=== PATIENT | female | born 1960 | race Caucasian/White ===

== ENCOUNTER 2020-02-03 13:32 | Outpatient (REF) | payer OTHER, SELFPAY ==
[2020-02-03 14:55] LABS: MANUAL DIFF FLAG NO
--- NOTE | 2020-02-03 14:55 | XR_ITS ---
EXAMINATION: XR CHEST 2 VIEWS CLINICAL INFORMATION: Bibasilar crackles. COMPARISON: None. TECHNIQUE: Frontal and lateral views of the chest were obtained. FINDINGS: The heart, great vessels, pulmonary vasculature and mediastinum are normal. The lungs show no focal infiltrate, effusion or pneumothorax. There is no acute osseous abnormality. A dual-lead, dual-chamber pacemaker/defibrillator device shows no lead fracture. IMPRESSION: No active cardiopulmonary disease.
[2020-02-03 15:00] LABS: Basophils Absolute Auto 0.1 X10*3/uL (0.0-0.2); Basophils Percent Auto 0.7 % (0-2); Eosinophils Absolute Auto 0.2 X10*3/uL (0.0-0.4); Eosinophils Percent Auto 3.4 % (0-4); Hematocrit 42.3 % (37-47); Hemoglobin 14.2 g/dl (12.0-16.0); Imm Gran Abs Auto 0.03 X10*3/uL (0.00-0.03); Imm Gran Pct Auto 0.4 % (0.0-0.4); Lymphocytes Absolute Auto 1.5 X10*3/uL (1.2-4.9); Lymphocytes Percent Auto 20.5 % (20-40); Mean Corpuscular HGB Conc 33.6 g/dl (31.0-35.0); Mean Corpuscular Hemoglobin 31.1 pg (27.0-33.0); Mean Corpuscular Volume 92.8 fL (80-98); Mean Platelet Volume 9.1 fL (9.4-12.3); Monocytes Absolute Auto 0.7 X10*3/uL (0.1-1.2); Monocytes Percent Auto 9.3 % (2-11); Neutrophils Absolute Auto 4.6 X10*3/uL (2.0-8.3); Neutrophils Percent Auto 65.7 % (45-73); Platelet Count 308 X10*3/uL (160-400); Red Blood Count 4.56 X10*6/uL (4.20-5.50); White Blood Count 7.1 X10*3/uL (4.8-10.8)
[2020-02-03 15:26] LABS: Alanine Aminotransferase 62 U/L (0-31); Albumin Level 4.3 g/dL (3.5-5.0); Alkaline Phosphatase 80 U/L (39-117); Anion Gap 12 (12-20); Aspartate Amino Transferase 25 U/L (5-31); Bilirubin Direct 0.3 mg/dL (0.0-0.5); Bilirubin Total 0.7 mg/dL (0.0-1.0); Blood Urea Nitrogen 14 mg/dL (9-16); Calcium 9.1 mg/dL (8.4-10.2); Carbon Dioxide 27 mmol/L (22-29); Chloride 104 mmol/L (96-108); Estimated Glomerular Filt Rate > 60; Glucose Random 101 mg/dL (60-115); Potassium 4.3 mmol/l (3.3-5.1); Sodium 139 mmol/L (135-145); Total Protein 6.8 g/dL (6.5-8.0)
[2020-02-03 16:13] LABS: Erythrocyte Sedimentation Rate 5 MM/HR (0-20)
[2020-02-08 21:02] LABS: Angiotensin Converting Enzyme 29 U/L (9-67)
== END 2020-02-03 13:33 | disposition home or self-care (01) ==
LOC: HO.LAB 13:32
PROVIDERS: PCP Pediatrics; Visit Provider Hospitalist
DX: D86.85 Sarcoid myocarditis (principal); R09.89 Other specified symptoms and signs involving the circulatory and respiratory systems; R74.01 Elevation of levels of liver transaminase levels; G47.33 Obstructive sleep apnea (adult) (pediatric); Z99.89 Dependence on other enabling machines and devices
CPT/HCPCS: 36415; 71046; 80048; 80076; 82164; 85025; 85652; 99205; 99214

== ENCOUNTER 2020-02-20 09:05 | Outpatient (REF) | payer OTHER, SELFPAY | END 2020-02-20 09:06 | disposition home or self-care (01) | LOC: HO.MDS 09:05 | PROVIDERS: PCP Pediatrics; Visit Provider Hospitalist | DX: D86.89 Sarcoidosis of other sites (principal) | CPT/HCPCS: 96413; 96415; J1745 ==

== ENCOUNTER 2020-03-05 09:30 | Outpatient (REF) | payer MEDICARE, OTHER, SELFPAY | END 2020-03-05 09:31 | disposition home or self-care (01) | LOC: HO.MDS 09:30 | PROVIDERS: PCP Pediatrics; Visit Provider Hospitalist | DX: D86.85 Sarcoid myocarditis (principal) | CPT/HCPCS: 96413; 96415; J1745 ==

== ENCOUNTER 2020-03-14 11:28 | Outpatient (REF) | payer MEDICARE, SELFPAY ==
[2020-03-14 13:18] LABS: MANUAL DIFF FLAG NO
[2020-03-14 13:22] LABS: Basophils Absolute Auto 0.1 X10*3/uL (0.0-0.2); Basophils Percent Auto 0.7 % (0-2); Eosinophils Absolute Auto 0.2 X10*3/uL (0.0-0.4); Eosinophils Percent Auto 2.2 % (0-4); Hematocrit 43.7 % (37-47); Hemoglobin 14.5 g/dl (12.0-16.0); Imm Gran Abs Auto 0.03 X10*3/uL (0.00-0.03); Imm Gran Pct Auto 0.4 % (0.0-0.4); Lymphocytes Absolute Auto 1.8 X10*3/uL (1.2-4.9); Lymphocytes Percent Auto 24.8 % (20-40); Mean Corpuscular HGB Conc 33.2 g/dl (31.0-35.0); Mean Corpuscular Hemoglobin 31.2 pg (27.0-33.0); Mean Platelet Volume 9.9 fL (9.4-12.3); Monocytes Absolute Auto 0.7 X10*3/uL (0.1-1.2); Neutrophils Absolute Auto 4.5 X10*3/uL (2.0-8.3); Neutrophils Percent Auto 61.9 % (45-73); Platelet Count 298 X10*3/uL (160-400); Red Blood Count 4.65 X10*6/uL (4.20-5.50); White Blood Count 7.3 X10*3/uL (4.8-10.8)
[2020-03-14 13:32] LABS: D Dimer < 200 NG/ML
[2020-03-14 13:51] LABS: Alanine Aminotransferase 171 U/L (0-31); Albumin Level 4.3 g/dL (3.5-5.0); Alkaline Phosphatase 93 U/L (39-117); Anion Gap 10 (12-20); Aspartate Amino Transferase 49 U/L (5-31); Bilirubin Direct 0.3 mg/dL (0.0-0.5); Bilirubin Total 0.7 mg/dL (0.0-1.0); Blood Urea Nitrogen 12 mg/dL (9-16); Calcium 8.9 mg/dL (8.4-10.2); Carbon Dioxide 30 mmol/L (22-29); Chloride 102 mmol/L (96-108); Estimated Glomerular Filt Rate > 60; Glucose Random 105 mg/dL (60-115); Potassium 4.1 mmol/l (3.3-5.1); Sodium 138 mmol/L (135-145); Total Protein 6.9 g/dL (6.5-8.0); Troponin-I High Sensitivity < 3.5 ng/L (<3.5-17.0)
[2020-03-14 14:41] LABS: Erythrocyte Sedimentation Rate 2 MM/HR (0-20)
[2020-03-22 00:52] LABS: Angiotensin Converting Enzyme 46 U/L (9-67)
== END 2020-03-14 11:29 | disposition home or self-care (01) ==
LOC: HO.LAB 11:28
PROVIDERS: PCP Pediatrics; Visit Provider Hospitalist
DX: R09.02 Hypoxemia (principal); G47.33 Obstructive sleep apnea (adult) (pediatric); D86.85 Sarcoid myocarditis; R09.89 Other specified symptoms and signs involving the circulatory and respiratory systems; R47.01 Aphasia; D86.9 Sarcoidosis, unspecified; Z23 Encounter for immunization; Z79.899 Other long term (current) drug therapy; Z99.89 Dependence on other enabling machines and devices
CPT/HCPCS: 36415; 80048; 80076; 82164; 84484; 85025; 85379; 85652; 90471; 90686; 99212

== ENCOUNTER 2020-04-02 08:49 | Outpatient (REF) | payer MEDICARE, OTHER, SELFPAY | END 2020-04-02 08:50 | disposition home or self-care (01) | LOC: HO.MDS 08:49 | PROVIDERS: PCP Pediatrics; Visit Provider Hospitalist | DX: D86.85 Sarcoid myocarditis (principal) | CPT/HCPCS: 96413; 96415; J1745 ==

== ENCOUNTER 2020-05-04 13:10 | Outpatient (REF) | payer MEDICARE, OTHER, SELFPAY ==
[2020-05-04 15:00] LABS: MANUAL DIFF FLAG NO
[2020-05-04 15:10] LABS: Basophils Percent Auto 0.6 % (0-2); Eosinophils Absolute Auto 0.2 X10*3/uL (0.0-0.4); Eosinophils Percent Auto 2.6 % (0-4); Hematocrit 43.4 % (37-47); Hemoglobin 14.6 g/dl (12.0-16.0); Imm Gran Abs Auto 0.02 X10*3/uL (0.00-0.03); Imm Gran Pct Auto 0.3 % (0.0-0.4); Lymphocytes Absolute Auto 1.9 X10*3/uL (1.2-4.9); Lymphocytes Percent Auto 27.1 % (20-40); Mean Corpuscular HGB Conc 33.6 g/dl (31.0-35.0); Mean Corpuscular Hemoglobin 31.4 pg (27.0-33.0); Mean Corpuscular Volume 93.3 fL (80-98); Mean Platelet Volume 9.9 fL (9.4-12.3); Monocytes Absolute Auto 0.6 X10*3/uL (0.1-1.2); Monocytes Percent Auto 8.5 % (2-11); Neutrophils Absolute Auto 4.2 X10*3/uL (2.0-8.3); Neutrophils Percent Auto 60.9 % (45-73); Platelet Count 319 X10*3/uL (160-400); Red Blood Count 4.65 X10*6/uL (4.20-5.50); Red Cell Distribution Width 12.9 % (11.0-16.0); White Blood Count 6.9 X10*3/uL (4.8-10.8)
[2020-05-04 15:34] LABS: Alanine Aminotransferase 144 U/L (0-31); Albumin Level 4.3 g/dL (3.5-5.0); Alkaline Phosphatase 87 U/L (39-117); Anion Gap 10 (12-20); Aspartate Amino Transferase 71 U/L (5-31); Bilirubin Direct 0.3 mg/dL (0.0-0.5); Bilirubin Total 0.7 mg/dL (0.0-1.0); Blood Urea Nitrogen 12 mg/dL (9-16); Calcium 8.9 mg/dL (8.4-10.2); Carbon Dioxide 30 mmol/L (22-29); Chloride 102 mmol/L (96-108); Estimated Glomerular Filt Rate > 60; Glucose Random 96 mg/dL (60-115); Potassium 4.4 mmol/l (3.3-5.1); Sodium 138 mmol/L (135-145); Total Protein 6.8 g/dL (6.5-8.0)
[2020-05-10 22:02] LABS: Angiotensin Converting Enzyme 28 U/L (9-67)
== END 2020-05-04 13:11 | disposition home or self-care (01) ==
LOC: HO.LAB 13:10
PROVIDERS: PCP Pediatrics; Visit Provider Hospitalist
DX: D86.85 Sarcoid myocarditis (principal); R74.01 Elevation of levels of liver transaminase levels; R09.02 Hypoxemia; R09.89 Other specified symptoms and signs involving the circulatory and respiratory systems; G47.33 Obstructive sleep apnea (adult) (pediatric); F06.30 Mood disorder due to known physiological condition, unspecified; Z79.899 Other long term (current) drug therapy; Z99.89 Dependence on other enabling machines and devices
CPT/HCPCS: 36415; 80048; 80076; 82164; 85025; 99212

== ENCOUNTER 2020-05-14 14:12 | Outpatient (REF) | payer MEDICARE, OTHER, SELFPAY ==
--- NOTE | 2020-05-14 17:20 | PFT_ITS ---
INDICATION: Shortness of breath and sarcoidosis. SPIROMETRY: The FEV1 to FVC of 81% with an FEV1 of 2.64 L, which is 114% predicted and an FVC of 3.28 L, which is 110% predicted. No significant response to bronchodilators noted. The maximum voluntary ventilation only 68% predicted. LUNG VOLUMES: Total lung capacity 109% predicted with a diffusion capacity of 88% predicted. COMPARISON: PFTS from January 2019. INTERPRETATION: No obstructive nor restrictive ventilatory defects identified. No significant response to bronchodilators noted. The patient did have a moderate decrease in the maximum voluntary ventilation likely secondary to deconditioning and also her cardiac disease. Lung volumes are within normal limits and her diffusion capacity is within normal limits. When compared to 2018 trend decrease in the FVC, trend decrease in the FEV1, no significant change in the maximum voluntary ventilation, trend increase in the total lung capacity, and a significant decrease in the diffusion capacity. Clinical correlation warranted. MD ANTOINE Bar/JALEN / [id number]
== END 2020-05-14 14:13 | disposition home or self-care (01) ==
LOC: HO.RESP 14:12
PROVIDERS: Visit Provider Hospitalist
DX: D86.9 Sarcoidosis, unspecified (principal)
CPT/HCPCS: 94060; 94727; 94729

== ENCOUNTER 2020-05-29 09:36 | Outpatient (REF) | payer MEDICARE, SELFPAY | END 2020-05-29 09:37 | disposition home or self-care (01) | LOC: HO.MDS 09:36 | PROVIDERS: PCP Pediatrics; Visit Provider Hospitalist | DX: D86.85 Sarcoid myocarditis (principal) | CPT/HCPCS: 96413; 96415; J1745 ==

== ENCOUNTER 2020-07-16 13:13 | Outpatient (REF) | payer MEDICARE, MEDICAID, SELFPAY ==
[2020-07-16 14:48] LABS: MANUAL DIFF FLAG NO
[2020-07-16 14:54] LABS: Basophils Absolute Auto 0.1 X10*3/uL (0.0-0.2); Basophils Percent Auto 0.7 % (0-2); Eosinophils Absolute Auto 0.2 X10*3/uL (0.0-0.4); Eosinophils Percent Auto 2.6 % (0-4); Hematocrit 42.2 % (37-47); Imm Gran Abs Auto 0.01 X10*3/uL (0.00-0.03); Imm Gran Pct Auto 0.1 % (0.0-0.4); Lymphocytes Absolute Auto 1.6 X10*3/uL (1.2-4.9); Lymphocytes Percent Auto 18.3 % (20-40); Mean Corpuscular HGB Conc 33.2 g/dl (31.0-35.0); Mean Corpuscular Hemoglobin 30.7 pg (27.0-33.0); Mean Corpuscular Volume 92.5 fL (80-98); Mean Platelet Volume 9.7 fL (9.4-12.3); Monocytes Absolute Auto 0.7 X10*3/uL (0.1-1.2); Monocytes Percent Auto 7.8 % (2-11); Neutrophils Absolute Auto 6.1 X10*3/uL (2.0-8.3); Neutrophils Percent Auto 70.5 % (45-73); Platelet Count 378 X10*3/uL (160-400); Red Blood Count 4.56 X10*6/uL (4.20-5.50); Red Cell Distribution Width 12.4 % (11.0-16.0); White Blood Count 8.7 X10*3/uL (4.8-10.8)
[2020-07-16 15:29] LABS: Alanine Aminotransferase 63 U/L (0-31); Albumin Level 4.3 g/dL (3.5-5.0); Alkaline Phosphatase 69 U/L (39-117); Anion Gap 14 (12-20); Aspartate Amino Transferase 38 U/L (5-31); Bilirubin Direct 0.4 mg/dL (0.0-0.5); Bilirubin Total 1.1 mg/dL (0.0-1.0); Blood Urea Nitrogen 9 mg/dL (9-16); Calcium 9.4 mg/dL (8.4-10.2); Carbon Dioxide 29 mmol/L (22-29); Chloride 106 mmol/L (96-108); Estimated Glomerular Filt Rate > 60; Glucose Random 94 mg/dL (60-115); Potassium 4.7 mmol/L (3.3-5.1); Sodium 144 mmol/L (135-145)
[2020-07-16 15:51] LABS: Erythrocyte Sedimentation Rate 16 MM/HR (0-20)
[2020-07-17 04:37] LABS: SARS COV2 IgG Positive (Negative)
[2020-07-22 02:46] LABS: Angiotensin Converting Enzyme 20 U/L (9-67)
== END 2020-07-16 13:14 | disposition home or self-care (01) ==
LOC: HO.LAB 13:13
PROVIDERS: PCP Pediatrics; Visit Provider Hospitalist
DX: D86.85 Sarcoid myocarditis (principal); G47.33 Obstructive sleep apnea (adult) (pediatric); R59.1 Generalized enlarged lymph nodes; R74.01 Elevation of levels of liver transaminase levels; R09.89 Other specified symptoms and signs involving the circulatory and respiratory systems; D86.89 Sarcoidosis of other sites; D86.9 Sarcoidosis, unspecified; Z79.899 Other long term (current) drug therapy; Z86.16 Personal history of COVID-19; Z99.89 Dependence on other enabling machines and devices
CPT/HCPCS: 36415; 80048; 80076; 82164; 85025; 85652; 86769; 99212

== ENCOUNTER 2020-08-17 13:40 | Outpatient (REF) | payer MEDICARE, OTHER, SELFPAY | END 2020-08-17 13:41 | disposition home or self-care (01) | LOC: HO.MDS 13:40 | PROVIDERS: PCP Pediatrics; Visit Provider Hospitalist | DX: D86.89 Sarcoidosis of other sites (principal) | CPT/HCPCS: 96413; 96415; J1745 ==

== ENCOUNTER 2020-09-14 10:09 | Outpatient (REF) | payer MEDICARE, OTHER, SELFPAY | END 2020-09-14 10:10 | disposition home or self-care (01) | LOC: HO.MDS 10:09 | PROVIDERS: PCP Pediatrics; Visit Provider Hospitalist | DX: D86.89 Sarcoidosis of other sites (principal) | CPT/HCPCS: 96413; 96415; J1745 ==

== ENCOUNTER 2020-09-18 13:02 | Outpatient (REF) | payer MEDICARE, MEDICAID, OTHER, SELFPAY ==
[2020-09-18 14:25] LABS: MANUAL DIFF FLAG NO
[2020-09-18 14:34] LABS: Basophils Percent Auto 0.6 % (0-2); Eosinophils Absolute Auto 0.1 X10*3/uL (0.0-0.4); Eosinophils Percent Auto 1.6 % (0-4); Hematocrit 41.6 % (37-47); Hemoglobin 13.9 g/dl (12.0-16.0); Imm Gran Abs Auto 0.01 X10*3/uL (0.00-0.03); Imm Gran Pct Auto 0.2 % (0.0-0.4); Lymphocytes Absolute Auto 2.2 X10*3/uL (1.2-4.9); Lymphocytes Percent Auto 35.8 % (20-40); Mean Corpuscular HGB Conc 33.4 g/dl (31.0-35.0); Mean Corpuscular Hemoglobin 30.6 pg (27.0-33.0); Mean Corpuscular Volume 91.6 fL (80-98); Mean Platelet Volume 10.1 fL (9.4-12.3); Monocytes Absolute Auto 0.5 X10*3/uL (0.1-1.2); Monocytes Percent Auto 8.6 % (2-11); Neutrophils Absolute Auto 3.3 X10*3/uL (2.0-8.3); Neutrophils Percent Auto 53.2 % (45-73); Platelet Count 268 X10*3/uL (160-400); Red Blood Count 4.54 X10*6/uL (4.20-5.50); Red Cell Distribution Width 12.8 % (11.0-16.0); White Blood Count 6.3 X10*3/uL (4.8-10.8)
[2020-09-18 14:46] LABS: Alanine Aminotransferase 51 U/L (0-31); Albumin Level 4.3 g/dL (3.5-5.0); Alkaline Phosphatase 77 U/L (39-117); Anion Gap 10 (12-20); Aspartate Amino Transferase 31 U/L (5-31); Bilirubin Direct 0.3 mg/dL (0.0-0.5); Bilirubin Total 0.8 mg/dL (0.0-1.0); Blood Urea Nitrogen 10 mg/dL (9-16); Calcium 9.3 mg/dL (8.4-10.2); Carbon Dioxide 29 mmol/L (22-29); Chloride 105 mmol/L (96-108); Estimated Glomerular Filt Rate > 60; Glucose Random 83 mg/dL (60-115); Sodium 140 mmol/L (135-145); Total Protein 6.9 g/dL (6.5-8.0)
[2020-09-18 15:27] LABS: Erythrocyte Sedimentation Rate 5 MM/HR (0-20)
== END 2020-09-18 13:03 | disposition home or self-care (01) ==
LOC: HO.LAB 13:02
PROVIDERS: PCP Pediatrics; Visit Provider Hospitalist
DX: R74.01 Elevation of levels of liver transaminase levels (principal); D86.85 Sarcoid myocarditis; U07.1 COVID-19; D86.9 Sarcoidosis, unspecified; R09.02 Hypoxemia; G47.33 Obstructive sleep apnea (adult) (pediatric); Z99.89 Dependence on other enabling machines and devices; J02.8 Acute pharyngitis due to other specified organisms; B00.1 Herpesviral vesicular dermatitis
CPT/HCPCS: 36415; 80048; 80076; 85025; 85652; 99212

== ENCOUNTER 2020-10-12 10:09 | Outpatient (REF) | payer MEDICARE, MEDICAID, OTHER, SELFPAY | END 2020-10-12 10:10 | disposition home or self-care (01) | LOC: HO.MDS 10:09 | PROVIDERS: PCP Pediatrics; Visit Provider Hospitalist | DX: D86.85 Sarcoid myocarditis (principal) | CPT/HCPCS: 96413; 96415; J1745 ==

== ENCOUNTER 2020-11-09 10:05 | Outpatient (REF) | payer MEDICARE, MEDICAID, SELFPAY | END 2020-11-09 10:06 | disposition home or self-care (01) | LOC: HO.MDS 10:05 | PROVIDERS: PCP Pediatrics; Visit Provider Hospitalist | DX: D86.85 Sarcoid myocarditis (principal) | CPT/HCPCS: 96413; 96415; J1745 ==

== ENCOUNTER 2020-11-23 13:23 | Outpatient (REF) | payer MEDICARE, MEDICAID, SELFPAY ==
[2020-11-23 14:49] LABS: MANUAL DIFF FLAG NO
[2020-11-23 14:52] LABS: Basophils Absolute Auto 0.1 X10*3/uL (0.0-0.2); Basophils Percent Auto 0.7 % (0-2); Eosinophils Absolute Auto 0.2 X10*3/uL (0.0-0.4); Eosinophils Percent Auto 2.3 % (0-4); Hematocrit 40.8 % (37-47); Hemoglobin 13.6 g/dl (12.0-16.0); Imm Gran Abs Auto 0.02 X10*3/uL (0.00-0.03); Imm Gran Pct Auto 0.3 % (0.0-0.4); Lymphocytes Percent Auto 28.8 % (20-40); Mean Corpuscular HGB Conc 33.3 g/dl (31.0-35.0); Mean Corpuscular Hemoglobin 31.3 pg (27.0-33.0); Mean Corpuscular Volume 93.8 fL (80-98); Mean Platelet Volume 9.7 fL (9.4-12.3); Monocytes Absolute Auto 0.7 X10*3/uL (0.1-1.2); Monocytes Percent Auto 10.1 % (2-11); Neutrophils Absolute Auto 4.1 X10*3/uL (2.0-8.3); Neutrophils Percent Auto 57.8 % (45-73); Platelet Count 268 X10*3/uL (160-400); Red Blood Count 4.35 X10*6/uL (4.20-5.50); Red Cell Distribution Width 13.2 % (11.0-16.0); White Blood Count 7.1 X10*3/uL (4.8-10.8)
[2020-11-23 15:19] LABS: Alanine Aminotransferase 41 U/L (0-31); Albumin Level 4.1 g/dL (3.5-5.0); Alkaline Phosphatase 76 U/L (39-117); Anion Gap 11 (12-20); Aspartate Amino Transferase 25 U/L (5-31); Bilirubin Direct 0.2 mg/dL (0.0-0.5); Bilirubin Total 0.7 mg/dL (0.0-1.0); Blood Urea Nitrogen 15 mg/dL (9-16); Calcium 9.6 mg/dL (8.4-10.2); Carbon Dioxide 30 mmol/L (22-29); Chloride 105 mmol/L (96-108); Estimated Glomerular Filt Rate > 60; Glucose Random 82 mg/dL (60-115); Sodium 141 mmol/L (135-145); Total Protein 6.7 g/dL (6.5-8.0)
[2020-11-25 08:03] LABS: SARS COV2 IgG Positive (Negative)
== END 2020-11-23 13:24 | disposition home or self-care (01) ==
LOC: HO.LAB 13:23
PROVIDERS: PCP Pediatrics; Visit Provider Hospitalist
DX: U07.1 COVID-19 (principal); D86.9 Sarcoidosis, unspecified; R74.01 Elevation of levels of liver transaminase levels; D86.85 Sarcoid myocarditis; G47.33 Obstructive sleep apnea (adult) (pediatric); Z99.89 Dependence on other enabling machines and devices; Z79.899 Other long term (current) drug therapy
CPT/HCPCS: 99212; 36415; 80048; 80076; 85025; 86769

== ENCOUNTER 2020-12-07 10:12 | Outpatient (REF) | payer MEDICARE, MEDICAID, SELFPAY | END 2020-12-07 10:13 | disposition home or self-care (01) | LOC: HO.MDS 10:12 | PROVIDERS: PCP Pediatrics; Visit Provider Hospitalist | DX: D86.85 Sarcoid myocarditis (principal) | CPT/HCPCS: 96413; 96415; J1745 ==

== ENCOUNTER 2021-01-04 10:09 | Outpatient (REF) | payer MEDICARE, MEDICAID, SELFPAY | END 2021-01-04 10:10 | disposition home or self-care (01) | LOC: HO.MDS 10:09 | PROVIDERS: PCP Pediatrics; Visit Provider Hospitalist | DX: D86.85 Sarcoid myocarditis (principal) | CPT/HCPCS: 96413; 96415; J1745 ==

== ENCOUNTER 2021-02-01 10:10 | Outpatient (REF) | payer MEDICARE, MEDICAID, SELFPAY | END 2021-02-01 10:11 | disposition home or self-care (01) | LOC: HO.MDS 10:10 | PROVIDERS: PCP Pediatrics; Visit Provider Hospitalist | DX: D86.85 Sarcoid myocarditis (principal) | CPT/HCPCS: 96413; 96415; J1745 ==

== ENCOUNTER 2021-02-22 14:02 | Outpatient (REF) | payer MEDICARE, MEDICAID, SELFPAY ==
--- NOTE | ~2021-02-22 | XR_ITS ---
EXAMINATION: XR CHEST CLINICAL INFORMATION: Sarcoidosis COMPARISON: Previous chest x-ray January 2020 TECHNIQUE: 2 views of the chest were obtained. FINDINGS: The cardiac silhouette does not appear enlarged. The left subclavian AICD device appears unchanged. Hilar and mediastinal contours are unremarkable. The lungs are clear. There is no pleural effusion or pneumothorax. Bony structures are unremarkable. XR/XR chest 2V IMPRESSION: Left subclavian AICD device. No x-ray evidence of sarcoidosis.
[2021-02-22 15:06] LABS: MANUAL DIFF FLAG NO
[2021-02-22 15:17] LABS: Basophils Percent Auto 0.5 % (0-2); Eosinophils Absolute Auto 0.1 X10*3/uL (0.0-0.4); Eosinophils Percent Auto 1.6 % (0-4); Hematocrit 42.8 % (37-47); Hemoglobin 14.8 g/dl (12.0-16.0); Imm Gran Abs Auto 0.02 X10*3/uL (0.00-0.03); Imm Gran Pct Auto 0.3 % (0.0-0.4); Lymphocytes Absolute Auto 2.1 X10*3/uL (1.2-4.9); Lymphocytes Percent Auto 28.9 % (20-40); Mean Corpuscular HGB Conc 34.6 g/dl (31.0-35.0); Mean Corpuscular Hemoglobin 31.8 pg (27.0-33.0); Mean Platelet Volume 9.8 fL (9.4-12.3); Monocytes Absolute Auto 0.6 X10*3/uL (0.1-1.2); Monocytes Percent Auto 8.3 % (2-11); Neutrophils Absolute Auto 4.4 X10*3/uL (2.0-8.3); Neutrophils Percent Auto 60.4 % (45-73); Platelet Count 307 X10*3/uL (160-400); Red Blood Count 4.65 X10*6/uL (4.20-5.50); Red Cell Distribution Width 12.1 % (11.0-16.0); White Blood Count 7.3 X10*3/uL (4.8-10.8)
[2021-02-22 15:37] LABS: Alanine Aminotransferase 41 U/L (0-31); Albumin Level 4.4 g/dL (3.5-5.0); Alkaline Phosphatase 72 U/L (39-117); Anion Gap 13 (12-20); Aspartate Amino Transferase 27 U/L (5-31); Bilirubin Direct 0.3 mg/dL (0.0-0.5); Bilirubin Total 0.8 mg/dL (0.0-1.0); Blood Urea Nitrogen 12 mg/dL (9-16); Calcium 9.5 mg/dL (8.4-10.2); Carbon Dioxide 27 mmol/L (22-29); Chloride 104 mmol/L (96-108); Estimated Glomerular Filt Rate > 60; Glucose Random 105 mg/dL (60-115); Sodium 140 mmol/L (135-145)
[2021-02-22 16:01] LABS: Erythrocyte Sedimentation Rate 2 MM/HR (0-20)
[2021-02-28 06:32] LABS: Angiotensin Converting Enzyme 30.8 U/L (9-67)
== END 2021-02-22 14:03 | disposition home or self-care (01) ==
LOC: HO.LAB 14:02
PROVIDERS: PCP Pediatrics; Visit Provider Hospitalist
DX: U07.1 COVID-19 (principal); D86.9 Sarcoidosis, unspecified; R74.01 Elevation of levels of liver transaminase levels; D86.85 Sarcoid myocarditis; G47.33 Obstructive sleep apnea (adult) (pediatric); Z99.89 Dependence on other enabling machines and devices; Z23 Encounter for immunization
CPT/HCPCS: 36415; 71046; 80048; 80076; 82164; 85025; 85652; 90471; 90686; 99212

== ENCOUNTER 2021-03-04 10:04 | Outpatient (REF) | payer MEDICARE, MEDICAID, SELFPAY | END 2021-03-04 10:05 | disposition home or self-care (01) | LOC: HO.MDS 10:04 | PROVIDERS: PCP Pediatrics; Visit Provider Hospitalist | DX: D86.85 Sarcoid myocarditis (principal) | CPT/HCPCS: 96413; 96415; J1745 ==

== ENCOUNTER 2021-04-01 10:16 | Outpatient (REF) | payer MEDICARE, MEDICAID, SELFPAY | END 2021-04-01 10:17 | disposition home or self-care (01) | LOC: HO.MDS 10:16 | PROVIDERS: PCP Pediatrics; Visit Provider Hospitalist | DX: D86.85 Sarcoid myocarditis (principal) | CPT/HCPCS: 96413; 96415; J1745 ==

== ENCOUNTER 2021-04-29 10:09 | Outpatient (REF) | payer MEDICARE, MEDICAID, SELFPAY | END 2021-04-29 10:10 | disposition home or self-care (01) | LOC: HO.MDS 10:09 | PROVIDERS: PCP Pediatrics; Visit Provider Hospitalist | DX: D86.85 Sarcoid myocarditis (principal) | CPT/HCPCS: 96413; 96415; J1745 ==

== ENCOUNTER 2021-05-13 09:54 | Outpatient (REF) | payer MEDICARE, MEDICAID, SELFPAY ==
[2021-05-13 11:17] LABS: MANUAL DIFF FLAG NO
[2021-05-13 11:30] LABS: Basophils Absolute Auto 0.1 X10*3/uL (0.0-0.2); Basophils Percent Auto 1.1 % (0-2); Eosinophils Absolute Auto 0.1 X10*3/uL (0.0-0.4); Eosinophils Percent Auto 2.3 % (0-4); Hematocrit 43.6 % (37.0-47.0); Hemoglobin 14.7 g/dl (12.0-16.0); Imm Gran Abs Auto 0.02 X10*3/uL (0.00-0.03); Imm Gran Pct Auto 0.4 % (0.0-0.4); Lymphocytes Absolute Auto 1.8 X10*3/uL (1.2-4.9); Mean Corpuscular HGB Conc 33.7 g/dl (31.0-35.0); Mean Corpuscular Hemoglobin 31.4 pg (27.0-33.0); Mean Corpuscular Volume 93.2 fL (80.0-98.0); Mean Platelet Volume 9.8 fL (9.4-12.3); Monocytes Absolute Auto 0.5 X10*3/uL (0.1-1.2); Monocytes Percent Auto 9.4 % (2-11); Neutrophils Percent Auto 53.8 % (45-73); Platelet Count 266 X10*3/uL (160-400); Red Blood Count 4.68 X10*6/uL (4.20-5.50); Red Cell Distribution Width 12.5 % (11.0-16.0); White Blood Count 5.5 X10*3/uL (4.8-10.8)
[2021-05-13 12:07] LABS: Erythrocyte Sedimentation Rate 2 MM/HR (0-20)
[2021-05-13 12:15] LABS: Alanine Aminotransferase 46 U/L (0-31); Albumin Level 4.3 g/dL (3.5-5.0); Alkaline Phosphatase 77 U/L (39-117); Anion Gap 10 (12-20); Aspartate Amino Transferase 25 U/L (5-31); Bilirubin Direct 0.3 mg/dL (0.0-0.5); Bilirubin Total 0.8 mg/dL (0.0-1.0); Blood Urea Nitrogen 18 mg/dL (9-16); Calcium 9.7 mg/dL (8.4-10.2); Carbon Dioxide 30 mmol/L (22-29); Chloride 108 mmol/L (96-108); Estimated Glomerular Filt Rate > 60; Glucose Random 95 mg/dL (60-115); Potassium 4.8 mmol/L (3.3-5.1); Sodium 143 mmol/L (135-145); Total Protein 7.2 g/dL (6.5-8.0)
[2021-05-14 04:20] LABS: SARS COV2 IgG Negative (Negative)
== END 2021-05-13 09:55 | disposition home or self-care (01) ==
LOC: HO.LAB 09:54
PROVIDERS: PCP Pediatrics; Visit Provider Hospitalist
DX: G47.33 Obstructive sleep apnea (adult) (pediatric) (principal); D86.9 Sarcoidosis, unspecified; U07.1 COVID-19; D86.85 Sarcoid myocarditis; K21.00 Gastro-esophageal reflux disease with esophagitis, without bleeding; R74.01 Elevation of levels of liver transaminase levels; Z99.89 Dependence on other enabling machines and devices
CPT/HCPCS: 36415; 80048; 80076; 85025; 85652; 86769; 99212

== ENCOUNTER 2021-05-30 07:33 | Outpatient (REF) | payer MEDICARE, MEDICAID, SELFPAY | END 2021-05-30 07:34 | disposition home or self-care (01) | LOC: HO.MDS 07:33 | PROVIDERS: PCP Pediatrics; Visit Provider Hospitalist | DX: D86.85 Sarcoid myocarditis (principal); G47.33 Obstructive sleep apnea (adult) (pediatric); Z99.89 Dependence on other enabling machines and devices | CPT/HCPCS: 96413; 96415; J1745 ==

== ENCOUNTER 2021-06-24 10:35 | Outpatient (REF) | payer MEDICARE, MEDICAID, SELFPAY | END 2021-06-24 10:36 | disposition home or self-care (01) | LOC: HO.MDS 10:35 | PROVIDERS: Visit Provider Hospitalist | DX: D86.85 Sarcoid myocarditis (principal) | CPT/HCPCS: 96413; 96415; J1745 ==

== ENCOUNTER 2021-07-22 10:04 | Outpatient (REF) | payer MEDICARE, MEDICAID, SELFPAY | END 2021-07-22 10:05 | disposition home or self-care (01) | LOC: HO.MDS 10:04 | PROVIDERS: Visit Provider Hospitalist | DX: D86.85 Sarcoid myocarditis (principal) | CPT/HCPCS: 96413; 96415; J1745 ==

== ENCOUNTER 2021-08-19 10:16 | Outpatient (REF) | payer MEDICARE, MEDICAID, SELFPAY | END 2021-08-19 10:17 | disposition home or self-care (01) | LOC: HO.MDS 10:16 | PROVIDERS: Visit Provider Hospitalist | DX: D86.85 Sarcoid myocarditis (principal) | CPT/HCPCS: 96413; 96415; J1745 ==

== ENCOUNTER 2021-09-16 10:05 | Outpatient (REF) | payer MEDICARE, MEDICAID, SELFPAY | END 2021-09-16 10:06 | disposition home or self-care (01) | LOC: HO.MDS 10:05 | PROVIDERS: Visit Provider Hospitalist | DX: D86.85 Sarcoid myocarditis (principal) | CPT/HCPCS: 96413; 96415; J1745 ==

== ENCOUNTER 2021-10-14 10:11 | Outpatient (REF) | payer MEDICARE, MEDICAID, SELFPAY | END 2021-10-14 10:12 | disposition home or self-care (01) | LOC: HO.MDS 10:11 | PROVIDERS: Visit Provider Hospitalist | DX: D86.85 Sarcoid myocarditis (principal) | CPT/HCPCS: 96413; 96415; J1745 ==

== ENCOUNTER 2021-11-12 13:40 | Outpatient (REF) | payer MEDICARE, MEDICAID, SELFPAY ==
[2021-11-12 13:49] LABS: MANUAL DIFF FLAG NO
[2021-11-12 14:37] LABS: Basophils Percent Auto 0.4 % (0-2); Eosinophils Absolute Auto 0.1 X10*3/uL (0.0-0.4); Eosinophils Percent Auto 1.6 % (0-4); Hematocrit 40.2 % (37.0-47.0); Hemoglobin 13.8 g/dl (12.0-16.0); Imm Gran Abs Auto 0.02 X10*3/uL (0.00-0.03); Imm Gran Pct Auto 0.3 % (0.0-0.4); Lymphocytes Absolute Auto 2.6 X10*3/uL (1.2-4.9); Mean Corpuscular HGB Conc 34.3 g/dl (31.0-35.0); Mean Corpuscular Volume 90.3 fL (80.0-98.0); Mean Platelet Volume 10.1 fL (9.4-12.3); Monocytes Absolute Auto 0.6 X10*3/uL (0.1-1.2); Monocytes Percent Auto 7.8 % (2-11); Neutrophils Percent Auto 54.9 % (45-73); Platelet Count 263 X10*3/uL (160-400); Red Blood Count 4.45 X10*6/uL (4.20-5.50); Red Cell Distribution Width 12.4 % (11.0-16.0); White Blood Count 7.3 X10*3/uL (4.8-10.8)
[2021-11-12 15:00] LABS: Alanine Aminotransferase 59 U/L (0-31); Albumin Level 4.2 g/dL (3.5-5.0); Alkaline Phosphatase 71 U/L (39-117); Anion Gap 11 (12-20); Aspartate Amino Transferase 37 U/L (5-31); Bilirubin Direct 0.5 mg/dL (0.0-0.5); Bilirubin Total 1.7 mg/dL (0.0-1.0); Blood Urea Nitrogen 15 mg/dL (9-16); Calcium 9.4 mg/dL (8.4-10.2); Carbon Dioxide 28 mmol/L (22-29); Chloride 104 mmol/L (96-108); Estimated Glomerular Filt Rate > 60; Glucose Random 82 mg/dL (60-115); Potassium 4.3 mmol/L (3.3-5.1); Sodium 139 mmol/L (135-145); Total Protein 6.9 g/dL (6.5-8.0)
[2021-11-12 15:19] LABS: Erythrocyte Sedimentation Rate 3 MM/HR (0-20)
[2021-11-14 23:32] LABS: TS Negative Control Passed; TS Panel A 0; TS Panel B 0; TS Positive Control Passed; TSpotTB Negative (Negative)
[2021-11-18 13:21] LABS: Vitamin D 25-OH, D2 <4 ng/mL; Vitamin D 25-OH, D3 39 ng/mL; Vitamin D 25-OH, Total 39 ng/mL (30-100)
== END 2021-11-12 13:41 | disposition home or self-care (01) ==
LOC: HO.LAB 13:40
PROVIDERS: PCP Pediatrics; Visit Provider Hospitalist
DX: Z11.1 Encounter for screening for respiratory tuberculosis (principal); D86.9 Sarcoidosis, unspecified; D86.85 Sarcoid myocarditis; R74.01 Elevation of levels of liver transaminase levels; K21.00 Gastro-esophageal reflux disease with esophagitis, without bleeding; G47.33 Obstructive sleep apnea (adult) (pediatric); Z99.89 Dependence on other enabling machines and devices
CPT/HCPCS: 36415; 80048; 80076; 82306; 85025; 85652; 86481; 99212

== ENCOUNTER 2021-11-15 10:15 | Outpatient (REF) | payer MEDICARE, MEDICAID, SELFPAY | END 2021-11-15 10:16 | disposition home or self-care (01) | LOC: HO.MDS 10:15 | PROVIDERS: Visit Provider Hospitalist | DX: D86.85 Sarcoid myocarditis (principal) | CPT/HCPCS: 96413; 96415; J1745 ==

== ENCOUNTER 2021-12-13 10:20 | Outpatient (REF) | payer MEDICARE, MEDICAID, SELFPAY | END 2021-12-13 10:21 | disposition home or self-care (01) | LOC: HO.MDS 10:20 | PROVIDERS: Visit Provider Hospitalist | DX: D86.85 Sarcoid myocarditis (principal) | CPT/HCPCS: 96365; J1745 ==

== ENCOUNTER 2022-01-10 10:46 | Outpatient (REF) | payer MEDICARE, MEDICAID, SELFPAY | END 2022-01-10 10:47 | disposition home or self-care (01) | LOC: HO.MDS 10:46 | PROVIDERS: Visit Provider Hospitalist | DX: D86.85 Sarcoid myocarditis (principal) | CPT/HCPCS: 96413; 96415; J1745 ==

== ENCOUNTER 2022-02-04 10:14 | Outpatient (REF) | payer MEDICARE, MEDICAID, SELFPAY | END 2022-02-04 10:15 | disposition home or self-care (01) | LOC: HO.MDS 10:14 | PROVIDERS: Visit Provider Hospitalist | DX: D86.85 Sarcoid myocarditis (principal) | CPT/HCPCS: 96413; 96415; J1745 ==

== ENCOUNTER 2022-02-14 09:14 | Outpatient (REF) | payer MEDICARE, MEDICAID, SELFPAY ==
--- NOTE | ~2022-02-14 | US_ITS ---
EXAMINATION: US ABDOMEN LIMITED CLINICAL INFORMATION: Elevated liver transaminase levels. COMPARISON: None TECHNIQUE: Real-time imaging of the right upper quadrant abdominal viscera. FINDINGS: PANCREAS: Normal. LIVER: The liver is normal in size. The liver contour is normal. Liver echotexture is increased. No focal hepatic lesion. There is no intrahepatic biliary duct dilatation seen. GALLBLADDER: Normal. The gallbladder is physiologically distended without evidence of stones, sludge, polyps, wall thickening or pericholecystic fluid. COMMON BILE DUCT: Normal in caliber measuring 0.7 cm in diameter. RIGHT KIDNEY: Normal. No hydronephrosis. No renal calculi or focal parenchymal lesions. The kidney measures 11.5 cm in maximum dimension. FREE FLUID: None. US/US abdomen limited IMPRESSION: Echogenic liver. Differential would include fatty infiltration and hepatocellular disease.
== END 2022-02-14 09:15 | disposition home or self-care (01) ==
LOC: HO.US 09:14
PROVIDERS: Visit Provider Hospitalist
DX: R74.01 Elevation of levels of liver transaminase levels (principal)
CPT/HCPCS: 76705

== ENCOUNTER 2022-03-04 10:06 | Outpatient (REF) | payer MEDICARE, MEDICAID, SELFPAY | END 2022-03-04 10:07 | disposition home or self-care (01) | LOC: HO.MDS 10:06 | PROVIDERS: Visit Provider Hospitalist | DX: D86.85 Sarcoid myocarditis (principal) | CPT/HCPCS: 96413; 96415; J1745 ==

== ENCOUNTER 2022-04-01 10:16 | Outpatient (REF) | payer MEDICARE, MEDICAID, SELFPAY | END 2022-04-01 10:17 | disposition home or self-care (01) | LOC: HO.MDS 10:16 | PROVIDERS: Visit Provider Hospitalist | DX: D86.85 Sarcoid myocarditis (principal) | CPT/HCPCS: 96413; 96415; J1745 ==

== ENCOUNTER 2022-04-29 10:17 | Outpatient (REF) | payer OTHER, SELFPAY | END 2022-04-29 10:18 | disposition home or self-care (01) | LOC: HO.MDS 10:17 | PROVIDERS: Visit Provider Hospitalist | DX: D86.85 Sarcoid myocarditis (principal) | CPT/HCPCS: 96413; 96415; J1745 ==

== ENCOUNTER → 2022-05-15 12:52 | Outpatient (BNVA) | payer OTHER, SELFPAY | PROVIDERS: PCP Pediatrics; Visit Provider Hospitalist | DX: R74.01 Elevation of levels of liver transaminase levels (principal); D86.85 Sarcoid myocarditis; J44.9 Chronic obstructive pulmonary disease, unspecified; J31.0 Chronic rhinitis; G47.33 Obstructive sleep apnea (adult) (pediatric); Z99.89 Dependence on other enabling machines and devices | CPT/HCPCS: 99212 ==

== ENCOUNTER 2022-05-15 13:28 | Outpatient (REF) | payer OTHER, SELFPAY ==
[2022-05-15 14:56] LABS: Erythrocyte Sedimentation Rate 5 MM/HR (0-20)
[2022-05-15 15:01] LABS: Alanine Aminotransferase 33 U/L (0-31); Alkaline Phosphatase 62 U/L (39-117); Anion Gap 10 (12-20); Aspartate Amino Transferase 21 U/L (5-31); Bilirubin Direct 0.3 mg/dL (0.0-0.5); Bilirubin Total 1.3 mg/dL (0.0-1.0); Blood Urea Nitrogen 11 mg/dL (9-16); Calcium 9.4 mg/dL (8.4-10.2); Carbon Dioxide 31 mmol/L (22-29); Chloride 103 mmol/L (96-108); Estimated Glomerular Filt Rate > 60; Glucose Random 80 mg/dL (60-115); Potassium 3.6 mmol/L (3.3-5.1); Sodium 140 mmol/L (135-145); Total Protein 6.5 g/dL (6.5-8.0)
== END 2022-05-15 13:29 | disposition home or self-care (01) ==
LOC: HO.MDS 13:28
PROVIDERS: PCP Pediatrics; Visit Provider Hospitalist
DX: D86.85 Sarcoid myocarditis (principal); R74.01 Elevation of levels of liver transaminase levels; R59.1 Generalized enlarged lymph nodes; K21.00 Gastro-esophageal reflux disease with esophagitis, without bleeding; G47.33 Obstructive sleep apnea (adult) (pediatric); Z99.89 Dependence on other enabling machines and devices; Z79.899 Other long term (current) drug therapy
CPT/HCPCS: 36415; 80048; 80076; 85652

== ENCOUNTER 2022-05-27 09:32 | Outpatient (REF) | payer OTHER, SELFPAY | END 2022-05-27 09:33 | disposition home or self-care (01) | LOC: HO.MDS 09:32 | PROVIDERS: Visit Provider Hospitalist | DX: D86.85 Sarcoid myocarditis (principal) | CPT/HCPCS: 96413; 96415; J1745 ==

== ENCOUNTER 2022-06-24 10:36 | Outpatient (REF) | payer OTHER, SELFPAY | END 2022-06-24 10:37 | disposition home or self-care (01) | LOC: HO.MDS 10:36 | PROVIDERS: Visit Provider Hospitalist | DX: D86.85 Sarcoid myocarditis (principal) | CPT/HCPCS: 96413; 96415; J1745 ==

== ENCOUNTER 2022-07-22 10:12 | Outpatient (REF) | payer OTHER, SELFPAY | END 2022-07-22 10:13 | disposition home or self-care (01) | LOC: HO.MDS 10:12 | PROVIDERS: Visit Provider Hospitalist | DX: D86.85 Sarcoid myocarditis (principal) | CPT/HCPCS: 96413; 96415; J1745 ==

== ENCOUNTER 2022-08-19 09:56 | Outpatient (REF) | payer OTHER, SELFPAY | END 2022-08-19 09:57 | disposition home or self-care (01) | LOC: HO.MDS 09:56 | PROVIDERS: Visit Provider Hospitalist | DX: D86.85 Sarcoid myocarditis (principal) | CPT/HCPCS: 96413; 96415; J1745 ==

== ENCOUNTER 2022-09-03 11:29 | Outpatient (REF) | payer OTHER, SELFPAY ==
[2022-09-03 12:35] LABS: MANUAL DIFF FLAG NO
[2022-09-03 13:10] LABS: Basophils Percent Auto 0.5 % (0-2); Eosinophils Absolute Auto 0.1 X10*3/uL (0.0-0.4); Eosinophils Percent Auto 1.4 % (0-4); Hematocrit 46.5 % (37.0-47.0); Hemoglobin 15.6 g/dl (12.0-16.0); Imm Gran Abs Auto 0.02 X10*3/uL (0.00-0.03); Imm Gran Pct Auto 0.2 % (0.0-0.4); Lymphocytes Absolute Auto 1.7 X10*3/uL (1.2-4.9); Mean Corpuscular HGB Conc 33.5 g/dl (31.0-35.0); Mean Corpuscular Hemoglobin 30.8 pg (27.0-33.0); Mean Corpuscular Volume 91.7 fL (80.0-98.0); Mean Platelet Volume 9.7 fL (9.4-12.3); Monocytes Absolute Auto 0.6 X10*3/uL (0.1-1.2); Monocytes Percent Auto 7.1 % (2-11); Neutrophils Absolute Auto 5.9 x10*3/uL (2.0-8.3); Neutrophils Percent Auto 70.8 % (45-73); Platelet Count 320 X10*3/uL (160-400); Red Blood Count 5.07 X10*6/uL (4.20-5.50); Red Cell Distribution Width 12.5 % (11.0-16.0); White Blood Count 8.4 X10*3/uL (4.8-10.8)
[2022-09-03 13:57] LABS: Erythrocyte Sedimentation Rate 3 MM/HR (0-20)
[2022-09-03 13:58] LABS: Alanine Aminotransferase 72 U/L (0-31); Albumin Level 4.4 g/dL (3.5-5.0); Alkaline Phosphatase 74 U/L (39-117); Anion Gap 10 (12-20); Aspartate Amino Transferase 42 U/L (5-31); Bilirubin Direct 0.5 mg/dL (0.0-0.5); Bilirubin Total 2.1 mg/dL (0.0-1.0); Blood Urea Nitrogen 16 mg/dL (9-16); Calcium 9.6 mg/dL (8.4-10.2); Carbon Dioxide 32 mmol/L (22-29); Chloride 107 mmol/L (96-108); Estimated Glomerular Filt Rate > 60; Glucose Random 102 mg/dL (60-115); Sodium 144 mmol/L (135-145); Total Protein 7.2 g/dL (6.5-8.0)
[2022-09-10 08:02] LABS: Angiotensin Converting Enzyme 25.9 U/L (9-67)
== END 2022-09-03 11:30 | disposition home or self-care (01) ==
LOC: HO.LAB 11:29
PROVIDERS: PCP Pediatrics; Visit Provider Hospitalist
DX: D86.9 Sarcoidosis, unspecified (principal); K21.00 Gastro-esophageal reflux disease with esophagitis, without bleeding; R74.01 Elevation of levels of liver transaminase levels; D86.85 Sarcoid myocarditis
CPT/HCPCS: 36415; 80048; 80076; 82164; 85025; 85652; 99212

== ENCOUNTER 2022-09-18 10:20 | Outpatient (REF) | payer OTHER, SELFPAY | END 2022-09-18 10:21 | disposition home or self-care (01) | LOC: HO.MDS 10:20 | PROVIDERS: Visit Provider Hospitalist | DX: D86.85 Sarcoid myocarditis (principal) | CPT/HCPCS: 96413; 96415; J1745 ==

== ENCOUNTER 2022-10-17 10:08 | Outpatient (REF) | payer OTHER, SELFPAY | END 2022-10-17 10:09 | disposition home or self-care (01) | LOC: HO.MDS 10:08 | PROVIDERS: Visit Provider Hospitalist | DX: D86.85 Sarcoid myocarditis (principal) | CPT/HCPCS: 96413; J1745 ==

== ENCOUNTER 2022-11-14 10:30 | Outpatient (REF) | payer OTHER, SELFPAY | END 2022-11-14 10:31 | disposition home or self-care (01) | LOC: HO.MDS 10:30 | PROVIDERS: Visit Provider Hospitalist | DX: D86.9 Sarcoidosis, unspecified (principal) | CPT/HCPCS: 96365; 96366; J1745 ==

== ENCOUNTER 2022-12-12 10:25 | Outpatient (REF) | payer OTHER, SELFPAY ==
[2022-12-15 16:44] LABS: TS Negative Control Passed; TS Panel A 0; TS Panel B 0; TS Positive Control Passed; TSpotTB Negative (Negative)
== END 2022-12-12 10:26 | disposition home or self-care (01) ==
LOC: HO.MDS 10:25
PROVIDERS: Visit Provider Hospitalist
DX: D86.85 Sarcoid myocarditis (principal)
CPT/HCPCS: 36415; 86481; 96413; 96415; J1745

== ENCOUNTER 2022-12-23 14:26 | Outpatient (REF) | payer OTHER, SELFPAY ==
[2022-12-23 15:41] LABS: Basophils Percent Auto 0.5 % (0-2); Eosinophils Absolute Auto 0.1 X10*3/uL (0.0-0.4); Eosinophils Percent Auto 1.6 % (0-4); Hematocrit 39.2 % (37.0-47.0); Hemoglobin 13.3 g/dl (12.0-16.0); Imm Gran Abs Auto 0.02 X10*3/uL (0.00-0.03); Imm Gran Pct Auto 0.3 % (0.0-0.4); Lymphocytes Absolute Auto 2.2 X10*3/uL (1.2-4.9); Lymphocytes Percent Auto 28.3 % (20-40); MANUAL DIFF FLAG SCAN; Mean Corpuscular HGB Conc 33.9 g/dl (31.0-35.0); Mean Corpuscular Hemoglobin 29.8 pg (27.0-33.0); Mean Corpuscular Volume 87.9 fL (80.0-98.0); Mean Platelet Volume 10.5 fL (9.4-12.3); Monocytes Percent Auto 13.5 % (2-11); Neutrophils Absolute Auto 4.3 x10*3/uL (2.0-8.3); Neutrophils Percent Auto 55.8 % (45-73); Red Blood Count 4.46 X10*6/uL (4.20-5.50); Red Cell Distribution Width 12.7 % (11.0-16.0); SCAN SMEAR FLAG 1; White Blood Count 7.7 X10*3/uL (4.8-10.8)
[2022-12-23 16:32] LABS: Alanine Aminotransferase 80 U/L (0-31); Albumin Level 3.8 g/dL (3.5-5.0); Alkaline Phosphatase 156 U/L (39-117); Anion Gap 11 (12-20); Aspartate Amino Transferase 40 U/L (5-31); Bilirubin Direct 0.3 mg/dL (0.0-0.5); Bilirubin Total 0.8 mg/dL (0.0-1.0); Blood Urea Nitrogen 10 mg/dL (9-16); Carbon Dioxide 29 mmol/L (22-29); Chloride 103 mmol/L (96-108); Estimated Glomerular Filt Rate > 60; Glucose Random 89 mg/dL (60-115); Sodium 140 mmol/L (135-145)
[2022-12-23 21:56] LABS: SLIDE REVIEW VERIFIED
[2022-12-25 20:38] LABS: TS Negative Control Passed; TS Panel A 0; TS Panel B 0; TS Positive Control Passed; TSpotTB Negative (Negative)
== END 2022-12-23 14:27 | disposition home or self-care (01) ==
LOC: HO.LAB 14:26
PROVIDERS: PCP Pediatrics; Visit Provider Hospitalist
DX: Z11.1 Encounter for screening for respiratory tuberculosis (principal); D86.85 Sarcoid myocarditis; R74.01 Elevation of levels of liver transaminase levels
CPT/HCPCS: 36415; 80048; 80076; 85025; 86481

== ENCOUNTER 2023-01-09 10:11 | Outpatient (REF) | payer OTHER, SELFPAY | END 2023-01-09 10:12 | disposition home or self-care (01) | LOC: HO.MDS 10:11 | PROVIDERS: Visit Provider Hospitalist | DX: D86.85 Sarcoid myocarditis (principal) | CPT/HCPCS: 96365; 96366; J1745 ==

== ENCOUNTER 2023-02-10 10:04 | Outpatient (REF) | payer OTHER, SELFPAY | END 2023-02-10 10:05 | disposition home or self-care (01) | LOC: HO.MDS 10:04 | PROVIDERS: Visit Provider Hospitalist | DX: D86.85 Sarcoid myocarditis (principal) | CPT/HCPCS: 96365; 96366; J1745 ==

== ENCOUNTER 2023-03-10 11:34 | Outpatient (REF) | payer OTHER, SELFPAY | END 2023-03-10 11:35 | disposition home or self-care (01) | LOC: HO.MDS 11:34 | PROVIDERS: Visit Provider Hospitalist | DX: D86.85 Sarcoid myocarditis (principal) | CPT/HCPCS: 96365; 96366; J1745 ==

== ENCOUNTER 2023-03-17 11:02 | Outpatient (AMB) | payer OTHER, SELFPAY ==
--- NOTE | 2023-03-17 11:09 | MHC.OFFVIS ---
Intake Vital Signs 03/17/23 11:12 Height 5 ft 2 in Weight 140 lb BMI 25.6 Pulse 67 Pulse Source Pulse Oximeter Pulse Oximetry (%) 97 Oxygen Delivery Method Room Air Intake Visit Reasons: cardiac sarcoidosis Planning Consultant Required: No Allergies Penicillin Allergy (Mild, Uncoded 03/17/23 11:13) Rash Sulfa Drugs Allergy (Mild, Uncoded 03/17/23 11:13) Rash HPI HPI Comments History of Present Illness Details The patient is a 62-year-old woman with a known history of lymphadenopathy and cardiac sarcoidosis and obstructive sleep apnea on CPAP.. It was complicated by cardiac arrhythmia in a decreased EF require an ICD. she has been cortical steroid in addition to high doses of methotrexate with persistent symptoms of dyspnea. therefore, she had a repeat cardiac PET demonstrating still moderate amount of active sarcoid activity. the patient had been referred to the [facility] sarcoid clinic. It was their recommendation in addition to my for her to start his TNF inhibitor, Remicade. 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 However, after an extensive prior approval process her medical insurance for denied the medication that the patient needs. I did reach out to the appeals office of her medical insurance to start an appeal. in the meantime the patient continues using her CPAP therapy. The CPAP therapy continues to be affecting beneficial. She does use it for more than 4 hours a night. 03/14/2020 the patient is here for pulmonary follow-up visit. She continues to be symptomatic with significant dyspnea on exertion moderate severity. Also complains of fatigue and also body aches. She has recently started on the Remicade and continued on the methotrexate full dose. She has not noticed any significant improvement although it is still early. Based on her PET scan she still had active cardiac sarcoidosis. The patient did undergo a 6 minutes walk test demonstrating desaturations to 88% although briefly. This is still concern. Therefore, we need to address the question of any worsening parenchymal lung disease or any worsening pulmonary vascular disease. The patient needs to follow-up with sarcoid clinic in [place] and also needs to follow-up with her injection mold technician. In the meantime she is struggling with the fact that her disability was discontinued. I did provide her appeal letter and she will provide her own appear letter as well. At this point based on the patient's condition I do not recommend the patient goes back to work based on the fact that she is still very symptomatic. She also continues to use her CPAP the CPAP therapy continues to be affecting beneficial. She uses it more than 4 hours a night. The next step is for her to call [place] and will have to further decide how to adjust her methotrexate while on the Remicade. Based on her hypoxia she is also undergo undergo blood work. We are going to check a D-dimer along with the blood work. The echocardiogram she needs to get scheduled through her injection mold technician. 05/15/2022 the patient is here for a pulmonary follow-up visit. Overall the patient is doing well. Denies any nausea or any abdominal discomfort. Denies any jaundice. She did have slight elevation her total bili during her last blood work. Therefore she did undergo an ultrasound of the abdomen demonstrating some fatty infiltration. Will have her repeat her blood work if her LFTs are still significantly elevated then will refer her to GI. She did follow-up in [place] with the sarcoid Clinic. She continues on the Remicade every 4 weeks and also continues with 3 tablets of methotrexate. This appears to be improving her respiratory status and cardiovascular status as well. She continues her inhalers. The patient has been using her CPAP. CPAP therapy continues to be affecting beneficial. She needs to make sure she uses it 4 hours a night. She is getting supplies from her [employer]. She is planning a trip to [place] sometime in August. We will evaluate her prior to that trip to make sure that she has all her medications and to make sure she is able to travel. The patient also needs to make sure she gets her vaccines for traveling abroad to [place] per otherwise patient is without any other complaints. 09/03/2022 the patient is here for pulmonary follow-up visit. He continues to do well. She has a planned trip to [place]. I will make sure that she has all medications available. She did follow-up in the sarcoid Clinic in [place]. At this point will that she is going to continue on the Remicade every 4 weeks until the end of the year and then she is going to be slowly taper down to every 5 weeks and then as such. The methotrexate still at 3 tablets or 7.5 mg weekly which she seems to be tolerating. Will go ahead and recheck her LFTs to make sure that her liver functions continue to improve. She did have an episode of palpitations and tremors some weeks ago. She did follow-up with Cardiology because she did have a tachyarrhythmia. Although her defibrillator did not sense it. She did follow-up with cardiology and adjustments were made. The patient has not had any episodes like that since then. 03/17/2023 the patient is here for pulmonary follow-up visit. She had a great time in after cough for her mission trip. She was able to continue her medications. The patient still complains of dyspnea on exertion and just fatigue. But overall feels like she is at her baseline. We did talk about her abnormal laboratories including elevated LFTs. I will go ahead and refer her to GI although if her LFTs continue elevated or worsen will consider decreasing or stopping the methotrexate 4. At time. The patient also continues on Remicade every 4 weeks which appears to be responding well to therapy. The patient has not been using her CPAP. She does have some daytime drowsiness but not significant enough to go back on the CPAP. She felt like she was getting choked up with CPAP so therefore she stopped a long time ago. Therefore, will monitor him closely. We talked about positional therapy. Will consider repeating the sleep study in the future possibly next year. Will follow-up in 3-4 months. Otherwise if the patient has any issues or concerns she will call the office for an earlier assessment. [facility] Medical History (System 02/04/23 @ 13:19 by Renetta Leary) GERD (gastroesophageal reflux disease) COVID-19 Depressive disorder due to separate medical condition ELMER on CPAP Cardiac sarcoidosis Sarcoidosis Family History (System 02/04/23 @ 13:19 by Renetta Leary) Daughter No problems noted. (System 02/04/23 @ 13:19 by Renetta Leary) Patient Tobacco Use Status: Never used Tobacco Review of Systems Const Denies body aches, Denies fatigue, Denies headache(s), Denies lethargy, Denies malaise and Denies night sweats ENT Denies change in voice, Denies headache(s), Denies lip swelling, Denies mouth pain, Denies nasal congestion, Denies nasal discharge and Denies tongue swelling Card Denies chest pain and Reports dyspnea on exertion Resp Reports cough and Reports dyspnea on exertion GI Denies abdominal pain, Reports dyspepsia and Denies heartburn Musc Denies myalgias Neuro Denies Neuro-related abnormal movements and Denies headache(s) Psych Reports no additional complaints Endo Denies fatigue Joey/Lymph Denies easy bleeding and Denies lymphadenopathy Aller/Immun Denies lip swelling and Denies tongue swelling Physical Exam Vital Signs: Last Vital Signs Pulse 67 03/17/23 11:12 Pulse Ox 97 03/17/23 11:12 Oxygen Delivery Method Room Air 03/17/23 11:12 BMI result Body Mass Index 25.6 Const General: alert HEENT Face and sinus: Yes other (cold sores around lips) Throat: Yes posterior oropharynx abnormal (pharyngitis) Neck Neck: Yes normal visual inspection, Yes full ROM and Yes no lymphadenopathy Chest Chest palpation & inspection: normal inspection of the chest Resp Auscultation: clear to auscultation bilaterally, no crackles, no rales and no wheezes Cardio Rate: regular rate Rhythm: regular rhythm Heart sounds: S1 normal heart sound present and S2 normal heart sound present GI Palpation (GI): Soft to palpation and nontender Auscultation: normal bowel sounds Skin General skin exam: rashes and/or lesions noted Office Procedures Flu Questionnaire Does the patient have a severe egg allergy?: No Does the patient have severe life threatening allergies?: No Does the patient have a fever or illness today?: No Has the patient ever had Guillain-[place] Syndrome?: No Has the patient ever had any past reaction to a flu shot?: No Immunizations flu vacc [id number] 6mos up(PF) 60 mcg(15 mcgx4)/0.5 mL IM syringe Performing Provider: Anthony Daily MD Performing Location: [facility] [place] [facility] Administered by: Josi Colon LPN on 03/17/23 11:44 Dose Route Admin Location Dispensed Lot Number Expiration Date NDC Rf Microwave Engineer 0.5 mL IM Left Deltoid 0.5 mL [id number] 10/25/23 51666-257-75 [employer] VIS Given Date VIS Provided VIS Publication Date 03/17/23 Single Vaccine 20 Eligibility Eligibility Date Funding Source Not [facility] Eligible 03/17/23 Private Assessment & Plan Assessment & Plan (1) Sarcoidosis: Code(s): D86.9 - Sarcoidosis, unspecified (2) ELMER on CPAP: Code(s): G47.33 - Obstructive sleep apnea (adult) (pediatric); Z99.89 - Dependence on other enabling machines and devices (3) Cardiac sarcoidosis: Code(s): D86.85 - Sarcoid myocarditis (4) Transaminitis: Comment: better, US with fatty liver Code(s): R74.01 - Elevation of levels of liver transaminase levels Plan continue Remicade every 4 weeks continue methotrexate 3 tablets a week Continue Pepcid holding CPAP, positional therapy. May benefit from a repeat PSG in the future continue trazodone at night repeat blood work today Fluticasone nasal spray Breo daily MARCIA as needed GI eveal for elevated LFTs and abnormal US. We will repeat LFTs at this time. If worse, then my have to stop the MTX Follow-up in 4-6 months Orders: Orders Complete Blood Count Auto Diff Today D86.9 - Sarcoidosis, unspecified, R74.01 - Elevation of levels of liver transaminase levels Angiotensin Converting Enzyme Today D86.9 - Sarcoidosis, unspecified, R74.01 - Elevation of levels of liver transaminase levels Erythrocyte Sedimentation Rate Today D86.9 - Sarcoidosis, unspecified, R74.01 - Elevation of levels of liver transaminase levels Basic Metabolic Panel Today D86.9 - Sarcoidosis, unspecified, R74.01 - Elevation of levels of liver transaminase levels Liver Panel Today D86.9 - Sarcoidosis, unspecified, R74.01 - Elevation of levels of liver transaminase levels Influenza [id number] Immunization Today D86.85 - Sarcoid myocarditis Referrals Gastroenterology Referral R74.01 - Elevation of levels of liver transaminase levels Medications: New albuterol sulfate 90 mcg/actuation 2 puffs PO Q4H PRN 8.5 grams 11RF wheezing Refilled Breo Ellipta 200-25 mcg/dose (fluticasone furoate-vilanterol) 1 ea PO DAILY 60 ea 11RF NS J45.909 - Unspecified asthma, uncomplicated Coding Level of Care Code Est Pt Level 4 (13220) Diagnoses Sarcoidosis D86.9 ELMER on CPAP G47.33; Z99.89 Cardiac sarcoidosis D86.85 Transaminitis R74.01 Time Spent (min) 18
[2023-03-17 11:12] VITALS: PULSE 67; O2SAT 97; BMI 25.6
== END 2023-03-17 11:36 | disposition home or self-care (01) ==
PROVIDERS: PCP Pediatrics; Visit Provider Hospitalist
DX: D86.9 Sarcoidosis, unspecified (principal); G47.33 Obstructive sleep apnea (adult) (pediatric); Z99.89 Dependence on other enabling machines and devices; D86.85 Sarcoid myocarditis; R74.01 Elevation of levels of liver transaminase levels
CPT/HCPCS: 99214

== ENCOUNTER 2023-03-17 11:02 | Outpatient (REF) | payer OTHER, SELFPAY ==
[2023-03-17 11:52] LABS: MANUAL DIFF FLAG NO
[2023-03-17 12:13] LABS: Basophils Absolute Auto 0.1 X10*3/uL (0.0-0.2); Basophils Percent Auto 0.5 % (0-2); Eosinophils Absolute Auto 0.2 X10*3/uL (0.0-0.4); Eosinophils Percent Auto 1.4 % (0-4); Hematocrit 42.7 % (37.0-47.0); Hemoglobin 14.1 g/dl (12.0-16.0); Imm Gran Abs Auto 0.02 X10*3/uL (0.00-0.03); Imm Gran Pct Auto 0.2 % (0.0-0.4); Lymphocytes Absolute Auto 2.4 X10*3/uL (1.2-4.9); Lymphocytes Percent Auto 21.6 % (20-40); Mean Corpuscular Hemoglobin 29.1 pg (27.0-33.0); Mean Platelet Volume 9.7 fL (9.4-12.3); Monocytes Absolute Auto 0.7 X10*3/uL (0.1-1.2); Monocytes Percent Auto 6.5 % (2-11); Neutrophils Absolute Auto 7.7 x10*3/uL (2.0-8.3); Neutrophils Percent Auto 69.8 % (45-73); Platelet Count 322 X10*3/uL (160-400); Red Blood Count 4.85 X10*6/uL (4.20-5.50); Red Cell Distribution Width 12.4 % (11.0-16.0); White Blood Count 11.1 X10*3/uL (4.8-10.8)
[2023-03-17 12:44] LABS: Alanine Aminotransferase 13 U/L (0-31); Albumin Level 3.8 g/dL (3.5-5.0); Alkaline Phosphatase 74 U/L (39-117); Anion Gap 6 (12-20); Aspartate Amino Transferase 13 U/L (5-31); Bilirubin Direct 0.1 mg/dL (0.0-0.5); Bilirubin Total 0.5 mg/dL (0.0-1.0); Blood Urea Nitrogen 14 mg/dL (9-16); Carbon Dioxide 31 mmol/L (22-29); Chloride 105 mmol/L (96-108); Estimated Glomerular Filt Rate > 60; Glucose Random 87 mg/dL (60-115); Potassium 4.3 mmol/L (3.3-5.1); Sodium 138 mmol/L (135-145); Total Protein 7.3 g/dL (6.5-8.0)
[2023-03-17 12:55] LABS: Erythrocyte Sedimentation Rate 10 MM/HR (0-20)
[2023-03-22 07:39] LABS: Angiotensin Converting Enzyme 24 U/L (9-67)
== END 2023-03-17 11:03 | disposition home or self-care (01) ==
LOC: HO.LAB 11:02
PROVIDERS: PCP Pediatrics; Visit Provider Hospitalist
DX: D86.9 Sarcoidosis, unspecified (principal); R74.01 Elevation of levels of liver transaminase levels; G47.33 Obstructive sleep apnea (adult) (pediatric); D86.85 Sarcoid myocarditis; Z99.89 Dependence on other enabling machines and devices; Z23 Encounter for immunization
CPT/HCPCS: 36415; 80048; 80076; 82164; 85025; 85652; 90471; 90686; 99212

== ENCOUNTER 2023-04-10 08:17 | Outpatient (REF) | payer OTHER, SELFPAY | END 2023-04-10 08:18 | disposition home or self-care (01) | LOC: HO.MDS 08:17 | PROVIDERS: PCP Pediatrics; Visit Provider Hospitalist | DX: D86.85 Sarcoid myocarditis (principal) | CPT/HCPCS: 96365; 96366; J1745 ==

== ENCOUNTER 2023-05-12 10:27 | Outpatient (REF) | payer OTHER, SELFPAY | END 2023-05-12 10:28 | disposition home or self-care (01) | LOC: HO.MDS 10:27 | PROVIDERS: Visit Provider Hospitalist | DX: D86.85 Sarcoid myocarditis (principal) | CPT/HCPCS: 96365; 96366; J1745 ==

== ENCOUNTER 2023-06-11 09:30 | Outpatient (REF) | payer OTHER, SELFPAY | END 2023-06-11 09:31 | disposition home or self-care (01) | LOC: HO.MDS 09:30 | PROVIDERS: Visit Provider Hospitalist | DX: D86.85 Sarcoid myocarditis (principal) | CPT/HCPCS: 96365; 96366; J1745 ==

== ENCOUNTER 2023-06-17 10:50 | Outpatient (AMB) | payer OTHER, SELFPAY ==
[2023-06-17 10:55] VITALS: PULSE 78; O2SAT 97; BMI 27.1
--- NOTE | 2023-06-17 10:55 | A.OFFVIS_ITS ---
Intake Vital Signs 06/17/23 10:55 Height 5 ft 2 in Weight 148 lb BMI 27.1 Pulse 78 Pulse Source Pulse Oximeter Pulse Oximetry (%) 97 Oxygen Delivery Method Room Air Intake Visit Reasons: Cardiac Sarcoidosis Broadcast Journalist Required: No Allergies Penicillin Allergy (Mild, Uncoded 06/17/23 10:56) Rash Sulfa Drugs Allergy (Mild, Uncoded 06/17/23 10:56) Rash HPI HPI Comments History of Present Illness Details The patient is a 62-year-old woman with a known history of lymphadenopathy and cardiac sarcoidosis and obstructive sleep apnea on CPAP.. It was complicated by cardiac arrhythmia in a decreased EF require an ICD. she has been cortical steroid in addition to high doses of methotrexate with persistent symptoms of dyspnea. therefore, she had a repeat cardiac PET demonstrating still moderate amount of active sarcoid activity. the patient had been referred to the [facility] sarcoid clinic. It was their recommendation in addition to my for her to start his TNF inhibitor, Remicade. 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 However, after an extensive prior approval process her medical insurance for denied the medication that the patient needs. I did reach out to the appeals office of her medical insurance to start an appeal. in the meantime the patient continues using her CPAP therapy. The CPAP therapy continues to be affecting beneficial. She does use it for more than 4 hours a night. 03/14/2020 the patient is here for pulmonary follow-up visit. She continues to be symptomatic with significant dyspnea on exertion moderate severity. Also complains of fatigue and also body aches. She has recently started on the Remicade and continued on the methotrexate full dose. She has not noticed any significant improvement although it is still early. Based on her PET scan she still had active cardiac sarcoidosis. The patient did undergo a 6 minutes walk test demonstrating desaturations to 88% although briefly. This is still concern. Therefore, we need to address the question of any worsening parenchymal lung disease or any worsening pulmonary vascular disease. The patient needs to follow-up with sarcoid clinic in [place] and also needs to follow-up with her transmission system operator. In the meantime she is struggling with the fact that her disability was discontinued. I did provide her appeal letter and she will provide her own appear letter as well. At this point based on the patient's condition I do not recommend the patient goes back to work based on the fact that she is still very symptomatic. She also continues to use her CPAP the CPAP therapy continues to be affecting beneficial. She uses it more than 4 hours a night. The next step is for her to call [place] and will have to further decide how to adjust her methotrexate while on the Remicade. Based on her hypoxia she is also undergo undergo blood work. We are going to check a D-dimer along with the blood work. The echocardiogram she needs to get scheduled through her transmission system operator. 05/15/2022 the patient is here for a pulmonary follow-up visit. Overall the patient is doing well. Denies any nausea or any abdominal discomfort. Denies any jaundice. She did have slight elevation her total bili during her last blood work. Therefore she did undergo an ultrasound of the abdomen demonstrating some fatty infiltration. Will have her repeat her blood work if her LFTs are still significantly elevated then will refer her to GI. She did follow-up in [place] with the sarcoid Clinic. She continues on the Remicade every 4 weeks and also continues with 3 tablets of methotrexate. This appears to be improving her respiratory status and cardiovascular status as well. She continues her inhalers. The patient has been using her CPAP. CPAP therapy continues to be affecting beneficial. She needs to make sure she uses it 4 hours a night. She is getting supplies from her [employer]. She is planning a trip to [place] sometime in August. We will evaluate her prior to that trip to make sure that she has all her medications and to make sure she is able to travel. The patient also needs to make sure she gets her vaccines for traveling abroad to [place] per otherwise patient is without any other complaints. 09/03/2022 the patient is here for pulmonary follow-up visit. He continues to do well. She has a planned trip to [place]. I will make sure that she has all medications available. She did follow-up in the sarcoid Clinic in [place]. At this point will that she is going to continue on the Remicade every 4 weeks until the end of the year and then she is going to be slowly taper down to every 5 weeks and then as such. The methotrexate still at 3 tablets or 7.5 mg weekly which she seems to be tolerating. Will go ahead and recheck her LFTs to make sure that her liver functions continue to improve. She did have an episode of palpitations and tremors some weeks ago. She did follow-up with Cardiology because she did have a tachyarrhythmia. Although her defibrillator did not sense it. She did follow-up with cardiology and adjustments were made. The patient has not had any episodes like that since then. 03/17/2023 the patient is here for pulmonary follow-up visit. She had a great time in after cough for her mission trip. She was able to continue her medications. The patient still complains of dyspnea on exertion and just fatigue. But overall feels like she is at her baseline. We did talk about her abnormal laboratories including elevated LFTs. I will go ahead and refer her to GI although if her LFTs continue elevated or worsen will consider decreasing or stopping the methotrexate 4. At time. The patient also continues on Remicade every 4 weeks which appears to be responding well to therapy. The patient has not been using her CPAP. She does have some daytime drowsiness but not significant enough to go back on the CPAP. She felt like she was getting choked up with CPAP so therefore she stopped a long time ago. Therefore, will monitor him closely. We talked about positional therapy. Will consider repeating the sleep study in the future possibly next year. Will follow-up in 3-4 months. Otherwise if the patient has any issues or concerns she will call the office for an earlier assessment. 06/18/2023 the patient is here for a pulmonary follow-up visit. The patient has been doing well. The patient states that she does not always take the methotrexate because she forgets. Also makes it feel unwell. It is reassuring that her LFTs are better this time. She is responding well to the Remicade. She will be following up at [facility] in the next few months. At this point the patient had been doing well would can see if we can just wean her off the methotrexate specially if she has not taking it as prescribed. We can wean slowly off if the patient feels that she is developing any worsening symptoms she can always call the office we can reassess. Ultimately we try to get her off the immunomodulator specially since his small dose and she can get really tested when she goes to [place] in the next few months. Also, the patient has been describing episodes of palpitations. She did follow-up with a transmission system operator and she did have her defibrillator downloaded but no significant arrhythmias noted per the patient. The patient has not been using her CPAP. I did explain to her that sleep apnea if untreated can result in increased palpitations and tachycardia. Therefore she is going to start using the CPAP at this time. [facility] Medical History (System 02/04/23 @ 13:19 by Renetta Leary) GERD (gastroesophageal reflux disease) COVID-19 Depressive disorder due to separate medical condition ELMER on CPAP Cardiac sarcoidosis Sarcoidosis Family History (System 02/04/23 @ 13:19 by Renetta Leary) Daughter No problems noted. Social History (System 02/04/23 @ 13:19 by Renetta Leary) Patient Tobacco Use Status: Never used Tobacco Review of Systems Const Denies body aches, Denies fatigue, Denies headache(s), Denies lethargy, Denies malaise and Denies night sweats ENT Denies change in voice, Denies headache(s), Denies lip swelling, Denies mouth pain, Denies nasal congestion, Denies nasal discharge and Denies tongue swelling Card Denies chest pain and Reports dyspnea on exertion Resp Reports cough and Reports dyspnea on exertion GI Denies abdominal pain, Reports dyspepsia and Denies heartburn Musc Denies myalgias Neuro Denies Neuro-related abnormal movements and Denies headache(s) Psych Reports no additional complaints Endo Denies fatigue Joey/Lymph Denies easy bleeding and Denies lymphadenopathy Aller/Immun Denies lip swelling and Denies tongue swelling Physical Exam Vital Signs: Last Vital Signs Pulse 78 06/17/23 10:55 Pulse Ox 97 06/17/23 10:55 Oxygen Delivery Method Room Air 06/17/23 10:55 BMI result Body Mass Index 27.1 Const General: alert HEENT Face and sinus: Yes other (cold sores around lips) Throat: Yes posterior oropharynx abnormal (pharyngitis) Neck Neck: Yes normal visual inspection, Yes full ROM and Yes no lymphadenopathy Chest Chest palpation & inspection: normal inspection of the chest Resp Auscultation: clear to auscultation bilaterally, no crackles, no rales and no wheezes Cardio Rate: regular rate Rhythm: regular rhythm Heart sounds: S1 normal heart sound present and S2 normal heart sound present GI Palpation (GI): Soft to palpation and nontender Auscultation: normal bowel sounds Skin General skin exam: rashes and/or lesions noted Assessment & Plan Assessment & Plan (1) Sarcoidosis: Code(s): D86.9 - Sarcoidosis, unspecified (2) ELMER on CPAP: Code(s): G47.33 - Obstructive sleep apnea (adult) (pediatric); Z99.89 - Dependence on other enabling machines and devices (3) Cardiac sarcoidosis: Code(s): D86.85 - Sarcoid myocarditis (4) Transaminitis: Comment: better, US with fatty liver Code(s): R74.01 - Elevation of levels of liver transaminase levels Plan continue Remicade every 4 weeks stop methotrexate 3 tablets a week, will taper Continue Pepcid continue chlorpheniramine maleate restart APAP, adjusted pressures 4-8 continue trazodone at night Fluticasone nasal spray Breo daily MARCIA as needed Follow-up in 4-6 months Coding Level of Care Code Est Pt Level 4 (88699) Diagnoses Sarcoidosis D86.9 ELMER on CPAP G47.33; Z99.89 Cardiac sarcoidosis D86.85 Transaminitis R74.01 Time Spent (min) 17
== END 2023-06-17 11:17 | disposition home or self-care (01) ==
PROVIDERS: PCP Pediatrics; Visit Provider Hospitalist
DX: D86.9 Sarcoidosis, unspecified (principal); G47.33 Obstructive sleep apnea (adult) (pediatric); Z99.89 Dependence on other enabling machines and devices; D86.85 Sarcoid myocarditis; R74.01 Elevation of levels of liver transaminase levels
CPT/HCPCS: 99214

== ENCOUNTER → 2023-06-17 10:50 | Outpatient (BNVA) | payer OTHER, SELFPAY | PROVIDERS: PCP Pediatrics; Visit Provider Hospitalist | DX: D86.9 Sarcoidosis, unspecified (principal); R74.01 Elevation of levels of liver transaminase levels; G47.33 Obstructive sleep apnea (adult) (pediatric); D86.85 Sarcoid myocarditis; Z99.89 Dependence on other enabling machines and devices | CPT/HCPCS: 99212 ==

== ENCOUNTER 2023-07-06 09:40 | Outpatient (REF) | payer OTHER, SELFPAY ==
[2023-07-06 12:17] LABS: Estimated Average Glucose 97 mg/dL
[2023-07-06 12:42] LABS: Alanine Aminotransferase 29 U/L (0-31); Albumin Level 4.2 g/dL (3.5-5.0); Alkaline Phosphatase 74 U/L (39-117); Aspartate Amino Transferase 20 U/L (5-31); Bilirubin Direct 0.2 mg/dL (0.0-0.5); Bilirubin Total 0.5 mg/dL (0.0-1.0); Cholesterol 206 mg/dL (<200); HDL Cholesterol 57 mg/dL (>40); LDL Cholesterol Calculated 128 mg/dL (<100); Total Protein 7.3 g/dL (6.5-8.0); Triglycerides 107 mg/dL (<150)
[2023-07-07 05:30] LABS: Hepatitis A Antibody IgG Nonreactive (Nonreactive); ~Hepatitis A Antibody IgG 0.33 S/CO (0.00-0.99)
[2023-07-07 05:43] LABS: HBS Num1 0.07 mIU/mL (0-7.99); HBc Num1 0.07 S/CO (0.00-0.79); HBsAGNum1 0.35 S/CO (0.00-0.99); Hepatitis B Core Antibody Nonreactive (Nonreactive); Hepatitis B Surface Antigen Negative (Negative); ~HepC Num1 0.09 S/CO (0.00-0.79); ~Hepatitis B Surface Antibody NONREACTIVE (Nonreactive); ~Hepatitis C Antibody Nonreactive (Nonreactive)
== END 2023-07-06 09:41 | disposition home or self-care (01) ==
LOC: HO.LAB 09:40
PROVIDERS: PCP Pediatrics; Visit Provider Internal Medicine
DX: R74.01 Elevation of levels of liver transaminase levels (principal); D86.9 Sarcoidosis, unspecified; K57.30 Diverticulosis of large intestine without perforation or abscess without bleeding
CPT/HCPCS: 36415; 80061; 80076; 83036; 86704; 86706; 86708; 86803; 87340; 99202

== ENCOUNTER 2023-07-06 09:40 | Outpatient (AMB) | payer OTHER, SELFPAY ==
[2023-07-06 09:44] VITALS: BP 122/74; BMI 27.9
--- NOTE | 2023-07-06 09:44 | A.OFFVIS_ITS ---
Intake Vital Signs 07/06/23 09:44 Height 5 ft 2 in Weight 152 lb 8.958 oz BMI 27.9 BP 122/74 Blood Pressure Location Rt brachial Position Sitting Intake Visit Reasons: LFT's Intake Note: Pt presents to the office today for a new patient for LFTs. Pt states she was referred to GI from Dr. Daily. She states she is feeling well at the moment and denies any N/V/D. Allergies Penicillin Allergy (Mild, Uncoded 07/06/23 09:45) Rash Sulfa Drugs Allergy (Mild, Uncoded 07/06/23 09:45) Rash HPI HPI Comments History of Present Illness Details This is a 63y.o F with PMH of pulm and cardiac sarcoidosis with NICM s/p AICD placement currently on IFX and MTX for therapy, hx of complicated diverticulitis with partial colon resection, who is here for elevated LFTs. Pt herself has no gastrointestinal complaints including abd pain, distention, rash, pruritus. Labs show predominant elevation of transaminases with ALT>AST with two elevated ALP values in 2019 and then again in Feb 2023 both times <3UNL. Pt does not drink. Med hx as below. No fam hx of liver diseases in FDRs. Metabolic risk factors include mildly elevated BMI to 27, otherise not diabetic or HTN, lipids normal per her report. Imaging includes US abd as well as [facility] CT[facility]) which suggest hepatic steatosis. PFSH Medical History GERD (gastroesophageal reflux disease) COVID-19 Depressive disorder due to separate medical condition ELMER on CPAP Cardiac sarcoidosis Sarcoidosis Surgical History H/O endoscopy Hx of colonoscopy Family History Daughter No problems noted. Social History Alcohol intake: current Alcohol intake frequency: a few times a month Patient Tobacco Use Status: Never used Tobacco Review of Systems Const All systems reviewed & are unremarkable except as noted in HPI and below Physical Exam Vital Signs: Last Vital Signs BP 122/74 07/06/23 09:44 BMI result Body Mass Index 27.9 Gen appear: NAD HEENT: nonicteric, Abd: soft, nontender, Ext: no peripheral edema Neuro: A/Ox3, noted to move all extremities spontaneously Psych: interacting appropriately Assessment & Plan Assessment & Plan (1) Transaminitis: Code(s): R74.01 - Elevation of levels of liver transaminase levels (2) Sarcoidosis: Code(s): D86.9 - Sarcoidosis, unspecified (3) Diverticula, colon: Code(s): K57.30 - Diverticulosis of large intestine without perforation or abscess without bleeding Plan Reviewed with the pt that based on clinical data, assessment most consistent with NAFLD/VAUGHAN with risk factors including prolonged use of high dose steroids and methotrexate. Fib 4 0.69 consistent with no advanced fibrosis. Low clinical suspicion for hepatic sarcoid at this time as that is typically associated with cholestatic pattern and imaging may show granuloams. - Recheck LFTs in 3 months In terms of her diverticulosis hx, will obtain records from [facility] to reconcil e on our end. Pt reports getting a follow up colo but is unsure of recall interval. - Records release signed today. Follow up in 3 months Orders: Orders Hemoglobin A1c Today R74.01 - Elevation of levels of liver transaminase levels Hepatitis A IgG Today R74.01 - Elevation of levels of liver transaminase levels Hepatitis B Core Antibody Today R74.01 - Elevation of levels of liver transaminase levels Hepatitis B Surface Antibody Today R74.01 - Elevation of levels of liver transaminase levels Hepatitis C Antibody Today R74.01 - Elevation of levels of liver transaminase levels Liver Panel Today R74.01 - Elevation of levels of liver transaminase levels Lipid Panel Today R74.01 - Elevation of levels of liver transaminase levels Hepatitis B Surface Antigen Today R74.01 - Elevation of levels of liver transaminase levels Coding Level of Care Code New Pt Level 4 (60991) Diagnoses Transaminitis R74.01 Sarcoidosis D86.9 Diverticula, colon K57.30
== END 2023-07-06 10:48 | disposition home or self-care (01) ==
PROVIDERS: PCP Pediatrics; Visit Provider Internal Medicine
DX: R74.01 Elevation of levels of liver transaminase levels (principal); D86.9 Sarcoidosis, unspecified; K57.30 Diverticulosis of large intestine without perforation or abscess without bleeding
CPT/HCPCS: 99204

== ENCOUNTER 2023-07-09 09:46 | Outpatient (REF) | payer OTHER, SELFPAY ==
[2023-07-09] VITALS (7 sets, daily range): BP systolic 113–122; BP diastolic 58–84; PULSE 71–85; RESP 18–20; TEMP 36.3
== END 2023-07-09 09:47 | disposition home or self-care (01) ==
LOC: HO.MDS 09:46
PROVIDERS: Visit Provider Hospitalist
DX: D86.85 Sarcoid myocarditis (principal)
CPT/HCPCS: 96365; 96366; J1745

== ENCOUNTER 2023-10-05 09:35 | Outpatient (AMB) | payer OTHER, SELFPAY ==
--- NOTE | 2023-10-05 09:38 | A.OFFVIS_ITS ---
Vital Signs 10/05/23 09:45 Height 5 ft 2 in Weight 153 lb 7.068 oz BMI 28.1 BP 114/70 Blood Pressure Location Lt brachial Position Sitting Pulse 66 Pulse Source Pulse Oximeter Pulse Oximetry (%) 95 Oxygen Delivery Method Room Air Intake Visit Reasons: 3 month follow up Intake Note: Belkis presents in office today for a scheduled 3 mos FUV. CC; Pt reports that any treatments are currently going as expected. Pt denies any significant sx or concerns at this time. Addiction Therapist Required: No Allergies Penicillin Allergy (Mild, Uncoded 07/06/23 09:45) Rash Sulfa Drugs Allergy (Mild, Uncoded 07/06/23 09:45) Rash HPI Comments Details: This is a 63y.o F with PMH of pulm and cardiac sarcoidosis with NICM s/p AICD placement currently on IFX and MTX for therapy, hx of complicated diverticulitis with partial colon resection, who is here for elevated LFTs. 07/06/2023: Pt herself has no gastrointestinal complaints including abd pain, distention, rash, pruritus. Labs show predominant elevation of transaminases with ALT>AST with two elevated ALP values in 2019 and then again in Feb 2023 both times <3UNL. Pt does not drink. Med hx as below. No fam hx of liver diseases in FDRs. Metabolic risk factors include mildly elevated BMI to 27, otherise not diabetic or HTN, lipids normal per her report. Imaging includes US abd as well as prior CTs ([facility]) which suggest hepatic steatosis. 10/05/23: Here for follow up. Had one more flare of diverticulitis last month but was mild and did not have to seek medical attention. Last colo per [facility] records in 2018 (Dr Burnett) - diverticulosis. To recall, since then pt has had at least 3 flares. Otherwise, doing well. No other GI issues. Labs reviewed, LFTs remain normal. PFSH Medical History GERD (gastroesophageal reflux disease) COVID-19 Depressive disorder due to separate medical condition ELMER on CPAP Cardiac sarcoidosis Sarcoidosis Surgical History H/O endoscopy Hx of colonoscopy Family History Daughter No problems noted. Social History Alcohol intake: current Alcohol intake frequency: a few times a month Patient Tobacco Use Status: Never used Tobacco Review of Systems Const All systems reviewed & are unremarkable except as noted in HPI and below Physical Exam Vital Signs: Last Vital Signs Pulse 66 10/05/23 09:45 BP 114/70 10/05/23 09:45 Pulse Ox 95 10/05/23 09:45 Oxygen Delivery Method Room Air 10/05/23 09:45 BMI result Body Mass Index 28.1 No apparent distress Nonicteric Abdomen soft, nondistended Alert and oriented x3, normal gait Assessment & Plan Assessment & Plan (1) Diverticula, colon: Code(s): K57.30 - Diverticulosis of large intestine without perforation or abscess without bleeding Category: Medical Plan #Recurrent diverticulitis Has had 2 flares in the last 6 months. Late 2022 - needed to get [facility]. Most recent one in August 2023 was mild and managed at home. Previous to this, pt would have one flare in 3-4 years. Reviewed with the pt that if she has another flare this calendar year low threshold to repeat a colo as did not used to get frequent flares before. Otherwise will book her for a routine colo in 2024 i.e 7y from last one. She was also encouraged to include fiber supplementation and avoid constipation. #Elevated transaminases - resolved. Follow up in a year to book colo, sooner if needed as per above Coding Level of Care Code Est Pt Level 4 (82519) Diagnoses Diverticula, colon K57.30
[2023-10-05 09:45] VITALS: BP 114/70; PULSE 66; O2SAT 95; BMI 28.1
== END 2023-10-05 10:12 | disposition home or self-care (01) ==
PROVIDERS: PCP Pediatrics; Visit Provider Internal Medicine
DX: K57.30 Diverticulosis of large intestine without perforation or abscess without bleeding (principal)
CPT/HCPCS: 99214

== ENCOUNTER → 2023-10-05 09:35 | Outpatient (BNVA) | payer OTHER, SELFPAY | PROVIDERS: PCP Pediatrics; Visit Provider Internal Medicine | DX: K57.30 Diverticulosis of large intestine without perforation or abscess without bleeding (principal) | CPT/HCPCS: 99212 ==

== ENCOUNTER 2024-01-04 09:20 | Outpatient (AMB) | payer OTHER, SELFPAY ==
[2024-01-04 09:23] VITALS: BP 124/78; PULSE 63; O2SAT 98; BMI 29.2
--- NOTE | 2024-01-04 09:23 | MHC.OFFVIS ---
Vital Signs 01/04/24 09:23 Height 5 ft 1 in Weight 154 lb 5.177 oz BMI 29.2 BP 124/78 Blood Pressure Location Lt brachial Position Sitting Pulse 63 Pulse Source Pulse Oximeter Pulse Oximetry (%) 98 Oxygen Delivery Method Room Air Intake Visit Reasons: Asthma [employer] Required: No Allergies Penicillin Allergy (Mild, Uncoded 01/04/24 09:25) Rash Sulfa Drugs Allergy (Mild, Uncoded 01/04/24 09:25) Rash HPI Comments Details: The patient is a 63-year-old woman with a known history of lymphadenopathy and cardiac sarcoidosis and obstructive sleep apnea on CPAP.. It was complicated by cardiac arrhythmia in a decreased EF require an ICD. she has been cortical steroid in addition to high doses of methotrexate with persistent symptoms of dyspnea. therefore, she had a repeat cardiac PET demonstrating still moderate amount of active sarcoid activity. the patient had been referred to the [facility] sarcoid clinic. It was their recommendation in addition to my for her to start his TNF inhibitor, Remicade. 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 However, after an extensive prior approval process her medical insurance for denied the medication that the patient needs. I did reach out to the appeals office of her medical insurance to start an appeal. in the meantime the patient continues using her CPAP therapy. The CPAP therapy continues to be affecting beneficial. She does use it for more than 4 hours a night. 03/14/2020 the patient is here for pulmonary follow-up visit. She continues to be symptomatic with significant dyspnea on exertion moderate severity. Also complains of fatigue and also body aches. She has recently started on the Remicade and continued on the methotrexate full dose. She has not noticed any significant improvement although it is still early. Based on her PET scan she still had active cardiac sarcoidosis. The patient did undergo a 6 minutes walk test demonstrating desaturations to 88% although briefly. This is still concern. Therefore, we need to address the question of any worsening parenchymal lung disease or any worsening pulmonary vascular disease. The patient needs to follow-up with sarcoid clinic in [place] and also needs to follow-up with her radiology asst. In the meantime she is struggling with the fact that her disability was discontinued. I did provide her appeal letter and she will provide her own appear letter as well. At this point based on the patient's condition I do not recommend the patient goes back to work based on the fact that she is still very symptomatic. She also continues to use her CPAP the CPAP therapy continues to be affecting beneficial. She uses it more than 4 hours a night. The next step is for her to call [place] and will have to further decide how to adjust her methotrexate while on the Remicade. Based on her hypoxia she is also undergo undergo blood work. We are going to check a D-dimer along with the blood work. The echocardiogram she needs to get scheduled through her radiology asst. 05/15/2022 the patient is here for a pulmonary follow-up visit. Overall the patient is doing well. Denies any nausea or any abdominal discomfort. Denies any jaundice. She did have slight elevation her total bili during her last blood work. Therefore she did undergo an ultrasound of the abdomen demonstrating some fatty infiltration. Will have her repeat her blood work if her LFTs are still significantly elevated then will refer her to GI. She did follow-up in [place] with the sarcoid Clinic. She continues on the Remicade every 4 weeks and also continues with 3 tablets of methotrexate. This appears to be improving her respiratory status and cardiovascular status as well. She continues her inhalers. The patient has been using her CPAP. CPAP therapy continues to be affecting beneficial. She needs to make sure she uses it 4 hours a night. She is getting supplies from her [employer]. She is planning a trip to [place] sometime in August. We will evaluate her prior to that trip to make sure that she has all her medications and to make sure she is able to travel. The patient also needs to make sure she gets her vaccines for traveling abroad to [place] per otherwise patient is without any other complaints. 09/03/2022 the patient is here for pulmonary follow-up visit. He continues to do well. She has a planned trip to [place]. I will make sure that she has all medications available. She did follow-up in the sarcoid Clinic in [place]. At this point will that she is going to continue on the Remicade every 4 weeks until the end of the year and then she is going to be slowly taper down to every 5 weeks and then as such. The methotrexate still at 3 tablets or 7.5 mg weekly which she seems to be tolerating. Will go ahead and recheck her LFTs to make sure that her liver functions continue to improve. She did have an episode of palpitations and tremors some weeks ago. She did follow-up with Cardiology because she did have a tachyarrhythmia. Although her defibrillator did not sense it. She did follow-up with cardiology and adjustments were made. The patient has not had any episodes like that since then. 03/17/2023 the patient is here for pulmonary follow-up visit. She had a great time in after cough for her mission trip. She was able to continue her medications. The patient still complains of dyspnea on exertion and just fatigue. But overall feels like she is at her baseline. We did talk about her abnormal laboratories including elevated LFTs. I will go ahead and refer her to GI although if her LFTs continue elevated or worsen will consider decreasing or stopping the methotrexate 4. At time. The patient also continues on Remicade every 4 weeks which appears to be responding well to therapy. The patient has not been using her CPAP. She does have some daytime drowsiness but not significant enough to go back on the CPAP. She felt like she was getting choked up with CPAP so therefore she stopped a long time ago. Therefore, will monitor him closely. We talked about positional therapy. Will consider repeating the sleep study in the future possibly next year. Will follow-up in 3-4 months. Otherwise if the patient has any issues or concerns she will call the office for an earlier assessment. 06/18/2023 the patient is here for a pulmonary follow-up visit. The patient has been doing well. The patient states that she does not always take the methotrexate because she forgets. Also makes it feel unwell. It is reassuring that her LFTs are better this time. She is responding well to the Remicade. She will be following up at [facility] in the next few months. At this point the patient had been doing well would can see if we can just wean her off the methotrexate specially if she has not taking it as prescribed. We can wean slowly off if the patient feels that she is developing any worsening symptoms she can always call the office we can reassess. Ultimately we try to get her off the immunomodulator specially since his small dose and she can get really tested when she goes to [place] in the next few months. Also, the patient has been describing episodes of palpitations. She did follow-up with a radiology asst and she did have her defibrillator downloaded but no significant arrhythmias noted per the patient. The patient has not been using her CPAP. I did explain to her that sleep apnea if untreated can result in increased palpitations and tachycardia. Therefore she is going to start using the CPAP at this time. 01/04/2024 the patient is here for a pulmonary follow-up visit. Overall she is doing well. Respiratory gasca she is doing well. She has a cold right now. Positive sick contacts. She does have primarily sinus congestion. Has a cough which productive in nature. The patient has been using the Remicade every 4 weeks. She is off the methotrexate altogether. LFTs have normalized. She has not had blood work since April. Will go ahead and request blood work at this time. The patient has not been able to use her CPAP. Currently set up CPAP of 6 cm. I did decrease down to CPAP of 5 cm with the hope that she can tolerated. In the future if she continues to have difficulties tolerating it may be reasonable to consider repeating the sleep study see if she no longer needs it. She continues with respiratory therapy with good effect. Otherwise patient is without any other complaints. [facility] Medical History GERD (gastroesophageal reflux disease) COVID-19 Depressive disorder due to separate medical condition ELMER on CPAP Cardiac sarcoidosis Sarcoidosis Surgical History H/O endoscopy Hx of colonoscopy Family History Daughter No problems noted. Social History Alcohol intake: current Alcohol intake frequency: a few times a month Patient Tobacco Use Status: Never used Tobacco Review of Systems Const Denies body aches, Denies fatigue, Denies headache(s), Denies lethargy, Denies malaise and Denies night sweats ENT Denies change in voice, Denies headache(s), Denies lip swelling, Denies mouth pain, Denies nasal congestion, Denies nasal discharge and Denies tongue swelling Card Denies chest pain and Reports dyspnea on exertion Resp Reports cough and Reports dyspnea on exertion GI Denies abdominal pain, Reports dyspepsia and Denies heartburn Musc Denies myalgias Neuro Denies Neuro-related abnormal movements and Denies headache(s) Psych Reports no additional complaints Endo Denies fatigue Joey/Lymph Denies easy bleeding and Denies lymphadenopathy Aller/Immun Denies lip swelling and Denies tongue swelling Physical Exam Vital Signs: Last Vital Signs Pulse 63 01/04/24 09:23 BP 124/78 01/04/24 09:23 Pulse Ox 98 01/04/24 09:23 Oxygen Delivery Method Room Air 01/04/24 09:23 BMI result Body Mass Index 29.2 Const General: alert HEENT Face and sinus: Yes other (cold sores around lips) Throat: Yes posterior oropharynx abnormal (pharyngitis) Neck Neck: Yes normal visual inspection, Yes full ROM and Yes no lymphadenopathy Chest Chest palpation & inspection: normal inspection of the chest Resp Auscultation: clear to auscultation bilaterally, no crackles, no rales and no wheezes Cardio Rate: regular rate Rhythm: regular rhythm Heart sounds: S1 normal heart sound present and S2 normal heart sound present GI Palpation (GI): Soft to palpation and nontender Auscultation: normal bowel sounds Skin General skin exam: rashes and/or lesions noted Assessment & Plan Assessment & Plan (1) Sarcoidosis: Code(s): D86.9 - Sarcoidosis, unspecified Category: Medical (2) ELMER on CPAP: Code(s): G47.33 - Obstructive sleep apnea (adult) (pediatric); Z99.89 - Dependence on other enabling machines and devices Category: Medical (3) Cardiac sarcoidosis: Code(s): D86.85 - Sarcoid myocarditis Category: Medical (4) Transaminitis: Code(s): R74.01 - Elevation of levels of liver transaminase levels Category: Medical Plan continue Remicade every 4 weeks stopped methotrexate Azithromycin x 5 weeks Continue Pepcid APAP, adjusted pressures 4-8, hard time with it continue trazodone at night Fluticasone nasal spray Breo daily MARCIA as needed Follow-up in 4-6 months Orders: Orders Basic Metabolic Panel Today R74.01 - Elevation of levels of liver transaminase levels Complete Blood Count Auto Diff Today R74.01 - Elevation of levels of liver transaminase levels Liver Panel Today R74.01 - Elevation of levels of liver transaminase levels Angiotensin Converting Enzyme Today R74.01 - Elevation of levels of liver transaminase levels Erythrocyte Sedimentation Rate Today R74.01 - Elevation of levels of liver transaminase levels Medications: New azithromycin 500 mg PO DAILY 5 tabs 0RF 5 days Coding Level of Care Code Est Pt Level 4 (49919) Complex EM visit Add On G2211 Diagnoses Sarcoidosis D86.9 ELMER on CPAP G47.33; Z99.89 Cardiac sarcoidosis D86.85 Transaminitis R74.01 Time Spent (min) 17
== END 2024-01-04 09:41 | disposition home or self-care (01) ==
PROVIDERS: PCP Pediatrics; Visit Provider Hospitalist
DX: D86.9 Sarcoidosis, unspecified (principal); G47.33 Obstructive sleep apnea (adult) (pediatric); Z99.89 Dependence on other enabling machines and devices; D86.85 Sarcoid myocarditis; R74.01 Elevation of levels of liver transaminase levels
CPT/HCPCS: 99214; G2211

== ENCOUNTER 2024-01-04 09:20 | Outpatient (REF) | payer OTHER, SELFPAY ==
[2024-01-04 10:36] LABS: MANUAL DIFF FLAG NO
[2024-01-04 10:53] LABS: Basophils Absolute Auto 0.1 X10*3/uL (0.0-0.2); Basophils Percent Auto 0.6 % (0-2); Eosinophils Absolute Auto 0.1 X10*3/uL (0.0-0.4); Eosinophils Percent Auto 1.1 % (0-4); Hematocrit 45.8 % (37.0-47.0); Hemoglobin 15.4 g/dl (12.0-16.0); Imm Gran Abs Auto 0.04 X10*3/uL (0.00-0.03); Imm Gran Pct Auto 0.4 % (0.0-0.4); Lymphocytes Absolute Auto 2.3 X10*3/uL (1.2-4.9); Lymphocytes Percent Auto 23.5 % (20-40); Mean Corpuscular HGB Conc 33.6 g/dl (31.0-35.0); Mean Corpuscular Volume 89.3 fL (80.0-98.0); Mean Platelet Volume 9.6 fL (9.4-12.3); Monocytes Absolute Auto 0.8 X10*3/uL (0.1-1.2); Monocytes Percent Auto 8.7 % (2-11); Neutrophils Absolute Auto 6.3 x10*3/uL (2.0-8.3); Neutrophils Percent Auto 65.7 % (45-73); Platelet Count 255 X10*3/uL (160-400); Red Blood Count 5.13 X10*6/uL (4.20-5.50); Red Cell Distribution Width 12.5 % (11.0-16.0); White Blood Count 9.6 X10*3/uL (4.8-10.8)
[2024-01-04 11:30] LABS: Alanine Aminotransferase 43 U/L (0-31); Albumin Level 4.4 g/dL (3.5-5.0); Alkaline Phosphatase 74 U/L (39-117); Anion Gap 14 (12-20); Aspartate Amino Transferase 28 U/L (5-31); Bilirubin Direct 0.3 mg/dL (0.0-0.5); Bilirubin Total 1.4 mg/dL (0.0-1.0); Blood Urea Nitrogen 8 mg/dL (9-16); Carbon Dioxide 29 mmol/L (22-29); Chloride 103 mmol/L (96-108); Estimated Glomerular Filt Rate > 60; Glucose Random 97 mg/dL (60-115); Potassium 4.5 mmol/L (3.3-5.1); Sodium 141 mmol/L (135-145); Total Protein 7.8 g/dL (6.5-8.0)
[2024-01-04 11:49] LABS: Erythrocyte Sedimentation Rate 11 MM/HR (0-20)
[2024-01-07 18:48] LABS: Angiotensin Converting Enzyme 26 U/L (9-67)
== END 2024-01-04 09:21 | disposition home or self-care (01) ==
LOC: HO.LAB 09:20
PROVIDERS: PCP Pediatrics; Visit Provider Hospitalist
DX: D86.85 Sarcoid myocarditis (principal); G47.33 Obstructive sleep apnea (adult) (pediatric); R74.01 Elevation of levels of liver transaminase levels; Z99.89 Dependence on other enabling machines and devices
CPT/HCPCS: 36415; 80048; 80076; 82164; 85025; 85652; 99212

== ENCOUNTER 2024-01-22 09:59 | Outpatient (REF) | payer OTHER, SELFPAY ==
[2024-01-25 10:42] LABS: TS Negative Control Passed; TS Panel A 0; TS Panel B 0; TS Positive Control Passed; TSpotTB Negative (Negative)
== END 2024-01-22 10:00 | disposition home or self-care (01) ==
LOC: HO.LAB 09:59
PROVIDERS: PCP Pediatrics; Visit Provider Hospitalist
DX: D86.9 Sarcoidosis, unspecified (principal)
CPT/HCPCS: 36415; 86481

== ENCOUNTER 2024-07-05 11:08 | Outpatient (AMB) | payer OTHER, SELFPAY ==
--- NOTE | 2024-07-05 11:16 | MHC.OFFVIS ---
Vital Signs 07/05/24 11:17 Height 5 ft Weight 149 lb 14.629 oz BMI 29.3 BP 104/66 Blood Pressure Location Rt brachial Position Sitting Pulse 77 Pulse Source Pulse Oximeter Pulse Oximetry (%) 97 Oxygen Delivery Method Room Air Intake Visit Reasons: Asthma Allergies Penicillin Allergy (Mild, Uncoded 07/05/24 11:21) Rash Sulfa Drugs Allergy (Mild, Uncoded 07/05/24 11:21) Rash HPI Comments Details: The patient is a 64-year-old woman with a known history of lymphadenopathy and cardiac sarcoidosis and obstructive sleep apnea on CPAP.. It was complicated by cardiac arrhythmia in a decreased EF require an ICD. she has been cortical steroid in addition to high doses of methotrexate with persistent symptoms of dyspnea. therefore, she had a repeat cardiac PET demonstrating still moderate amount of active sarcoid activity. the patient had been referred to the [facility] sarcoid clinic. It was their recommendation in addition to my for her to start his TNF inhibitor, Remicade. 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 However, after an extensive prior approval process her medical insurance for denied the medication that the patient needs. I did reach out to the appeals office of her medical insurance to start an appeal. in the meantime the patient continues using her CPAP therapy. The CPAP therapy continues to be affecting beneficial. She does use it for more than 4 hours a night. 06/18/2023 the patient is here for a pulmonary follow-up visit. The patient has been doing well. The patient states that she does not always take the methotrexate because she forgets. Also makes it feel unwell. It is reassuring that her LFTs are better this time. She is responding well to the Remicade. She will be following up at [facility] in the next few months. At this point the patient had been doing well would can see if we can just wean her off the methotrexate specially if she has not taking it as prescribed. We can wean slowly off if the patient feels that she is developing any worsening symptoms she can always call the office we can reassess. Ultimately we try to get her off the immunomodulator specially since his small dose and she can get really tested when she goes to [place] in the next few months. Also, the patient has been describing episodes of palpitations. She did follow-up with a pawn broker and she did have her defibrillator downloaded but no significant arrhythmias noted per the patient. The patient has not been using her CPAP. I did explain to her that sleep apnea if untreated can result in increased palpitations and tachycardia. Therefore she is going to start using the CPAP at this time. 01/04/2024 the patient is here for a pulmonary follow-up visit. Overall she is doing well. Respiratory gasca she is doing well. She has a cold right now. Positive sick contacts. She does have primarily sinus congestion. Has a cough which productive in nature. The patient has been using the Remicade every 4 weeks. She is off the methotrexate altogether. LFTs have normalized. She has not had blood work since April. Will go ahead and request blood work at this time. The patient has not been able to use her CPAP. Currently set up CPAP of 6 cm. I did decrease down to CPAP of 5 cm with the hope that she can tolerated. In the future if she continues to have difficulties tolerating it may be reasonable to consider repeating the sleep study see if she no longer needs it. She continues with respiratory therapy with good effect. Otherwise patient is without any other complaints. 07/05/2024 the patient is here for a pulmonary follow-up visit. Overall the patient has been doing fair until recently when she started developing left lower quadrant abdominal pain. She feels like it is her diverticulitis. She also did start developing some redness of the eye the right side. She has some pressure sensation also in that area. As far as her breathing she had been doing okay. She continues on the Remicade in her respiratory medicines. She has not been able to use her CPAP because of the she can not tolerate anymore because of gagging and coughing. Therefore she has been trying positional therapy. For now because of the abdominal discomfort in the likely diverticulitis will hold off on the Remicade for couple weeks and she can start Augmentin. I will send a message out to her GI doctor so she is aware. The patient is aware though that she develops any worsening discomfort or no improvement the patient needs to go to the ER to be further addressed. [facility] Medical History GERD (gastroesophageal reflux disease) COVID-19 Depressive disorder due to separate medical condition ELMER on CPAP Cardiac sarcoidosis Sarcoidosis Surgical History H/O endoscopy Hx of colonoscopy Family History Daughter No problems noted. Social History Alcohol intake: current Alcohol intake frequency: a few times a month Patient Tobacco Use Status: Never used Tobacco Review of Systems Const Reports fatigue, Denies fever(s), Denies headache(s), Denies malaise and Denies night sweats Eyes Reports irritation and Reports eye pain ENT Denies change in voice, Denies headache(s), Denies lip swelling, Denies mouth pain, Denies nasal congestion, Denies nasal discharge and Denies tongue swelling Card Denies chest pain and Reports dyspnea on exertion Resp Reports cough and Reports dyspnea on exertion GI Reports as per HPI, Reports abdominal pain, Reports dyspepsia and Denies heartburn Musc Denies myalgias Neuro Denies Neuro-related abnormal movements and Denies headache(s) Psych Reports no additional complaints Endo Reports fatigue Joey/Lymph Denies easy bleeding and Denies lymphadenopathy Aller/Immun Denies lip swelling and Denies tongue swelling Physical Exam Vital Signs: Last Vital Signs Pulse 77 07/05/24 11:17 BP 104/66 07/05/24 11:17 Pulse Ox 97 07/05/24 11:17 Oxygen Delivery Method Room Air 07/05/24 11:17 BMI result Body Mass Index 29.3 Const General: alert HEENT Face and sinus: Yes other (cold sores around lips) Throat: Yes posterior oropharynx abnormal (pharyngitis) Eyes Periorbital: periorbital findings abnormal right periorbital swelling, periorbital tenderness and periorbital erythema Neck Neck: Yes normal visual inspection, Yes full ROM and Yes no lymphadenopathy Chest Chest palpation & inspection: normal inspection of the chest Resp Auscultation: clear to auscultation bilaterally, no crackles, no rales and no wheezes Cardio Rate: regular rate Rhythm: regular rhythm Heart sounds: S1 normal heart sound present and S2 normal heart sound present GI Palpation (GI): Soft to palpation and Tenderness to palpation present (GI) in the LLQ; with no rebound tenderness Auscultation: normal bowel sounds Skin General skin exam: rashes and/or lesions noted Assessment & Plan Assessment & Plan (1) Sarcoidosis: Code(s): D86.9 - Sarcoidosis, unspecified Category: Medical (2) ELMER on CPAP: Code(s): G47.33 - Obstructive sleep apnea (adult) (pediatric); Z99.89 - Dependence on other enabling machines and devices Category: Medical (3) Cardiac sarcoidosis: Code(s): D86.85 - Sarcoid myocarditis Category: Medical (4) Transaminitis: Code(s): R74.01 - Elevation of levels of liver transaminase levels Category: Medical (5) Abdominal pain: Comment: ?diverticulitis Code(s): R10.9 - Unspecified abdominal pain Category: Medical Qualifiers: Abdominal location: left lower quadrant Qualified Code(s): R10.32 - Left lower quadrant pain Plan continue Remicade every 4 weeks, holding x 2 weeks start Augmentin Continue Pepcid APAP, adjusted pressures 4-8, hard time with it continue trazodone at night Fluticasone nasal spray Breo daily MARCIA as needed ER if worsens. Should call GI office too Follow-up in 4-6 months Medications: New amoxicillin-pot clavulanate 875-125 mg 1 tab PO BID 28 tabs 0RF 14 days Coding Level of Care Code Est Pt Level 4 (75503) Complex EM visit Add On G2211 Diagnoses Sarcoidosis D86.9 ELMER on CPAP G47.33; Z99.89 Cardiac sarcoidosis D86.85 Transaminitis R74.01 Left lower quadrant abdominal pain R10.32 Abdominal location: left lower quadrant Time Spent (min) 18
[2024-07-05 11:17] VITALS: BP 104/66; PULSE 77; O2SAT 97; BMI 29.3
--- OUTSIDE RECORDS SUMMARY | 2024-07-05 13:48 | XMS_ITS | Encounter Summary ---
Author Organization [facility] Address [address] [place] [address] Care Team Providers Care Entry Analyst Name Role Phone Tuyet Beavers MD Primary Care Provider Encounter Details Date Type Department Care Team (Late st Contact Info) Description 06/15/2024 1:50 PM EST Ancillary Procedure [facility] - [address] [place] [id number] Social History Tobacco Use Types Packs/Day Years Used Date Smoking Tobacco: Never Smokeless Tobacco: Never Alcohol Use Standard Drinks/Week Comments Yes 0.8 (1 standard drink = 0.6 oz p ure alcohol) Comments Unknown Sex and Gender Information Value Date Recorded Sex Assigned at Not on file Legal Sex Female 10:52 PM EST Gender Identity Not on file Sexual Orientation Not on file documented as of this encounter Plan of Treatment Upcoming Encounters Date Type Department Care Team (Late st Contact Info) Description 05/25/2025 10:30 AM EST Ancillary Procedure [facility] - [address] [place] [address] documented as of this encounter Procedures Procedure Name Priority Date/Time Associated Diagnosis Comments CARDIAC DEVICE CHECK- REMOTE- MURJ Routine 06/15/2024 1:45 PM EST documented in this encounter Results * Cardiac device check - Remote- MURJ (06/15/2024 1:45 PM EST) Date Time Interrogation Session [id number] CV DEVICE CHECK Type Interrogation Session Remote Scheduled CV DEVICE CHECK Implantable Pulse Generator [employer] Commissioner BSX CV DEVICE CHECK Implantable Pulse Generator Type ICD CV DEVICE CHECK Implantable Pulse Generator Model D152 CV DEVICE CHECK Implantable Pulse Generator Serial Number [id number] CV DEVICE CHECK Implantable Pulse Generator Implant Date 20181202 CV DEVICE CHECK Battery Remaining Percentage 100.00 CV DEVICE CHECK Battery Remaining Longevity 102.0 CV DEVICE CHECK Battery Status Beginning of Service CV DEVICE CHECK Capacitor Charge Time 11.300 CV DEVICE CHECK Noah Statistic RA Percent Paced 0.00 CV DEVICE CHECK Noah Statistic RV Percent Paced 0.00 CV DEVICE CHECK Atrial Tachy Statistic AT/AF Deputy Percent 0.00 CV DEVICE CHECK Lead Channel Sensing Intrinsic Amplitude 2.700 CV DEVICE CHECK Lead Channel Setting Sensing Sensitivity 0.25 CV DEVICE CHECK Lead Channel Impedance Value 678 CV DEVICE CHECK Lead Channel Setting Pacing Amplitude 2.000 CV DEVICE CHECK Lead Channel Setting Pacing Pulse Width 0.4 CV DEVICE CHECK Lead Channel Sensing Intrinsic Amplitude 15.000 CV DEVICE CHECK Lead Channel Setting Sensing Sensitivity 0.60 CV DEVICE CHECK Lead Channel Impedance Value 534 CV DEVICE CHECK Lead Channel Setting Pacing Amplitude 3.000 CV DEVICE CHECK Lead Channel Setting Pacing Pulse Width 0.4 CV DEVICE CHECK Noah Setting Mode (NBG Code) DDD CV DEVICE CHECK Noah Setting Lower Rate Limit 40 CV DEVICE CHECK Noah Setting AT Mode Switch Rate 180 CV DEVICE CHECK Noah Setting Maximum Tracking Rate 120 CV DEVICE CHECK Noah Setting PAV Delay 200 CV DEVICE CHECK Noah Setting ROHINI Delay 180 CV DEVICE CHECK Therapy Statistic Recent Shocks Delivered 0 CV DEVICE CHECK Therapy Statistic Recent Shocks Aborted 0 CV DEVICE CHECK Therapy Statistic Recent ATP Delivered 0 CV DEVICE CHECK Shock Measured Impedance 77 CV DEVICE CHECK Zone Setting Type Category VF CV DEVICE CHECK Rate 200 CV DEVICE CHECK Therapies Burst,31J,41J,41J x 6 CV DEVICE CHECK Zone Setting Status On CV DEVICE CHECK Zone ID 1 CV DEVICE CHECK Zone Setting Type Category VT CV DEVICE CHECK Rate 170 CV DEVICE CHECK Zone Setting Status Monitor CV DEVICE CHECK Zone ID 2 CV DEVICE CHECK Date of Service 2024-06-15 CV DEVICE CHECK Anatomical Region Laterality Modality Device Interroga tion 06/08/2024 3:41 AM EST Impressions 06/15/2024 1:44 PM EST Normal Remote: No Events * Normal Device Function * Alerts or events: None * Battery: Battery is at 100%, 8.50 yrs * Sensing, impedance and thresholds reviewed * Programmed parameters reviewed * Presenting rhythm reviewed * Heart Rate Histograms reviewed * No significant changes noted Narrative Procedure Note Everton Dior MD - 06/15/2024 IMPRESSION: Normal Remote: No Events * Normal Device Function * Alerts or events: None * Battery: Battery is at 100%, 8.50 yrs * Sensing, impedance and thresholds reviewed * Programmed parameters reviewed * Presenting rhythm reviewed * Heart Rate Histograms reviewed * No significant changes noted Everton Dior MD CV IMPLANTABLE CARDIAC DEVICE PROCEDURES Final Result documented in this encounter Visit Diagnoses Not on filedocumented in this encounter Care Teams Entry Analyst Relationship Specialty Start Date End Date Tuyet Beavers MD [address] [address] PCP - General Internal Medicine 03/03/24 documented as of this encounter
--- OUTSIDE RECORDS SUMMARY | 2024-07-05 13:48 | XMS_ITS | Clinical Summary ---
Author Organization [address] [place] [address] [place] [phone] Phone Care Team Providers Care Software Administrator Name Role Phone Tuyet Beavers MD Primary Care Provider Allergies Active Allergy Reactions Criticality Noted Date Comments Penicillins 08/06/2007 Tolerated IV Zosyn during hospitalization 2020 Sulfa (Sulfonamide Antibiotics) 10/18/2009 Medications ibuprofen (ADVIL,MOTRIN) 800 mg tablet Take 1 tablet (800 mg total) by mouth every 8 (eight) hours if needed (Pain). 5 Active multivit-min/fe rrous fumarate (MULTI VITAMIN ORAL) 1 (one) time each day. 8 Active albuterol HFA (PROAIR HFA ; PROVENTIL HFA ; VENTOLIN HFA) 90 mcg/actuation inhaler Inhale 2 puffs by mouth every 4 (four) hours if needed (Cough, Wheezing or Shortness of Breath). 1 Active citalopram (CeleXA) 10 mg tablet Take 1 tablet (10 mg total) by mouth 1 (one) time each day. 2 Active fluticasone propionate (FLONASE) 50 mcg/actuation nasal spray Administer 2 sprays into each nostril 1 (one) time each day. Active fluticasone furoate-vilante roL (BREO ELLIPTA) 200-25 mcg/dose inhaler Inhale 1 puff by mouth 1 (one) time each day. Active folic acid (FOLVITE) 1 mg tablet Take 1 tablet (1 mg total) by mouth 1 (one) time each day. for 30 days 9 Active inFLIXimab (REMICADE/UNBRA NDED) 100 mg injection Infuse 3 mg/kg into a venous catheter. Every 8 weeks 1 Active ipratropium (ATROVENT) 21 mcg (0.03 %) nasal spray Administer 2 sprays into affected nostril(s) every 12 (twelve) hours. for 30 days 9 Active methotrexate 2.5 mg tablet Take 3 tablets (7.5 mg total) by mouth 1 (one) time per week 2 Active omeprazole OTC (PriLOSEC OTC) 20 mg EC tablet Take 2 tablets (40 mg total) by mouth 1 (one) time each day. 2 Active vitamin A palmitate-vitam in D2 10,000-400 unit tablet Take by mouth. Activ e chlorpheniramin e (CHLOR-TRIMETON ) 4 mg tablet Take 1 tablet (4 mg total) by mouth every 6 (six) hours if needed for allergies. Active modafiniL (PROVIGIL) 200 mg tablet Take 1 tablet (200 mg total) by mouth 1 (one) time each day. Max Daily Amount: 200 mg Active traZODone (DESYREL) 50 mg tablet Take 1 tablet (50 mg total) by mouth at bedtime. Active metoprolol succinate (Toprol XL) 100 mg 24 hr tablet Take 1.5 tablets in the morning and 1 tablet in the evening. 75 each 4 Active Active Problems Problem Noted Date Diagnosed Date Anxiety and depression 07/19/2020 Ventricular tachycardia 05/15/2020 Overview (03/04/2024): VT noted on 30d KURT in 2019, rate in the 160's S/p BoSci dual chamber AICD. Last Assessment & Plan: Patient described episode of palpitations with accompanying funny feeling , associated cold sweat. Device interrogated by EP nurse in the office today. No episodes of ventricular tachycardia were noted. See EP nurse note. Device settings adjusted with monitor zone reduced to 130 to hop picker on further episodes. Assessment & Plan (03/15/2024 4:27 PM EST): From cardiac sarcoidosis. No recurrent ventricular tachycardia by device interrogation. She has not had recurrent palpitation. I will change metoprolol to tartrate to succinate at the same dosage but less frequent dosing. She has been on immunosuppressant for predominant pulmonary sarcoidosis and is doing well. She is followed by sarcoid center. Orders: ECG 12 lead ELMER (obstructive sleep apnea) 05/14/2018 Overview (03/04/2024): [facility] Home Polysomnogram: Date 06/07/2018; AHI 6, Unclassified apneas 3; Obstructive apneas 18; Central apneas 6; Mixed apneas 0; hypopneas 18; average oxygen saturation 95% (lowest 86% without saturations <88% for 5% or more of study) - Obstructive Sleep Apnea - mild; mostly obstructive apneas and hypopneas; without sleep related hypoventilation by 2019 home polysomnogram. 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 She was started on steroid. Her cardiac MRI showed no late enhancement. Repeat PET scan demonstrate improvement but not completely resolution of uptake in the heart, lung, and liver. There is moderate improvement of cardiac uptake with residual activity mostly in the lateral wall. Stress echocardiogram in June 2020 without ischemia to a 10.1 MET workload Last Assessment & Plan: Responding well to methotrexate and Remicade. Last PET scan in 2020 showed no myocardial uptake Splenic cyst 06/16/2013 Asthmatic bronchitis 04/25/2010 Low back pain 08/06/2007 Shoulder pain 08/06/2007 Encounters Date Type Department Care Team Description 06/15/2024 1:50 PM EST Ancillary Procedure [facility] - [address] [place] [id number] 05/25/2024 10:30 AM EST Ancillary Procedure [facility] - [address] [place] [address] Encounter for adjustment or management of cardiac device from Last 3 Months Immunizations Name Administration Dates Next Due Influenza Quadravalent, MDCK , 0.5ml, with preservative (Flucelvax) 6mo and older 02/08/2018 Influenza trivalent, 0.5mL, preservative free (Fluarix; FluLaval; Fluzone) ages 6mo and older (Afluria) 3 years and older 04/04/2013,02/04/2011,02/07/2010,2008 Td Tetanus diptheria (Tdvax) 7yo and older 10/03/2016 Tdap Tetanus diptheria acell ular pertussis (Boostrix; Adacel) 7yo and older 08/20/2007 Surgical History Surgery Date Site/Laterality Comments OTHER SURGICAL HISTORY PROCEDURE: HISTORICAL MASTOIDECTOMY TONSILLECTOMY PROCEDURE: HISTORICAL TONSILLECTOMY OTHER SURGICAL HISTORY PROCEDURE: RI ASPIRATION&/INJECTION GANGLION CYST ANY LOCATJ; COMMENT: left wrist ABDOMINAL SURGERY 11/07/2017 PROCEDURE: HISTORICAL ABDOMINAL SURGERY; COMMENT: laparoscopic abdominal washout, omental patch to the contained perforated signoid diverticulitis, and placement of a 19-maori natasha drain at the pericolonic abscess. 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 Maternal Grandfather Maternal Grandmother Mother (Age 72) 08/2009 MFg lioblastoma Sister Alive Son 1 Son 2 Alive asthma Son 3 Alive asthma Social History Tobacco Use Types Packs/Day Years Used Date Smoking Tobacco: Never Smokeless Tobacco: Never Alcohol Use Standard Drinks/Week Comments Yes 0.8 (1 standard drink = 0.6 oz p ure alcohol) Comments Unknown Sex and Gender Information Value Date Recorded Sex Assigned at Not on file Legal Sex Female 10:52 PM EST Gender Identity Not on file Sexual Orientation Not on file Obstetrics History Last Filed Vital Signs Vital Sign Reading Time Taken Comments Blood Pressure 114/70 03/15/2024 2:02 PM EST Pulse 56 03/15/2024 2:02 PM EST Temperature - - Respiratory Rate - - Oxygen Saturation 96% 03/15/2024 2:02 PM EST Inhaled Oxygen Concentration - - Weight 71.2 kg (157 lb) 03/15/2024 2:02 PM EST Height 157.5 cm (5' 2 ) 03/15/2024 2:02 PM EST Body Mass Index 28.72 03/15/2024 2:02 PM EST Plan of Treatment Upcoming Encounters Date Type Department Care Team (Late st Contact Info) Description 05/25/2025 10:30 AM EST Ancillary Procedure [facility] [address] [facility] [address] [place] [address] Health Maintenance Due Date Last Done Comments Breast Cancer Screening 1961 COVID-19 Vaccine (#1) 1966 Pneumococcal Vaccine: 50+ Years (1 of 2 - PCV) 1980 Pneumococcal Vaccine: Pediatrics (0 to 5 Years) and At-Risk Patients (6 to 64 Years) (1 of 2 - PCV) 1980 Zoster Vaccines (1 of 2) 07/01/2011 Cervical Cancer Screening: Pap Smear 04/04/2016 04/04/2013, 04/04/2013 RSV Immunization Patients 60+ Years Old (1 - Risk 60-74 years 1-dose series) 2021 Depression Screening 04/05/2022 HIV Screening 04/05/2022 Medicare Annual Wellness Visit 04/05/2022 Social Influencers of Health Screening 04/05/2022 Influenza Vaccine (#1) 2023 3, 05/08/2022, 02/22/2021, Additional history exists DTaP,Tdap,and Td Vaccines (3 - Td or Tdap) 10/03/2026 10/03/2016, 08/20/2007 Colorectal Cancer Screening: Colonoscopy 01/26/2028 01/25/2018 Hepatitis C Screening Completed 11/10/2016 Hepatitis A Vaccines Aged Out 05/22/2022 No long er eligible based on patient's age to complete this topic HIB Vaccines Aged Out No longer eligi ble based on patient's age to complete this topic HPV Vaccines Aged Out No longer eligi ble based on patient's age to complete this topic Hepatitis B Vaccines Aged Out No long er eligible based on patient's age to complete this topic IPV Vaccines Aged Out No longer eligi ble based on patient's age to complete this topic MMR Vaccines Aged Out No longer eligi ble based on patient's age to complete this topic Meningococcal ACWY Vaccine Aged Out N o longer eligible based on patient's age to complete this topic Meningococcal B Vacine Aged Out No lo nger eligible based on patient's age to complete this topic RSV Immunization Patients Under 20 months Aged Out No longer eligible based on patient's age to complete this topic Varicella Vaccines Aged Out No longer eligible based on patient's age to complete this topic Medical Devices Implanted Type Area Valuation Manager Device Identifier Shelf Expiration Date Model / Serial / Lot Bsci-[id number] Implanted:11/2018 by Everton Dior MD (Quantity not on file) Cardiac ICD Left: Chest [employer]HY[employer] MGMT [id number] / [id number] / Procedures Procedure Name Priority Date/Time Associated Diagnosis Comments CARDIAC DEVICE CHECK- REMOTE- MURJ Routine 06/15/2024 1:45 PM EST CARDIAC DEVICE CHECK- IN CLINIC- MURJ Routine 05/25/2024 10:16 AM EST Encounter for adjustment or management of cardiac device COLONOSCOPY Routine 01/25/2018 HEPATITIS C SCREENING Routine 11/10/2016 HPV Routine 04/04/2013 from Last 3 Months or Most Recently Relevant to Health Maintenance Results * Cardiac device check - Remote- MURJ (06/15/2024 1:45 PM EST) Date Time Interrogation Session [id number] CV DEVICE CHECK Type Interrogation Session Remote Scheduled CV DEVICE CHECK Implantable Pulse Generator Valuation Manager BSX CV DEVICE CHECK Implantable Pulse Generator Type ICD CV DEVICE CHECK Implantable Pulse Generator Model D152 CV DEVICE CHECK Implantable Pulse Generator Serial Number [id number] CV DEVICE CHECK Implantable Pulse Generator Implant Date 20181202 CV DEVICE CHECK Battery Remaining Percentage 100.00 CV DEVICE CHECK Battery Remaining Longevity 102.0 CV DEVICE CHECK Battery Status Beginning of Service CV DEVICE CHECK Capacitor Charge Time 11.300 CV DEVICE CHECK Noah Statistic RA Percent Paced 0.00 CV DEVICE CHECK Noah Statistic RV Percent Paced 0.00 CV DEVICE CHECK Atrial Tachy Statistic AT/AF Lillian Percent 0.00 CV DEVICE CHECK Lead Channel [...] CV IMPLANTABLE CARDIAC DEVICE PROCEDURES Final Result * CARDIAC DEVICE CHECK- IN CLINIC- [facility] (05/25/2024 10:16 AM EST) Date Time Interrogation Session [id number] CV DEVICE CHECK Implantable Pulse Generator Valuation Manager BSX CV DEVICE CHECK Implantable Pulse Generator Type ICD CV DEVICE CHECK Implantable Pulse Generator Model D152 CV DEVICE CHECK Implantable Pulse Generator Serial Number [id number] CV DEVICE CHECK Implantable Pulse Generator Implant Date 20181202 CV DEVICE CHECK Battery Status Middle of Service CV DEVICE CHECK Noah Statistic RA Percent Paced 1.00 CV DEVICE CHECK Noah Statistic RV Percent Paced 1.00 CV DEVICE CHECK Lead Channel Sensing Intrinsic Amplitude 3.500 CV DEVICE CHECK Lead Channel Setting Sensing Sensitivity 0.25 CV DEVICE CHECK Lead Channel Impedance Value 681 CV DEVICE CHECK Lead Channel Pacing Threshold Amplitude 0.600 CV DEVICE CHECK Lead Channel Pacing Threshold Pulse Width 0.4 CV DEVICE CHECK Lead Channel RA Pacing Threshold Date 2024-05-25 CV DEVICE CHECK Lead Channel Setting Pacing Amplitude 2.000 CV DEVICE CHECK Lead Channel Setting Pacing Pulse Width 0.4 CV DEVICE CHECK Lead Channel Sensing Intrinsic Amplitude 15.300 CV DEVICE CHECK Lead Channel Setting Sensing Sensitivity 0.60 CV DEVICE CHECK Lead Channel Impedance Value 524 CV DEVICE CHECK Lead Channel Pacing Threshold Amplitude 0.800 CV DEVICE CHECK Lead Channel Pacing Threshold Pulse Width 0.4 CV DEVICE CHECK Lead Channel RV Pacing Threshold Date 2024-05-25 CV DEVICE CHECK Lead Channel Setting Pacing Amplitude 3.000 CV DEVICE CHECK Lead Channel Setting Pacing Pulse Width 0.4 CV DEVICE CHECK Noah Setting Mode (NBG Code) DDD CV DEVICE CHECK Noah Setting Lower Rate Limit 40 CV DEVICE CHECK Noah Setting AT Mode Switch Rate 180 CV DEVICE CHECK Noah Setting Maximum Tracking Rate 120 CV DEVICE CHECK Noah Setting PAV Delay 300 CV DEVICE CHECK Noah Setting ROHINI Delay 270 CV DEVICE CHECK Therapy Statistic Recent Shocks Delivered 0 CV DEVICE CHECK Therapy Statistic Recent Shocks Aborted 0 CV DEVICE CHECK Therapy Statistic Recent ATP Delivered 0 CV DEVICE CHECK Shock Measured Impedance 71 CV DEVICE CHECK Zone Setting Type Category VF CV DEVICE CHECK Rate 200 CV DEVICE CHECK Therapies 31J, 41J CV DEVICE CHECK Zone Setting Status On CV DEVICE CHECK Zone ID 1 CV DEVICE CHECK Zone Setting Type Category VT CV DEVICE CHECK Rate 170 CV DEVICE CHECK Therapies NaNJ, NaNJ CV DEVICE CHECK Zone Setting Status Off CV DEVICE CHECK Zone ID 2 CV DEVICE CHECK Zone Setting Type Category VT1 CV DEVICE CHECK Therapies 0J, 0J CV DEVICE CHECK Zone Setting Status On CV DEVICE CHECK Zone ID 3 CV DEVICE CHECK Date of Service 2024-05-25 CV DEVICE CHECK Anatomical Region Laterality Modality Device Interroga tion 05/25/2024 Impressions 05/26/2024 12:55 PM EST Normal In-Office: No Events * Normal Device Function * Alerts or events: None * Battery: MOS, 9.5 years * Sensing, impedance and thresholds reviewed and tested * Presenting Rhythm: - VS 60's * Heart Rate Histograms reviewed * Pacing and Detection Parameters were evaluated Narrative Procedure Note Evreton Dior MD - 05/27/2024 IMPRESSION: Normal In-Office: No Events * Normal Device Function * Alerts or events: None * Battery: MOS, 9.5 years * Sensing, impedance and thresholds reviewed and tested * Presenting Rhythm: - VS 60's * Heart Rate Histograms reviewed * Pacing and Detection Parameters were evaluated us Order Referral Cardiovascular CV IMPLANTABLE CAR DIAC DEVICE PROCEDURES Final Result * Colonoscopy (01/25/2018) Pathologist [facility] Colonoscopy No interpretatio n, abstraced Anatomical Region Laterality Modality Other Historical Provider HEALTH MAINTENANCE Final Result * Hepatitis C Screening (11/10/2016) Pathologist [facility] Hepatitis C Screening Abstracted Historical Provider HEALTH MAINTENANCE Final Result * Cervical Cancer Screening: HPV (04/04/2013) Pathologist [facility] Cervical Cancer Screening: HPV Negative, abstracted us Historical Provider HEALTH MAINTENANCE Final Result from Last 3 Months or Most Recently Relevant to Health Maintenance Insurance [employer] Member Subscriber Plan / Payer (Ef fective 2022-Present) Name:Belkis Ernandez Relation to Subscriber:Self Name:Belkis Ernandez Payer ID:[id number] Group ID:[id number] Type:Not on file Address: [place] [address] [place] [id number] Care Teams Software Administrator Relationship Specialty Start Date End Date [facility] [address] [address] PCP - General Internal Medicine 03/03/24
== END 2024-07-05 11:48 | disposition home or self-care (01) ==
LOC: HO.HPS 11:08
PROVIDERS: PCP Pediatrics; Visit Provider Hospitalist
DX: D86.9 Sarcoidosis, unspecified (principal); G47.33 Obstructive sleep apnea (adult) (pediatric); Z99.89 Dependence on other enabling machines and devices; D86.85 Sarcoid myocarditis; R74.01 Elevation of levels of liver transaminase levels; R10.32 Left lower quadrant pain
CPT/HCPCS: 99214; G2211

== ENCOUNTER → 2024-07-05 11:08 | Outpatient (BNVA) | payer OTHER, SELFPAY | PROVIDERS: PCP Pediatrics; Visit Provider Hospitalist | DX: D86.85 Sarcoid myocarditis (principal); D86.9 Sarcoidosis, unspecified; G47.33 Obstructive sleep apnea (adult) (pediatric); R74.01 Elevation of levels of liver transaminase levels; R10.32 Left lower quadrant pain; Z99.89 Dependence on other enabling machines and devices | CPT/HCPCS: 99212 ==

== ENCOUNTER 2024-08-01 09:03 | Outpatient (AMB) | payer OTHER, SELFPAY ==
--- NOTE | 2024-08-01 09:06 | A.OFFVIS_ITS ---
Vital Signs 08/01/24 09:07 Height 5 ft 1 in Weight 149 lb 14.629 oz BMI 28.3 BP 116/84 Blood Pressure Location Lt brachial Position Sitting Pulse 63 Intake Visit Reasons: f/u Diverticula of the colon Intake Note: Belkis presents in the office as a follow up for Diverticulitis. CC: She is feeling much better but she suffered a very bad flare up. It lasted for about 2 weeks. She did not eat for as long as she could because of bad diarrhea and stomach cramping. She states her system is going back to normal now. 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 07/06/2023: Pt herself has no gastrointestinal complaints including abd pain, distention, rash, pruritus. Labs show predominant elevation of transaminases with ALT>AST with two elevated ALP values in 2019 and then again in Feb 2023 both times <3UNL. Pt does not drink. Med hx as below. No fam hx of liver diseases in FDRs. Metabolic risk factors include mildly elevated BMI to 27, otherise not diabetic or HTN, lipids normal per her report. Imaging includes US abd as well as prior CTs ([facility]) which suggest hepatic steatosis. 10/05/23: Here for follow up. Had one more flare of diverticulitis last month but was mild and did not have to seek medical attention. Last colo per [facility] records in 2018 (Dr Burnett) - diverticulosis. To recall, since then pt has had at least 3 flares. Otherwise, doing well. No other GI issues. Labs reviewed, LFTs remain normal. 08/01/24: Pt booked for this appt due to another flare up this June. Reports sx lasted almost 2 weeks and had to be seen in the hospital ([facility]) due to minimal clinical improvement with OP treatemtn with Augmentin. Was admitted overnight with Abx changed to flagyl and cefpodoxime x 10 days. Reports this was a particularly bad flare - thinks has not had this severity of sx in at least 2 years. Currently back at baseline. No active GI concerns. PFSH Medical History GERD (gastroesophageal reflux disease) COVID-19 Depressive disorder due to separate medical condition ELMER on CPAP Cardiac sarcoidosis Sarcoidosis Surgical History H/O endoscopy Hx of colonoscopy Family History Daughter No problems noted. Social History Alcohol intake: current Alcohol intake frequency: a few times a month Patient Tobacco Use Status: Never used Tobacco Review of Systems Const All systems reviewed & are unremarkable except as noted in HPI and below Physical Exam Vital Signs: Last Vital Signs Pulse 63 08/01/24 09:07 BP 116/84 08/01/24 09:07 BMI result Body Mass Index 28.3 No apparent distress Nonicteric Abdomen soft, nondistended Alert and oriented x3, normal gait Assessment & Plan Assessment & Plan (1) Diverticula, colon: Code(s): K57.30 - Diverticulosis of large intestine without perforation or abscess without bleeding Category: Medical Plan #Recurrent diverticulitis Has a major flare almost 1 every 2 years and a minor flare once a year. Feels sx burden is manageable and not interested in surgical re-referral at this time. Due for a colo which we will set up. Requests sutab after reviewing different types of prep. She was also encouraged to include fiber supplementation and avoid constipation. Will check Vit D level - replete if low. Mod etOH and red meat intake advised Follow up after colo Orders: Orders Vitamin D 25-OH Total Today R79.89 - Other specified abnormal findings of blood chemistry Medications: New sod sulf-pot chloride-mag sulf 1.479-0.188- 0.225 gram (Sutab) as per directions given by [facility] GI office 1 packet 0RF Coding Level of Care Code Est Pt Level 4 (28904) Diagnoses Diverticula, colon K57.30
[2024-08-01 09:07] VITALS: BP 116/84; PULSE 63; BMI 28.3
--- OUTSIDE RECORDS SUMMARY | 2024-08-01 10:03 | XMS_ITS | Encounter Summary ---
Author Organization [facility] Address [address] [place] [address] Care Team Providers Care Mononitrotoluene Operator Name Role Phone Tuyet Beavers MD Primary Care Provider Encounter Details Date Type Department Care Team (Late st Contact Info) Description 07/30/2024 12:40 AM EDT Ancillary Procedure [facility] - [address] [facility] [address] [place] [phone] Arrived Social History Tobacco Use Types Packs/Day Years [...] Description 05/25/2025 10:30 AM EST Ancillary Procedure [facility] - [address] [facility] [address] [place] [address] documented as of this encounter Procedures Procedure Name Priority Date/Time Associated Diagnosis Comments CARDIAC DEVICE CHECK- REMOTE- MURJ Routine 07/30/2024 12:39 AM EDT documented in this encounter Results * Cardiac device check - Remote- MURJ (07/30/2024 12:39 AM EDT) Date Time Interrogation Session [id number] CV DEVICE CHECK Type Interrogation Session Remote Scheduled CV DEVICE CHECK Implantable Pulse Generator Change Lead BSX CV DEVICE CHECK Implantable Pulse Generator Type ICD CV DEVICE CHECK Implantable Pulse Generator Model D152 CV DEVICE CHECK Implantable Pulse Generator Serial Number [id number] CV DEVICE CHECK Implantable Pulse Generator Implant Date 20181202 CV DEVICE CHECK Battery Remaining Percentage 100.00 CV DEVICE CHECK Battery Remaining Longevity 114.0 CV DEVICE CHECK Battery Status Beginning of Service CV DEVICE CHECK Capacitor Charge Time 11.200 CV DEVICE CHECK Noah Statistic RA Percent Paced 0.00 CV DEVICE CHECK Noah Statistic RV Percent Paced 0.00 CV DEVICE CHECK Atrial Tachy Statistic AT/AF [place] Percent 1.00 CV DEVICE CHECK Lead Channel Sensing Intrinsic Amplitude 3.400 CV DEVICE CHECK Lead Channel Setting Sensing Sensitivity 0.25 CV DEVICE CHECK Lead Channel Impedance Value 716 CV DEVICE CHECK Lead Channel Setting Pacing Amplitude 2.000 CV DEVICE CHECK Lead Channel Setting Pacing Pulse Width 0.4 CV DEVICE CHECK Lead Channel Sensing Intrinsic Amplitude 19.700 CV DEVICE CHECK Lead Channel Setting Sensing Sensitivity 0.60 CV DEVICE CHECK Lead Channel Impedance Value 547 CV DEVICE CHECK Lead Channel Setting Pacing [...] 0 CV DEVICE CHECK Shock Measured Impedance 84 CV DEVICE CHECK Zone Setting Type Category [...] 2 CV DEVICE CHECK Date of Service 2023-12-12 CV DEVICE CHECK Anatomical Region Laterality Modality Device Interroga tion 12/02/2023 3:41 AM EDT Impressions 12/08/2023 9:28 AM EDT Normal Remote: No Events * Normal Device Function * Alerts or events: None * Battery: Battery is at 100%, 9.50 yrs * Sensing, impedance and thresholds reviewed * Programmed parameters reviewed * Presenting rhythm reviewed * Heart Rate Histograms reviewed *AMS episode <1 min * No significant changes noted Narrative Procedure Note Everton Dior MD - 07/30/2024 IMPRESSION: Normal Remote: No Events * Normal Device Function * Alerts or events: None * Battery: Battery is at 100%, 9.50 yrs * Sensing, impedance and thresholds reviewed * Programmed parameters reviewed * Presenting rhythm reviewed * Heart Rate Histograms reviewed *AMS episode <1 min * No significant changes noted Everton Dior MD CV IMPLANTABLE CARDIAC DEVICE PROCEDURES Final Result documented in this encounter Visit Diagnoses Not on filedocumented in this encounter Care Teams Mononitrotoluene Operator Relationship Specialty Start Date End Date [facility] [address] [address] PCP - General Internal Medicine 03/03/24 documented as of this encounter
--- OUTSIDE RECORDS SUMMARY | 2024-08-01 10:03 | XMS_ITS | Clinical Summary ---
Author Organization [address] [place] [address] [place] [phone] Phone Care Team Providers Care Geographic Information Systems Manager Name Role Phone Tuyet Beavers MD Primary [...] with monitor zone reduced to 130 to seed cone picker on further episodes. Assessment & Plan [...] ELMER (obstructive sleep apnea) 05/14/2018 Overview (03/04/2024): [facility] Home Polysomnogram: Date 06/07/2018; AHI 6, Unclassified [...] pressures PET scan for pulmonary sarcoidosis in [facility] and demonstrated increased signal in the basal-mid [...] Encounters Date Type Department Care Team Description 07/30/2024 12:40 AM EDT Ancillary Procedure [facility] - [address] [place] [address] Arrived 06/15/2024 1:50 PM EST Ancillary Procedure [facility] [address] [place] [address] 05/25/2024 10:30 AM EST Ancillary Procedure [facility] - [facility] [address] [place] [address] Encounter for adjustment or management of cardiac [...] PROCEDURE: HISTORICAL TONSILLECTOMY OTHER SURGICAL HISTORY PROCEDURE: [place] ASPIRATION&/INJECTION GANGLION CYST ANY LOCATJ; COMMENT: left wrist ABDOMINAL SURGERY 11/07/2017 PROCEDURE: HISTORICAL ABDOMINAL SURGERY; COMMENT: laparoscopic abdominal washout, omental patch to the contained perforated signoid diverticulitis, and placement of a 19-yoruba natasha drain at the pericolonic abscess. OTHER [...] Description 05/25/2025 10:30 AM EST Ancillary Procedure [facility] - [facility] [address] [facility] [address] [place] [address] Health Maintenance Due Date Last Done Comments Breast Cancer Screening 1961 COVID-19 Vaccine (#1) 1966 Pneumococcal Vaccine: 50+ Years (1 of 2 - PCV) 1980 Pneumococcal Vaccine: Pediatrics (0 to 5 Years) and At-Risk Patients (6 to 64 Years) (1 of 2 - PCV) 1980 Zoster Vaccines (1 of 2) 07/01/2011 Cervical Cancer Screening: Pap Smear 04/04/2016 04/04/2013, 04/04/2013 RSV Immunization Adult Patients (1 - Risk 60-74 years 1-dose series) 2021 Depression Screening 04/05/2022 HIV Screening 04/05/2022 Medicare Annual Wellness Visit 04/05/2022 Social Influencers of Health Screening 04/05/2022 Influenza Vaccine (Season Ended) 2024 03/17/2023, 05/08/2022, 02/22/2021, Additional history exists DTaP,Tdap,and Td [...] this topic Medical Devices Implanted Type Area Boarder Steam Device Identifier Shelf Expiration Date Model / Serial / Lot Bsci-Crm [id number] Implanted:11/2018 by Everton Dior MD (Quantity not on file) Cardiac ICD Left: Chest [employer] RHY[employer]M MGMT D152 / [id number] / Procedures Procedure Name Priority Date/Time Associated Diagnosis Comments CARDIAC DEVICE CHECK- REMOTE- MURJ Routine 07/30/2024 12:39 AM EDT CARDIAC DEVICE CHECK- REMOTE- MURJ Routine 06/15/2024 1:45 PM EST CARDIAC DEVICE CHECK- IN CLINIC- MURJ Routine 05/25/2024 10:16 AM EST Encounter for adjustment or management of cardiac device COLONOSCOPY Routine 01/25/2018 HEPATITIS C SCREENING Routine 11/10/2016 HPV Routine 04/04/2013 from Last 3 Months or Most Recently Relevant to Health Maintenance Results * Cardiac device check - Remote- MURJ (07/30/2024 12:39 AM EDT) Only the most recent of2 resultswithin the time period is included. Date Time Interrogation Session [id number] CV DEVICE CHECK Type Interrogation Session Remote Scheduled CV DEVICE CHECK Implantable Pulse Generator Boarder Steam BSX CV DEVICE CHECK Implantable Pulse Generator Type ICD CV DEVICE CHECK Implantable Pulse Generator Model D152 CV DEVICE CHECK Implantable Pulse Generator Serial Number [id number] CV DEVICE CHECK Implantable Pulse Generator Implant Date 20181202 CV DEVICE CHECK Battery Remaining Percentage 100.00 CV DEVICE CHECK Battery Remaining Longevity 114.0 CV DEVICE CHECK Battery Status Beginning of Service CV DEVICE CHECK Capacitor Charge Time 11.200 CV DEVICE CHECK Noah Statistic RA Percent Paced 0.00 CV DEVICE CHECK Noah Statistic RV Percent Paced 0.00 CV DEVICE CHECK Atrial Tachy Statistic AT/AF [place] Percent 1.00 CV DEVICE CHECK Lead Channel [...] Result * CARDIAC DEVICE CHECK- IN CLINIC- [facility] (05/25/2024 10:16 AM EST) Date Time Interrogation Session [id number] CV DEVICE CHECK Implantable Pulse Generator Boarder Steam BSX CV DEVICE CHECK Implantable Pulse Generator Type ICD CV DEVICE CHECK Implantable Pulse Generator Model D152 CV DEVICE CHECK Implantable Pulse Generator Serial Number [id number] CV DEVICE CHECK Implantable Pulse Generator Implant [...] Detection Parameters were evaluated Narrative Procedure Note Everton Dior MD - 05/27/2024 IMPRESSION: Normal In-Office: [...] DEVICE PROCEDURES Final Result * Colonoscopy (01/25/2018) Colonoscopy No interpretatio n, abstraced Anatomical Region Laterality Modality Other Historical Provider HEALTH MAINTENANCE Final Result * Hepatitis C Screening (11/10/2016) [facility] Hep[facility] C Screening Abstracted Historical Provider HEALTH MAINTENANCE Final Result * Cervical Cancer Screening: HPV (04/04/2013) [facility] Cervical Cancer Screening: HPV Negative, abstracted Historical Provider HEALTH MAINTENANCE Final Result from Last 3 Months or Most Recently Relevant to Health Maintenance Insurance [employer] MEDICARE Member Subscriber Plan / Payer (Ef fective 2022-Present) Name:Belkis Ernandez Relation to Subscriber:Self Name:Belkis Ernandez Payer ID:[id number] Group ID:[id number] Type:Not on file Address: [place] [address] [address] [phone] Care Teams Geographic Information Systems Manager Relationship Specialty Start Date End Date Tuyet Beavers MD [address] [address] PCP - General Internal Medicine 03/03/24
== END 2024-08-01 09:46 | disposition home or self-care (01) ==
LOC: HO.HGI 09:04
PROVIDERS: PCP Pediatrics; Visit Provider Internal Medicine
DX: K57.30 Diverticulosis of large intestine without perforation or abscess without bleeding (principal)
CPT/HCPCS: 99214

== ENCOUNTER → 2024-08-01 09:03 | Outpatient (BNVA) | payer OTHER, SELFPAY | PROVIDERS: PCP Pediatrics; Visit Provider Internal Medicine | DX: K57.30 Diverticulosis of large intestine without perforation or abscess without bleeding (principal); R79.89 Other specified abnormal findings of blood chemistry | CPT/HCPCS: 99212 ==

== ENCOUNTER 2024-08-19 10:17 | Outpatient (REF) | payer OTHER, SELFPAY ==
--- OUTSIDE RECORDS SUMMARY | 2024-08-19 10:45 | XMS_ITS | Clinical Summary ---
Author Organization [address] [place] [address] [place] [phone] Phone Care Team Providers Care Coffee Shop Attendant Name Role Phone Tuyet Beavers MD Primary [...] Date Anxiety and depression 07/19/2020 Ventricular tachycardia (CMS/HCC V24, CMS/HCC V2 8) 05/15/2020 Overview (03/04/2024): VT noted on 30d [...] with monitor zone reduced to 130 to rock picker on further episodes. Assessment & Plan [...] ELMER (obstructive sleep apnea) 05/14/2018 Overview (03/04/2024): [facility] Home Polysomnogram: Date 06/07/2018; AHI [...] pressures PET scan for pulmonary sarcoidosis in [facility] and demonstrated increased signal in the [...] Description 07/30/2024 12:40 AM EDT Ancillary Procedure [facility] - [address] [place] [address] 06/15/2024 1:50 PM EST Ancillary Procedure [facility] [address] [place] [address] 05/25/2024 10:30 AM EST Ancillary Procedure [facility] [address] [place] [address] Encounter for adjustment or management of cardiac [...] PROCEDURE: HISTORICAL TONSILLECTOMY OTHER SURGICAL HISTORY PROCEDURE: [place] ASPIRATION&/INJECTION GANGLION CYST ANY LOCATJ; COMMENT: left wrist ABDOMINAL SURGERY 11/07/2017 PROCEDURE: HISTORICAL ABDOMINAL SURGERY; COMMENT: laparoscopic abdominal washout, omental patch to the contained perforated signoid diverticulitis, and placement of a 19-armenian natasha drain at the pericolonic abscess. OTHER [...] Description 05/25/2025 10:30 AM EST Ancillary Procedure [facility] [address] [facility] [address] [place] [address] Health Maintenance Due Date Last [...] age to complete this topic Meningococcal B Vaccine Aged Out No l onger eligible based on patient's age to complete this topic RSV Immunization Patients Under 20 months Aged Out No longer eligible based on patient's age to complete this topic Varicella Vaccines Aged Out No longer eligible based on patient's age to complete this topic Medical Devices Implanted Type Area Product Delivery Specialist Device Identifier Shelf Expiration Date Model / Serial / Lot Bsci-Crm [id number] Implanted:11/2018 by Everton Dior MD (Quantity not on file) Cardiac ICD Left: Chest [employer]HY[employer] MGMT D152 / [id number] / Procedures Procedure Name Priority Date/Time Associated Diagnosis Comments CARDIAC DEVICE CHECK- REMOTE- MURJ Routine 07/30/2024 12:39 AM EDT CARDIAC DEVICE CHECK- REMOTE- MURJ Routine 06/15/2024 1:45 PM EST CARDIAC DEVICE CHECK- IN CLINIC- MURJ Routine 05/25/2024 10:16 AM EST Encounter for adjustment or management of cardiac device COLONOSCOPY Routine 01/25/2018 HEPATITIS C SCREENING Routine 11/10/2016 HM HPV Routine 04/04/2013 from Last 3 Months or Most Recently Relevant to Health Maintenance Results * Cardiac device check - Remote- MURJ (07/30/2024 12:39 AM EDT) Only the most recent of2 resultswithin the time period is included. Date Time Interrogation Session [id number] CV DEVICE CHECK Type Interrogation Session Remote Scheduled CV DEVICE CHECK Implantable Pulse Generator Product Delivery Specialist BSX CV DEVICE CHECK Implantable Pulse Generator Type ICD CV DEVICE CHECK Implantable Pulse Generator Model D152 CV DEVICE CHECK Implantable Pulse Generator Serial Number [id number] CV DEVICE CHECK Implantable Pulse Generator Implant Date 20181202 CV DEVICE CHECK Battery Remaining Percentage 100.00 CV DEVICE CHECK Battery Remaining Longevity 114.0 CV DEVICE CHECK Battery Status Beginning of Service CV DEVICE CHECK Capacitor Charge Time 11.200 CV DEVICE CHECK Noah Statistic RA Percent Paced 0.00 CV DEVICE CHECK Noah Statistic RV Percent Paced 0.00 CV DEVICE CHECK Atrial Tachy Statistic AT/AF [place] Percent 1.00 CV DEVICE CHECK Lead Channel [...] Result * CARDIAC DEVICE CHECK- IN CLINIC- [facility] (05/25/2024 10:16 AM EST) Date Time Interrogation Session [id number] CV DEVICE CHECK Implantable Pulse Generator Product Delivery Specialist BSX CV DEVICE CHECK Implantable Pulse Generator Type ICD CV DEVICE CHECK Implantable Pulse Generator Model D152 CV DEVICE CHECK Implantable Pulse Generator Serial Number [id number] CV DEVICE CHECK Implantable Pulse Generator Implant [...] CAR DIAC DEVICE PROCEDURES Final Result * Hm Colonoscopy (01/25/2018) Pathologist [facility] Colonoscopy No interpretatio n, abstraced Anatomical Region Laterality Modality Other Historical Provider HEALTH MAINTENANCE Final Result * Hepatitis C Screening (11/10/2016) [facility] Hepatitis C Screening Abstracted [facility] Provider HEALTH MAINTENANCE Final Result * Cervical Cancer Screening: HPV (04/04/2013) [facility] Cervical Cancer Screening: HPV Negative, abstracted Historical Provider HEALTH MAINTENANCE Final Result from Last 3 Months or Most Recently Relevant to Health Maintenance Insurance [employer] MED[employer] Member Subscriber Plan / Payer (Ef fective 2022-Present) Name:Belkis Ernandez Relation to Subscriber:Self Name:Belkis Ernandez Payer ID:[id number] Group ID:[id number] Type:Not on file Address: [place] [address] [address] [phone] Care Teams Coffee Shop Attendant Relationship Specialty Start Date End Date Tuyet Baevers MD [address] [address] PCP - General Internal Medicine 03/03/24
[2024-08-19 11:22] LABS: Vitamin D 25-OH Total 39.7 ng/mL (>30)
== END 2024-08-19 10:18 | disposition home or self-care (01) ==
LOC: HO.LAB 10:17
PROVIDERS: PCP Pediatrics; Visit Provider Internal Medicine
DX: R79.89 Other specified abnormal findings of blood chemistry (principal)
CPT/HCPCS: 36415; 82306

== ENCOUNTER 2024-09-27 08:02 | Day surgery (SDC) | payer OTHER, SELFPAY ==
--- OUTSIDE RECORDS SUMMARY | 2024-08-31 06:57 | XMS_ITS | Clinical Summary ---
Author Organization [address] [place] [address] [place] [phone] Phone Care Team Providers Care Buncher Machine Name Role Phone Tuyet Beavers MD Primary [...] with monitor zone reduced to 130 to tack picker on further episodes. Assessment & Plan [...] ELMER (obstructive sleep apnea) 05/14/2018 Overview (03/04/2024): [facility] Home Polysomnogram: Date 06/07/2018; AHI 6, Unclassified [...] pressures PET scan for pulmonary sarcoidosis in [facility] and demonstrated increased signal in the basal-mid [...] Encounters Date Type Department Care Team Description 08/29/2024 Telephone [facility] [address] [place] [address] Sarah Frederick MD Pre-op Visit 07/30/2024 12:40 AM EDT Ancillary Procedure [facility] - [facility] [address] [facility] [address] [place] [address] 06/15/2024 1:50 PM EST Ancillary Procedure [facility] - [facility] [address] [facility] [address] [place] [address] from Last 3 Months Immunizations Name Administration [...] PROCEDURE: HISTORICAL TONSILLECTOMY OTHER SURGICAL HISTORY PROCEDURE: PA ASPIRATION&/INJECTION GANGLION CYST ANY LOCATJ; COMMENT: left wrist ABDOMINAL SURGERY 11/07/2017 PROCEDURE: HISTORICAL ABDOMINAL SURGERY; COMMENT: laparoscopic abdominal washout, omental patch to the contained perforated signoid diverticulitis, and placement of a 19-bengali natasha drain at the pericolonic abscess. OTHER [...] Care Team (Late st Contact Info) Description 09/09/2024 12:40 PM EDT Consult [facility] - [facility] [address] [facility] [address] [place] [address] Beatris Qiu NP [address] [place] [id number] 05/25/2025 10:30 AM EST Ancillary Procedure [facility] - [facility] [address] [facility] [address] [place] [address] Health Maintenance Due Date Last Done Comments [...] this topic Medical Devices Implanted Type Area Credit Front Office Developer Device Identifier Shelf Expiration Date Model / Serial / Lot Bsci-Crm [id number] Implanted:11/2018 by Everton Dior MD (Quantity not on file) Cardiac ICD Left: Chest [employer] MGMT [id number] / [id number] / Procedures Procedure Name Priority Date/Time Associated Diagnosis Comments CARDIAC DEVICE CHECK- REMOTE- MURJ Routine 07/30/2024 12:39 AM EDT CARDIAC DEVICE CHECK- REMOTE- MURJ Routine 06/15/2024 1:45 PM EST HM COLONOSCOPY Routine 01/25/2018 HEPATITIS C SCREENING Routine 11/10/2016 HPV Routine 04/04/2013 from Last 3 Months or Most Recently Relevant to Health Maintenance Results * Cardiac device check - Remote- MURJ (07/30/2024 12:39 AM EDT) Only the most recent of2 resultswithin the time period is included. Date Time Interrogation Session [id number] CV DEVICE CHECK Type Interrogation Session Remote Scheduled CV DEVICE CHECK Implantable Pulse Generator Credit Front Office Developer BSX CV DEVICE CHECK Implantable Pulse Generator Type ICD CV DEVICE CHECK Implantable Pulse Generator Model D152 CV DEVICE CHECK Implantable Pulse Generator Serial Number [id number] CV DEVICE CHECK Implantable Pulse Generator Implant Date 20181202 CV DEVICE CHECK Battery Remaining Percentage 100.00 CV DEVICE CHECK Battery Remaining Longevity 114.0 CV DEVICE CHECK Battery Status Beginning of Service CV DEVICE CHECK Capacitor Charge Time 11.200 CV DEVICE CHECK Noah Statistic RA Percent Paced 0.00 CV DEVICE CHECK Noah Statistic RV Percent Paced 0.00 CV DEVICE CHECK Atrial Tachy Statistic AT/AF [place] Percent 1.00 CV DEVICE CHECK Lead Channel [...] IMPLANTABLE CARDIAC DEVICE PROCEDURES Final Result * Colonoscopy (01/25/2018) [facility] Colonoscopy No interpretatio n, abstraced Anatomical Region Laterality Modality Other Historical Provider HEALTH MAINTENANCE Final Result * Hepatitis C Screening (11/10/2016) [facility] Hepatitis C Screening Abstracted Historical Provider HEALTH MAINTENANCE Final Result * Cervical Cancer Screening: HPV (04/04/2013) [facility] Cervical Cancer Screening: HPV Negative, abstracted Historical Provider HEALTH MAINTENANCE Final Result from Last 3 Months or Most Recently Relevant to Health Maintenance Insurance [employer] MED[employer] Member Subscriber Plan / Payer (Ef fective 2022-Present) Name:Belkis Ernandez Relation to Subscriber:Self Name:Belkis Ernandez Payer ID:[id number] Group ID:[id number] Type:Not on file Address: [place] [address] [address] [place] [id number] Care Teams Buncher Machine Relationship Specialty Start Date End Date Tuyet Beavers MD [address] [address] PCP - General Internal Medicine 03/03/24
--- OUTSIDE RECORDS SUMMARY | 2024-08-31 06:57 | XMS_ITS | Encounter Summary ---
Author Organization [facility] Address [address] [place] [address] Care Team Providers Care Automation And Controls Manager Name Role Phone Tuyet Beavers MD Primary Care Provider Reason for Visit * Reason Onset Date Comments Pre-op Visit 08/29/2024 Encounter Details Date Type Department Care Team (Late st Contact Info) Description 08/29/2024 Telephone [facility] - [facility] [address] [facility] [address] [place] [address] Sarah Frederick MD [address] [facility] [address] [place], [place] [id number] Pre-op Visit Social History Tobacco Use Types Packs/Day Years [...] on file documented as of this encounter Progress Notes * Joaquina Flores - 08/29/2024 4:39 PM EDT Spoke with Daysi and scheduled for 09/09/24 with Beatris Qiu. * Joaquina Flores - 08/29/2024 4:27 PM EDT Reached out and left a message for Daysi to schedule. I provided her my direct line. * Bethanie Maloney - 08/29/2024 9:21 AM EDT Pre Op Request Type Of Surgery: Right shoulder arthroscopy EKG Needed: yes Date Of Surgery: 10/05/24 Performing Doctor: Dr. Day Name of Caller: Daysi COSBY Phone number: [phone] documented in this encounter Plan of Treatment Upcoming Encounters Date Type Department Care Team (Late st Contact Info) Description 09/09/2024 12:40 PM EDT Consult [facility] [address] [place] [address] Beatris Qiu NP [address] [place] [address] 05/25/2025 10:30 AM EST Ancillary Procedure [facility] [address] [place] [address] documented as of this encounter Visit Diagnoses Not on filedocumented in this encounter Care Teams Automation And Controls Manager Relationship Specialty Start Date End Date Tuyet Beavers MD [address] [address] PCP - General Internal Medicine 03/03/24 documented as of this encounter
--- NOTE | 2024-09-26 13:04 | P.CONAN_ITS ---
Documented by User: Rosa Johnson NP 09/26/24 13:51 HPI - Anesthesia Eval Consult details Narrative: 64yo F for Colonoscopy ICD in situ (freq nonsustained VT) Follows [facility] for cardiac sarcoid, Vtach s/p ICD. 08/2024 office eval states chronic stable DIETRICH, no ischemic signs/symptoms. Optimized for shoulder surgery [facility] for sarcoid, ELMER. Optimized for endo per 06/2024 office eval PMFSH Active Problems Active Problems: All Active Problems Low vitamin D level (Acute) Abdominal pain (Acute) Diverticula, colon (Acute) GERD (gastroesophageal reflux disease) (Acute) Cold sore (Acute) Pharyngitis (Acute) COVID-19 (Acute) Depressive disorder due to separate medical condition (Acute) Hypoxia (Acute) ELMER on CPAP (Acute) Cardiac sarcoidosis (Acute) Transaminitis (Acute) Bibasilar crackles (Acute) Sarcoidosis (Acute) Past Medical History Medical History Implantable cardioverter-defibrillator (ICD) in situ NSVT (nonsustained ventricular tachycardia) GERD (gastroesophageal reflux disease) COVID-19 Depressive disorder due to separate medical condition ELMER on CPAP Cardiac sarcoidosis Sarcoidosis Family History Family History Daughter No problems noted. Surgical History Surgical History H/O endoscopy Hx of colonoscopy Social History Social History Are you a primary palliative care specialist to a significant other at home: No Do you presently have visiting nurse or other home services: No Alcohol intake: current Alcohol intake frequency: holidays/special occasions only Patient Tobacco Use Status: Never used Tobacco Use of substances other than those prescribed or required for medical reasons: No Are you DNR?: No Advance Directives: No Advance Directives Information Provided: Yes Poor oral hygiene: No Meds Allergies Allergy/AdvReac Type Severity Reaction Status Date / Time Penicillin Allergy Mild Rash Uncoded 09/27/24 09:07 Sulfa Drugs Allergy Mild Rash Uncoded 09/27/24 09:07 Home Medications ?Medication ?Instructions ?Recorded ?Confirmed ?Last Taken ?Type multivitamin 1 tab PO DAILY 05/04/20 09/18/20 Unknown History metoprolol tartrate 100 mg tablet 100 mg PO BID 02/22/21 09/27/24 09/27/24 History ipratropium bromide 21 mcg (0.03 2 spray intranasal TID PRN 03/17/23 Unknown History %) nasal spray chlorpheniramine maleate 4 mg mg PO 06/17/23 Unknown History tablet (Allergy (chlorpheniramine)) triamcinolone acetonide 0.1 % topical 10/05/23 Unknown History topical ointment CPAP (CPAP Machine/Device) 01/04/24 Unknown History Exam Narrative Narrative: EKG 08/2024 NSR @ 60 ICD Interr08/2024 Nml function 1 ATR episode, 1 minute Battery @ 100% No shocks Assessment and Plan Assessment Anesthesia Assessment: Chart Reviewed Documented by User: Poli Rolle MD 09/27/24 10:39 PMFSH Past Medical History Medical History Implantable cardioverter-defibrillator (ICD) in situ NSVT (nonsustained ventricular tachycardia) GERD (gastroesophageal reflux disease) COVID-19 Depressive disorder due to separate medical condition ELMER on CPAP Cardiac sarcoidosis Sarcoidosis Family History Family History Daughter No problems noted. Family history of problems with anesthesia: No Surgical History Surgical History H/O endoscopy Hx of colonoscopy History of Problems with Anesthesia: No Social History Social History Are you a primary palliative care specialist to a significant other at home: No Do you presently have visiting nurse or other home services: No Alcohol intake: current Alcohol intake frequency: holidays/special occasions only Patient Tobacco Use Status: Never used Tobacco Use of substances other than those prescribed or required for medical reasons: No Are you DNR?: No Advance Directives: No Advance Directives Information Provided: Yes Poor oral hygiene: No Meds Allergies Allergy/AdvReac Type Severity Reaction Status Date / Time Penicillin Allergy Mild Rash Uncoded 09/27/24 09:07 Sulfa Drugs Allergy Mild Rash Uncoded 09/27/24 09:07 Home Medications ?Medication ?Instructions ?Recorded ?Confirmed ?Last Taken ?Type multivitamin 1 tab PO DAILY 05/04/20 09/18/20 Unknown History metoprolol tartrate 100 mg tablet 100 mg PO BID 02/22/21 09/27/24 09/27/24 History ipratropium bromide 21 mcg (0.03 2 spray intranasal TID PRN 03/17/23 Unknown History %) nasal spray chlorpheniramine maleate 4 mg mg PO 06/17/23 Unknown History tablet (Allergy (chlorpheniramine)) triamcinolone acetonide 0.1 % topical 10/05/23 Unknown History topical ointment CPAP (CPAP Machine/Device) 01/04/24 Unknown History Exam Airway Mallampati Class: II TM Dist: <=3cm Neck ROM: Full Loose/Missing/Broken Teeth: No Heart: ok Lungs: ok Assessment and Plan Assessment Anesthesia Assessment: Anesthesia Plan Discussed Final Anesthetic Review Family History of Problems with Anesthesia: No History of Problems with Anesthesia: No NPO: Yes ASA Class: III Final Preanesthetic Review: No Changes in Pt Med Stat, Meds/Allgs Chart Reviewed, Consent Obtained/Reviewed and Anes Risks/Benef Reviewed Patient Risk: Intermediate Procedure Risk: Low Anesthetic Plan Anesthetic Plan: MAC: and Agree w/ Assess. and Plan Disposition: Standard PACU
--- NOTE | 2024-09-27 09:17 | MHC.SHP ---
Pre-Procedural Eval Section A - 24 Hr Update-Section A only Date of Service: 09/27/24 Section B - Complete if H&P > 30 days Chief Complaint: Recurrent diverticulitis Details of Present Illness: GERD (gastroesophageal reflux disease) COVID-19 Depressive disorder due to separate medical condition ELMER on CPAP Cardiac sarcoidosis Sarcoidosis Surgical History H/O endoscopy Hx of colonoscopy Allergies: Allergies Allergy/AdvReac Type Severity Reaction Status Date / Time Penicillin Allergy Mild Rash Uncoded 09/27/24 09:07 Sulfa Drugs Allergy Mild Rash Uncoded 09/27/24 09:07 Review of Systems Review of Systems Comment: Ten point ROS negative Exam Exam Comment: Gen appear: No acute distress HEENT: no icterus Chest: No overt resp distress Abd: soft, nontender, nondistended Psych: Stable affect, answering questions appropriately Neuro: A/Ox3 noted to move all extremities spontaneously Ext: no peripheral edema Plan Diagnosis/Plan: Unchanged I have reviewed the history and physical and performed a pertinent physical examination on my patient. No changes have occurred unless specified. Time Spent With Patient Time: Total time managing care of this patient today ____ minutes.
[2024-09-27 09:24] VITALS: BP 126/84; PULSE 68; RESP 14; TEMP 36.7; O2SAT 95; BMI 28.7
[2024-09-27 11:10] VITALS: BP 105/57; PULSE 70; RESP 18; TEMP 36.4; O2SAT 93
--- NOTE | 2024-09-27 11:12 | P.OPN-COLO_ITS ---
Colonoscopy Operative Note Operative Note Date of Service: 09/27/24 Narrative: Procedure: Colonoscopy Indication: Recurrent diverticulitis Endoscopist: Magaly Preciado MD Anesthesia Provider: Dr Poli Rolle Anesthesia type: MAC Instrument: Olympus [id number]-H190L Consent: Indication, risks vs benefits, and alternatives were discussed with the patient who gave written informed consent to proceed. EKG, pulse, pulse oximetry and blood pressure were monitored throughout the procedure. Please see anesthesia flowsheet. Procedure: The patient was brought to the procedure room and placed in the left lateral decubitus position. IV medications were administered by the anesthesia provider in attendance. A digital rectal exam was performed which was normal. A distal attachment cap was affixed to the tip of the colonoscope which was then inserted through the anus and advanced through the colon to the cecum at 70 cm,and terminal ileum. Appendiceal orifice and ileocecal valve were identified. Mucosa was carefully examined under high definition white light as the instrument was slowly withdrawn in a retrograde panoramic fashion. Retroflexion was performed in rectum. The procedure was not difficult. There were no immediate obvious complications. The quality of the prep was BBPS: 3+2+3 = adequate Withdrawal time 7 minutes. Limitations: No limitations. Findings: Mucosa: Normal to cecum and terminal ileum. Cold forceps biopsies were taken from right and left side of the colon and sent for histology. Protruding lesions: * Medium internal hemorrhoids without stigmata of recent bleeding. Excavated lesions: * Mild to moderate diverticulosis of left sided colon. Impression: 1. Normal colon and terminal ileum mucosa 2. Diverticulosis 3. Internal hemorrhoids Recommendations: - Follow path results. - Repeat colonoscopy in 10 years for asymptomatic colorectal ca screening.
[2024-09-27 11:25] VITALS: BP 116/72; PULSE 67; RESP 20; TEMP 36.4; O2SAT 95
== END 2024-09-27 12:00 | disposition home or self-care (01) ==
PROVIDERS: PCP Pediatrics; Visit Provider Internal Medicine
PROC: 0DJD8ZZ Inspection of Lower Intestinal Tract, Via Natural or Artificial Opening Endoscopic (ICD-10-PCS; CPT 45378; principal; 2024-09-27 10:00)
DX: K57.30 Diverticulosis of large intestine without perforation or abscess without bleeding (principal); Z87.19 Personal history of other diseases of the digestive system; K64.8 Other hemorrhoids; K21.9 Gastro-esophageal reflux disease without esophagitis; F32.89 Other specified depressive episodes; G47.33 Obstructive sleep apnea (adult) (pediatric); D86.85 Sarcoid myocarditis; D86.89 Sarcoidosis of other sites; I42.8 Other cardiomyopathies; Z95.810 Presence of automatic (implantable) cardiac defibrillator; R79.89 Other specified abnormal findings of blood chemistry; Z79.899 Other long term (current) drug therapy; Z99.89 Dependence on other enabling machines and devices; Z90.49 Acquired absence of other specified parts of digestive tract; Z88.0 Allergy status to penicillin; Z88.2 Allergy status to sulfonamides
CPT/HCPCS: 45380; 88305; J2003; J2704

== ENCOUNTER → 2024-09-27 08:02 | Outpatient (BNV) | payer OTHER, SELFPAY | PROVIDERS: PCP Pediatrics; Visit Provider Internal Medicine | DX: K57.90 Diverticulosis of intestine, part unspecified, without perforation or abscess without bleeding (principal); K64.8 Other hemorrhoids | CPT/HCPCS: 45380 ==

== ENCOUNTER 2024-10-26 11:46 | Outpatient (AMB) | payer OTHER, SELFPAY ==
[2024-10-26 11:48] VITALS: BP 110/76; PULSE 62; O2SAT 94; BMI 28.2
--- NOTE | 2024-10-26 11:48 | MHC.OFFVIS ---
Vital Signs 10/26/24 11:48 Height 5 ft 2 in Weight 154 lb 5.177 oz BMI 28.2 BP 110/76 Blood Pressure Location Lt brachial Position Sitting Pulse 62 Pulse Source Pulse Oximeter Pulse Oximetry (%) 94 Oxygen Delivery Method Room Air Intake Visit Reasons: Asthma Scientist Propagator Required: No Accompanied by: Self / Same As Patient Allergies Penicillin Allergy (Mild, Uncoded 09/27/24 09:07) Rash Sulfa Drugs Allergy (Mild, Uncoded 09/27/24 09:07) Rash HPI Comments Details: The patient is a 64-year-old woman with a known history of lymphadenopathy and cardiac sarcoidosis and obstructive sleep apnea on CPAP.. It was complicated by cardiac arrhythmia in a decreased EF require an ICD. she has been cortical steroid in addition to high doses of methotrexate with persistent symptoms of dyspnea. therefore, she had a repeat cardiac PET demonstrating still moderate amount of active sarcoid activity. the patient had been referred to the [facility] sarcoid clinic. It was their recommendation in addition to my for her to start his TNF inhibitor, Remicade. 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 However, after an extensive prior approval process her medical insurance for denied the medication that the patient needs. I did reach out to the appeals office of her medical insurance to start an appeal. in the meantime the patient continues using her CPAP therapy. The CPAP therapy continues to be affecting beneficial. She does use it for more than 4 hours a night. 06/18/2023 the patient is here for a pulmonary follow-up visit. The patient has been doing well. The patient states that she does not always take the methotrexate because she forgets. Also makes it feel unwell. It is reassuring that her LFTs are better this time. She is responding well to the Remicade. She will be [place] [facility] [place] the next few months. At this point the patient had been doing well would can see if we can just wean her off the methotrexate specially if she has not taking it as prescribed. We can wean slowly off if the patient feels that she is developing any worsening symptoms she can always call the office we can reassess. Ultimately we try to get her off the immunomodulator specially since his small dose and she can get really tested when she goes to [place] in the next few months. Also, the patient has been describing episodes of palpitations. She did follow-up with a die storage clerk and she did have her defibrillator downloaded but no significant arrhythmias noted per the patient. The patient has not been using her CPAP. I did explain to her that sleep apnea if untreated can result in increased palpitations and tachycardia. Therefore she is going to start using the CPAP at this time. 01/04/2024 the patient is here for a pulmonary follow-up visit. Overall she is doing well. Respiratory gasca she is doing well. She has a cold right now. Positive sick contacts. She does have primarily sinus congestion. Has a cough which productive in nature. The patient has been using the Remicade every 4 weeks. She is off the methotrexate altogether. LFTs have normalized. She has not had blood work since April. Will go ahead and request blood work at this time. The patient has not been able to use her CPAP. Currently set up CPAP of 6 cm. I did decrease down to CPAP of 5 cm with the hope that she can tolerated. In the future if she continues to have difficulties tolerating it may be reasonable to consider repeating the sleep study see if she no longer needs it. She continues with respiratory therapy with good effect. Otherwise patient is without any other complaints. 07/05/2024 the patient is here for a pulmonary follow-up visit. Overall the patient has been doing fair until recently when she started developing left lower quadrant abdominal pain. She feels like it is her diverticulitis. She also did start developing some redness of the eye the right side. She has some pressure sensation also in that area. As far as her breathing she had been doing okay. She continues on the Remicade in her respiratory medicines. She has not been able to use her CPAP because of the she can not tolerate anymore because of gagging and coughing. Therefore she has been trying positional therapy. For now because of the abdominal discomfort in the likely diverticulitis will hold off on the Remicade for couple weeks and she can start Augmentin. I will send a message out to her GI doctor so she is aware. The patient is aware though that she develops any worsening discomfort or no improvement the patient needs to go to the ER to be further addressed. 10/26/2024 the patient is here for a pulmonary follow-up visit. She continues to do well. Although she did have a bout of diverticulitis several months ago and did require antibiotics. Recently she did have a colonoscopy which was reassuring. In addition to that she had right shoulder surgery and she had a right rotator cuff tear that needed fixing. She is now using a brace. He is recovering well. From a sarcoid standpoint seems to be responding well to the Remicade every 4 weeks. She is off the immunomodulator therapy completely. In his seems to be perfectly stable. Will continue her on the every 4 weeks. Hopefully she can follow up in [place] at some point decide if any further recommendations or warranted. Will have her get blood work sometime in the fall. In addition to that specially with the brace she can not use her CPAP. She is doing well without it. She will monitor closely for any evidence of any daytime drowsiness or any documented snoring or apnea. Will monitor closely her double product. If the patient develops more symptomatic she can always call and we can find a way for her to start using the CPAP. If she continues to do well we can also consider repeating the sleep study to see if she can be without it. We did review her vaccines. To her pneumonia vaccine needs to be updated this year and also should also get her pertussis vaccine, Tdap renewed if in case she has not had it in 10 years. The patient will follow-up in 4-6 months. If she has any issues prior to this she will call for an earlier assessment. [facility] Medical History Implantable cardioverter-defibrillator (ICD) in situ NSVT (nonsustained ventricular tachycardia) GERD (gastroesophageal reflux disease) COVID-19 Depressive disorder due to separate medical condition ELMER on CPAP Cardiac sarcoidosis Sarcoidosis Surgical History H/O endoscopy Hx of colonoscopy Family History Daughter No problems noted. Social History Are you a primary career development coordinator/teacher to a significant other at home: No Do you presently have visiting nurse or other home services: No Alcohol intake: current Alcohol intake frequency: holidays/special occasions only Patient Tobacco Use Status: Never used Tobacco Review of Systems Const Reports fatigue, Denies fever(s), Denies headache(s), Denies malaise and Denies night sweats Eyes Reports irritation and Reports eye pain ENT Denies change in voice, Denies headache(s), Denies lip swelling, Denies mouth pain, Denies nasal congestion, Denies nasal discharge and Denies tongue swelling Card Denies chest pain and Reports dyspnea on exertion Resp Reports cough and Reports dyspnea on exertion GI Reports as per HPI, Denies abdominal pain and Denies heartburn Musc Reports as per HPI, Reports myalgias, Reports arthralgias and Reports limited range of motion Neuro Denies Neuro-related abnormal movements and Denies headache(s) Psych Reports no additional complaints Endo Reports fatigue Joey/Lymph Denies easy bleeding and Denies lymphadenopathy Aller/Immun Denies lip swelling and Denies tongue swelling Physical Exam Vital Signs: Last Vital Signs Pulse 62 10/26/24 11:48 BP 110/76 10/26/24 11:48 Pulse Ox 94 10/26/24 11:48 Oxygen Delivery Method Room Air 10/26/24 11:48 BMI result Body Mass Index 28.2 Const General: alert HEENT Face and sinus: Yes other (cold sores around lips) Throat: Yes posterior oropharynx abnormal (pharyngitis) Eyes Periorbital: periorbital findings abnormal right periorbital swelling, periorbital tenderness and periorbital erythema Neck Neck: Yes normal visual inspection, Yes full ROM and Yes no lymphadenopathy Chest Chest palpation & inspection: normal inspection of the chest Resp Auscultation: clear to auscultation bilaterally, no crackles, no rales and no wheezes Cardio Rate: regular rate Rhythm: regular rhythm Heart sounds: S1 normal heart sound present and S2 normal heart sound present GI Palpation (GI): Soft to palpation and Tenderness to palpation present (GI) in the LLQ; with no rebound tenderness Auscultation: normal bowel sounds Skin General skin exam: rashes and/or lesions noted Assessment & Plan Assessment & Plan (1) Sarcoidosis: Code(s): D86.9 - Sarcoidosis, unspecified Category: Medical (2) ELMER on CPAP: Code(s): G47.33 - Obstructive sleep apnea (adult) (pediatric); Z99.89 - Dependence on other enabling machines and devices Category: Medical (3) Cardiac sarcoidosis: Code(s): D86.85 - Sarcoid myocarditis Category: Medical Plan continue Remicade every 4 weeks Continue Pepcid APAP, adjusted pressures 4-8, holding right now. Consider repeating PSG in the future continue trazodone at night Fluticasone nasal spray Breo daily MARCIA as needed Follow-up in 4-6 months Orders: Orders Basic Metabolic Panel Today D86.9 - Sarcoidosis, unspecified Angiotensin Converting Enzyme Today D86.9 - Sarcoidosis, unspecified Erythrocyte Sedimentation Rate Today D86.9 - Sarcoidosis, unspecified Complete Blood Count Auto Diff Today D86.9 - Sarcoidosis, unspecified Liver Panel Today D86.9 - Sarcoidosis, unspecified Coding Level of Care Code Est Pt Level 4 (25720) Complex EM visit Add On G2211 Diagnoses Sarcoidosis D86.9 ELMER on CPAP G47.33; Z99.89 Cardiac sarcoidosis D86.85 Time Spent (min) 16
--- OUTSIDE RECORDS SUMMARY | 2024-10-26 12:33 | XMS_ITS | Clinical Summary ---
Author Organization [address] [place] [address] [place] [phone] Phone Care Team Providers Care Home Office Claims Examiner Name Role Phone Tuyet Beavers MD Primary [...] 3 mg/kg into a venous catheter. Every 4 weeks 1 Active ipratropium (ATROVENT) 21 mcg (0.03 %) nasal spray Administer 2 sprays into affected nostril(s) every 12 (twelve) hours. for 30 days 9 Active omeprazole OTC (PriLOSEC OTC) 20 mg EC tablet Take 2 tablets (40 mg total) by mouth 1 (one) time each day. 2 Active chlorpheniramin e (CHLOR-TRIMETON ) 4 mg tablet Take 1 tablet (4 mg total) by mouth every 6 (six) hours if needed for allergies. Active traZODone (DESYREL) 50 mg tablet Take 1 tablet (50 mg total) by mouth at bedtime. Active metoprolol succinate (Toprol XL) 100 mg 24 hr tablet Take 1.5 tablets in the morning and 1 tablet in the evening. 75 each 11 4 Active chlorpheniramin e (CHLOR-TRIMETON ) 4 mg tablet Take 1 tablet (4 mg total) by mouth at bedtime. Active Active Problems Problem Noted Date Diagnosed [...] with monitor zone reduced to 130 to pear picker on further episodes. 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 ICD in place. No recurrent ventricular tachycardia by device interrogation. Continue metoprolol as prescribed. Assessment & Plan (03/15/2024 4:27 PM EST): [...] ELMER (obstructive sleep apnea) 05/14/2018 Overview (03/04/2024): [facility] Home Polysomnogram: Date 06/07/2018; AHI 6, Unclassified [...] pressures PET scan for pulmonary sarcoidosis in [facility] and demonstrated increased signal in the [...] scan in 2020 showed no myocardial uptake Assessment & Plan (09/09/2024 1:17 PM EDT): PET scan for pulmonary sarcoidosis in 2018 showed increased signal in the basal- mid lateral wall and the septum. Echocardiogram at the time showed normal LV systolic function with EF of 55-60%. She was initially started on steroids then transitioned to methotrexate and Remicaide. Repeat PET scan in 2020 showed no uptake in the myocardium. She has been on an immunosuppressant for predominant pulmonary sarcoidosis and is doing well. She is followed [facility]. Splenic cyst 06/16/2013 Asthmatic bronchitis 04/25/2010 Low back pain 08/06/2007 Shoulder pain 08/06/2007 Encounters Date Type Department Care Team Description 09/16/2024 3:20 PM EDT Ancillary Procedure [facility] [address] [place] [address] 09/13/2024 Telephone [facility] [address] [facility] [address] [place] [address] Sarah Frederick MD Records 09/09/2024 12:40 PM EDT Consult [facility] [address] [place] [address] Beatris Qiu, KATARINA Cardiac sarcoidosis (Primary Dx); Ventricular tachycardia (CMS/HCC V24, CMS/HCC V28); Preop cardiovascular exam 08/29/2024 Telephone [facility] [address] [place] [address] Sarah Frederick MD Pre-op Visit 07/30/2024 12:40 AM EDT Ancillary Procedure [facility] [address] [facility] [address] [place] [address] from Last 3 Months Immunizations Name Administration [...] PROCEDURE: HISTORICAL TONSILLECTOMY OTHER SURGICAL HISTORY PROCEDURE: GA ASPIRATION&/INJECTION GANGLION CYST ANY LOCATJ; COMMENT: left wrist ABDOMINAL SURGERY 11/07/2017 PROCEDURE: HISTORICAL ABDOMINAL SURGERY; COMMENT: laparoscopic abdominal washout, omental patch to the contained perforated signoid diverticulitis, and placement of a 19-wallisian natasha drain at the pericolonic abscess. OTHER [...] Sign Reading Time Taken Comments Blood Pressure 122/64 09/09/2024 12:45 PM EDT Pulse 60 09/09/2024 12:45 PM EDT Temperature - - Respiratory Rate - - Oxygen Saturation 98% 09/09/2024 12:45 PM EDT Inhaled Oxygen Concentration - - Weight 71.2 kg (157 lb) 09/09/2024 12:45 PM EDT Height 154.9 cm (5' 1 ) 09/09/2024 12:45 PM EDT Body Mass Index 29.66 09/09/2024 12:45 PM EDT Plan of Treatment Upcoming Encounters Date Type Department Care Team (Late st Contact Info) Description 03/20/2025 9:10 AM EST Office Visit [facility] [address] [place] [id number] Beatris Qiu NP [address] [place] [id number] 05/25/2025 10:30 AM EST Ancillary Procedure [facility] [address] [place] [address] Health Maintenance Due Date Last [...] this topic Medical Devices Implanted Type Area Computer Repair Engineer Device Identifier Shelf Expiration Date Model / Serial / Lot [id number] Implanted:11/2018 by Everton Dior MD (Quantity not on file) Cardiac ICD Left: Chest [employer]HY[employer] MGMT [id number] / [id number] / Procedures Procedure Name Priority Date/Time Associated Diagnosis Comments CARDIAC DEVICE CHECK- REMOTE- MURJ Routine 09/16/2024 3:16 PM EDT ECG 12-LEAD Routine 09/09/2024 1:24 PM EDT Cardiac sarcoidosis Ventricular tachycardia (CMS/HCC V24, CMS/HCC V28) CARDIAC DEVICE CHECK- REMOTE- MURJ Routine 07/30/2024 12:39 AM EDT COLONOSCOPY Routine 01/25/2018 HEPATITIS C SCREENING Routine 11/10/2016 HPV Routine 04/04/2013 from Last 3 Months or Most Recently Relevant to Health Maintenance Results * Cardiac device check - Remote- MURJ (09/16/2024 3:16 PM EDT) Only the most recent of2 resultswithin the time period is included. Date Time Interrogation Session [id number] CV DEVICE CHECK Type Interrogation Session Remote Scheduled CV DEVICE CHECK Implantable Pulse Generator Computer Repair Engineer BSX CV DEVICE CHECK Implantable Pulse Generator Type ICD CV DEVICE CHECK Implantable Pulse Generator Model D152 CV DEVICE CHECK Implantable Pulse Generator Serial Number [id number] CV DEVICE CHECK Implantable Pulse Generator Implant Date 20181202 CV DEVICE CHECK Battery Remaining Percentage 100.00 CV DEVICE CHECK Battery Remaining Longevity 102.0 CV DEVICE CHECK Battery Status Beginning of Service CV DEVICE CHECK Capacitor Charge Time 11.300 CV DEVICE CHECK Noah Statistic RA Percent Paced 0.00 CV DEVICE CHECK Noah Statistic RV Percent Paced 0.00 CV DEVICE CHECK Atrial Tachy Statistic AT/AF [place] Percent 1.00 CV DEVICE CHECK Lead Channel Sensing Intrinsic Amplitude 3.100 CV DEVICE CHECK Lead Channel Setting Sensing Sensitivity 0.25 CV DEVICE CHECK Lead Channel Impedance Value 693 CV DEVICE CHECK Lead Channel Setting Pacing Amplitude 2.000 CV DEVICE CHECK Lead Channel Setting Pacing Pulse Width 0.4 CV DEVICE CHECK Lead Channel Sensing Intrinsic Amplitude 20.800 CV DEVICE CHECK Lead Channel Setting Sensing Sensitivity 0.60 CV DEVICE CHECK Lead Channel Impedance Value 546 CV DEVICE CHECK Lead Channel Setting Pacing [...] 0 CV DEVICE CHECK Shock Measured Impedance 82 CV DEVICE CHECK Zone Setting Type Category [...] 2 CV DEVICE CHECK Date of Service 2024-09-16 CV DEVICE CHECK Anatomical Region Laterality Modality Device Interroga tion 09/07/2024 3:41 AM EDT Impressions 09/16/2024 12:38 PM EDT Normal Remote: With Events * Normal Device Function * Events or Alerts: 1 *ATR episode 1 minute * Battery: Battery is at 100%, 8.50 yrs * Sensing, impedance and thresholds reviewed * Programmed parameters reviewed * Presenting rhythm reviewed * Heart Rate Histograms reviewed Narrative Procedure Note Everton Dior MD - 09/16/2024 IMPRESSION: Normal Remote: With Events * Normal Device Function * Events or Alerts: 1 *ATR episode 1 minute * Battery: Battery is at 100%, 8.50 yrs * Sensing, impedance and thresholds reviewed * Programmed parameters reviewed * Presenting rhythm reviewed * Heart Rate Histograms reviewed Result [facility] Everton Dior MD CV IMPLANTABLE CARDIAC DEVICE PROCEDURES Final Result * ECG 12 lead (09/09/2024 1:24 PM EDT) [facility] Ventricular Rate ECG 60 BPM GEMUSE Atrial Rate 60 BPM GEMUSE P-R Interval 160 ms GEMUSE QRS Duration 80 ms GEMUSE Q-T Interval 440 ms GEMUSE QTc 440 ms GEMUSE P Wave [place] 69 degrees GEMUSE R [place] 57 degrees GEMUSE T [place] 57 degrees GEMUSE ECG Interpretation Normal sinus rhythm Normal ECG When compared with ECG of 15-MAR-2024 14:09, No significant change was found Confirmed by BENITO RUIZ ([id number]) on 09/12/2024 4:07:18 PM GEMUSE 09/09/2024 12:5 3 PM EDT 09/12/2024 4:07 PM EDT Result [facility] Beatris Qiu NP ECG ORDERABLES Edited Result - Final GEMUSE * Colonoscopy (01/25/2018) [facility] Colonoscopy No interpretatio n, abstraced Anatomical Region Laterality Modality Other Result [facility] Historical Provider HEALTH MAINTENANCE Final Result * Hepatitis C Screening (11/10/2016) [facility] Hepatitis C Screening Abstracted Result [facility] Historical Provider HEALTH MAINTENANCE Final Result * Cervical Cancer Screening: HPV (04/04/2013) [facility] Cervical Cancer Screening: HPV Negative, abstracted Result [facility] Historical Provider HEALTH MAINTENANCE Final Result from Last 3 Months or Most Recently Relevant to Health Maintenance Insurance [employer] Member Subscriber Plan / Payer (Ef fective 2022-Present) Name:BELKIS AGGARWAL Relation to Subscriber:Self Name:Belkis Ernandez Payer ID:[id number] Group ID:[id number] Type:Not on file Address: [place] [address] [address] [phone] Care Teams Home Office Claims Examiner Relationship Specialty Start Date End Date Tuyet Beavers MD [address] [address] PCP - General Internal Medicine 03/03/24
== END 2024-10-26 12:51 | disposition home or self-care (01) ==
LOC: HO.HPS 11:47
PROVIDERS: PCP Pediatrics; Visit Provider Hospitalist
DX: D86.9 Sarcoidosis, unspecified (principal); G47.33 Obstructive sleep apnea (adult) (pediatric); Z99.89 Dependence on other enabling machines and devices; D86.85 Sarcoid myocarditis
CPT/HCPCS: 99214; G2211

== ENCOUNTER → 2024-10-26 11:46 | Outpatient (BNVA) | payer OTHER, SELFPAY | PROVIDERS: PCP Pediatrics; Visit Provider Hospitalist | DX: D86.85 Sarcoid myocarditis (principal); G47.33 Obstructive sleep apnea (adult) (pediatric); Z99.89 Dependence on other enabling machines and devices | CPT/HCPCS: 99212 ==

== ENCOUNTER 2025-04-17 09:20 | Outpatient (REF) | payer OTHER, SELFPAY ==
[2025-04-17 10:09] LABS: MANUAL DIFF FLAG NO
[2025-04-17 10:49] LABS: Hematocrit 42.5 % (37.0-47.0); Hemoglobin 14.1 g/dl (12.0-16.0); Imm Gran Abs Auto 0.02 X10*3/uL (0.00-0.03); Imm Gran Pct Auto 0.3 % (0.0-0.4); Lymphocytes Absolute Auto 2.5 X10*3/uL (1.2-4.9); Mean Corpuscular HGB Conc 33.2 g/dl (31.0-35.0); Mean Corpuscular Hemoglobin 29.3 pg (27.0-33.0); Mean Corpuscular Volume 88.4 fL (80.0-98.0); NRBC Abs Auto 0.000 X10*3/uL (0.0-0.012); NRBC Pct Auto 0.0 /100WBC (0.0-0.2); Platelet Count 274 X10*3/uL (160-400); Red Blood Count 4.81 X10*6/uL (4.20-5.50); White Blood Count 7.0 X10*3/uL (4.8-10.8)
[2025-04-17 11:17] LABS: Alanine Aminotransferase 63 U/L (0-31); Albumin Level 4.2 g/dL (3.5-5.0); Alkaline Phosphatase 70 U/L (39-117); Anion Gap 11 (12-20); Aspartate Amino Transferase 36 U/L (5-31); Blood Urea Nitrogen 12 mg/dL (9-16); Calcium 9.1 mg/dL (8.4-10.2); Carbon Dioxide 27 mmol/L (22-29); Chloride 108 mmol/L (96-108); Estimated Glomerular Filt Rate > 60; Magnesium 2.3 mg/dL (1.6-2.6); Potassium 4.3 mmol/L (3.3-5.1); Sodium 142 mmol/L (135-145); Total Protein 6.9 g/dL (6.5-8.0); Troponin-I High Sensitivity < 2.7 ng/L (<3.5-17.0)
== END 2025-04-17 09:21 | disposition home or self-care (01) ==
LOC: HO.LAB 09:20
PROVIDERS: PCP Pediatrics; Visit Provider Hospitalist
DX: G47.33 Obstructive sleep apnea (adult) (pediatric) (principal); D86.9 Sarcoidosis, unspecified; D86.85 Sarcoid myocarditis; R00.0 Tachycardia, unspecified; R42 Dizziness and giddiness; Z99.89 Dependence on other enabling machines and devices; Z79.620 Long term (current) use of immunosuppressive biologic
CPT/HCPCS: 36415; 80048; 80076; 82164; 83735; 84100; 84443; 84484; 85025; 85652; 99212

== ENCOUNTER 2025-04-17 09:20 | Outpatient (AMB) | payer OTHER, SELFPAY ==
[2025-04-17 09:23] VITALS: BP 118/72; PULSE 62; O2SAT 96; BMI 29.6
--- NOTE | 2025-04-17 09:23 | MHC.OFFVIS ---
Vital Signs 04/17/25 09:23 Height 5 ft 2 in Weight 162 lb 0.636 oz BMI 29.6 BP 118/72 Pulse 62 Pulse Source Pulse Oximeter Pulse Oximetry (%) 96 Oxygen Delivery Method Room Air Intake Visit Reasons: remicade reaction Supervisor Microwave Required: No Accompanied by: Self / Same As Patient Allergies Penicillin Allergy (Mild, Uncoded 09/27/24 09:07) Rash Sulfa Drugs Allergy (Mild, Uncoded 09/27/24 09:07) Rash HPI Comments Details: The patient is a 64-year-old woman with a known history of lymphadenopathy and cardiac sarcoidosis and obstructive sleep apnea on CPAP.. It was complicated by cardiac arrhythmia in a decreased EF require an ICD. she has been cortical steroid in addition to high doses of methotrexate with persistent symptoms of dyspnea. therefore, she had a repeat cardiac PET demonstrating still moderate amount of active sarcoid activity. the patient had been referred to the [facility] sarcoid clinic. It was their recommendation in addition to my for her to start his TNF inhibitor, Remicade. 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 However, after an extensive prior approval process her medical insurance for denied the medication that the patient needs. I did reach out to the appeals office of her medical insurance to start an appeal. in the meantime the patient continues using her CPAP therapy. The CPAP therapy continues to be affecting beneficial. She does use it for more than 4 hours a night. 06/18/2023 the patient is here for a pulmonary follow-up visit. The patient has been doing well. The patient states that she does not always take the methotrexate because she forgets. Also makes it feel unwell. It is reassuring that her LFTs are better this time. She is responding well to the Remicade. She will be following up at [facility] in the next few months. At this point the patient had been doing well would can see if we can just wean her off the methotrexate specially if she has not taking it as prescribed. We can wean slowly off if the patient feels that she is developing any worsening symptoms she can always call the office we can reassess. Ultimately we try to get her off the immunomodulator specially since his small dose and she can get really tested when she goes to [place] in the next few months. Also, the patient has been describing episodes of palpitations. She did follow-up with a dental technician and she did have her defibrillator downloaded but no significant arrhythmias noted per the patient. The patient has not been using her CPAP. I did explain to her that sleep apnea if untreated can result in increased palpitations and tachycardia. Therefore she is going to start using the CPAP at this time. 01/04/2024 the patient is here for a pulmonary follow-up visit. Overall she is doing well. Respiratory gasca she is doing well. She has a cold right now. Positive sick contacts. She does have primarily sinus congestion. Has a cough which productive in nature. The patient has been using the Remicade every 4 weeks. She is off the methotrexate altogether. LFTs have normalized. She has not had blood work since April. Will go ahead and request blood work at this time. The patient has not been able to use her CPAP. Currently set up CPAP of 6 cm. I did decrease down to CPAP of 5 cm with the hope that she can tolerated. In the future if she continues to have difficulties tolerating it may be reasonable to consider repeating the sleep study see if she no longer needs it. She continues with respiratory therapy with good effect. Otherwise patient is without any other complaints. 07/05/2024 the patient is here for a pulmonary follow-up visit. Overall the patient has been doing fair until recently when she started developing left lower quadrant abdominal pain. She feels like it is her diverticulitis. She also did start developing some redness of the eye the right side. She has some pressure sensation also in that area. As far as her breathing she had been doing okay. She continues on the Remicade in her respiratory medicines. She has not been able to use her CPAP because of the she can not tolerate anymore because of gagging and coughing. Therefore she has been trying positional therapy. For now because of the abdominal discomfort in the likely diverticulitis will hold off on the Remicade for couple weeks and she can start Augmentin. I will send a message out to her GI doctor so she is aware. The patient is aware though that she develops any worsening discomfort or no improvement the patient needs to go to the ER to be further addressed. 10/26/2024 the patient is here for a pulmonary follow-up visit. She continues to do well. Although she did have a bout of diverticulitis several months ago and did require antibiotics. Recently she did have a colonoscopy which was reassuring. In addition to that she had right shoulder surgery and she had a right rotator cuff tear that needed fixing. She is now using a brace. He is recovering well. From a sarcoid standpoint seems to be responding well to the Remicade every 4 weeks. She is off the immunomodulator therapy completely. In his seems to be perfectly stable. Will continue her on the every 4 weeks. Hopefully she can follow up in [place] at some point decide if any further recommendations or warranted. Will have her get blood work sometime in the fall. In addition to that specially with the brace she can not use her CPAP. She is doing well without it. She will monitor closely for any evidence of any daytime drowsiness or any documented snoring or apnea. Will monitor closely her double product. If the patient develops more symptomatic she can always call and we can find a way for her to start using the CPAP. If she continues to do well we can also consider repeating the sleep study to see if she can be without it. We did review her vaccines. To her pneumonia vaccine needs to be updated this year and also should also get her pertussis vaccine, Tdap renewed if in case she has not had it in 10 years. The patient will follow-up in 4-6 months. If she has any issues prior to this she will call for an earlier assessment. 04/17/2025 the patient is here for a pulmonary sick visit. Apparently she was in usual state health until after her Remicade infusion. It was many hours later in the evening when she started feeling some tachycardia shortness of breath and dizziness. Moderate severity. She had to sit down for awhile. Her symptoms did subside but she was concerned because she has had symptoms like this after Remicade in the past. But many years ago. She has been stable and tolerating therapy for many years. The question is if this could be a potential Remicade delayed reaction. Will have her get some blood work today. Respiratory exam is stable. Vital signs are stable also. The patient will continue the Remicade therapy since it has provided stability of her disease. The patient had been able to wean off the immunomodulator therapy so we like to continue this therapy if she continues to tolerate it. Will go ahead and start premedication for her with Tylenol and also Benadryl. In addition to that the patient will have blood work to address any other potential etiologies. Recently she did see the dental technician since she was felt to be okay without any evidence of any active cardiac issues. [facility] Medical History (Updated 04/17/25 @ 21:07 by Anthony Daily MD) Infliximab (Remicade) long-term use Tachycardia Implantable cardioverter-defibrillator (ICD) in situ NSVT (nonsustained ventricular tachycardia) GERD (gastroesophageal reflux disease) COVID-19 Depressive disorder due to separate medical condition ELMER on CPAP Cardiac sarcoidosis Sarcoidosis Surgical History H/O endoscopy Hx of colonoscopy Family History Daughter No problems noted. Social History Are you a primary medical care manager to a significant other at home: No Do you presently have visiting nurse or other home services: No Alcohol intake: current Alcohol intake frequency: holidays/special occasions only Patient Tobacco Use Status: Never used Tobacco Review of Systems Const Denies fatigue, Denies fever(s), Denies headache(s), Denies malaise and Denies night sweats Eyes Denies irritation and Denies eye pain ENT Denies change in voice, Denies headache(s), Denies lip swelling, Denies mouth pain, Denies nasal congestion, Denies nasal discharge and Denies tongue swelling Card Denies chest pain, Reports lightheadedness, Reports palpitations and Reports dyspnea on exertion Resp Reports cough and Reports dyspnea on exertion GI Reports as per HPI, Denies abdominal pain and Denies heartburn Musc Reports as per HPI, Reports myalgias, Reports arthralgias and Reports limited range of motion Neuro Denies Neuro-related abnormal movements and Denies headache(s) Psych Reports no additional complaints Endo Denies fatigue and Reports palpitations Joey/Lymph Denies easy bleeding and Denies lymphadenopathy Aller/Immun Denies lip swelling and Denies tongue swelling Physical Exam Vital Signs: Last Vital Signs Pulse 62 04/17/25 09:23 BP 118/72 04/17/25 09:23 Pulse Ox 96 04/17/25 09:23 Oxygen Delivery Method Room Air 04/17/25 09:23 BMI result Body Mass Index 29.6 Const General: alert Eyes Periorbital: periorbital findings abnormal right periorbital swelling, periorbital tenderness and periorbital erythema Neck Neck: Yes normal visual inspection, Yes full ROM and Yes no lymphadenopathy Chest Chest palpation & inspection: normal inspection of the chest Resp Auscultation: clear to auscultation bilaterally, no crackles, no rales and no wheezes Cardio Rate: regular rate Rhythm: regular rhythm Heart sounds: S1 normal heart sound present and S2 normal heart sound present GI Palpation (GI): Soft to palpation Auscultation: normal bowel sounds Assessment & Plan Assessment & Plan (1) Sarcoidosis: Code(s): D86.9 - Sarcoidosis, unspecified Category: Medical (2) ELMER on CPAP: Code(s): G47.33 - Obstructive sleep apnea (adult) (pediatric); Z99.89 - Dependence on other enabling machines and devices Category: Medical (3) Cardiac sarcoidosis: Code(s): D86.85 - Sarcoid myocarditis Category: Medical (4) Tachycardia: Code(s): R00.0 - Tachycardia, unspecified Category: Medical (5) Dizziness: Code(s): R42 - Dizziness and giddiness Category: Medical (6) Infliximab (Remicade) long-term use: Comment: Likely delayed Remicade reaction Code(s): Z79.620 - manager terminal (current) use of immunosuppressive biologic Category: Medical Plan continue Remicade every 4 weeks with premedication Premedication: tylenol 1000mg PO and Benadryl 25mg IV ?corticosteroids Continue Pepcid APAP, adjusted pressures 4-8, holding right now. Consider repeating PSG in the future continue trazodone at night Fluticasone nasal spray Breo daily MARCIA as needed Follow-up in 4-6 months Orders: Orders Complete Blood Count Auto Diff Today R00.0 - Tachycardia, unspecified, R42 - Dizziness and giddiness Erythrocyte Sedimentation Rate Today R00.0 - Tachycardia, unspecified, R42 - Dizziness and giddiness Angiotensin Converting Enzyme Today R00.0 - Tachycardia, unspecified, R42 - Dizziness and giddiness Troponin-I High Sensitivity Today R00.0 - Tachycardia, unspecified, R42 - Dizziness and giddiness Phosphorus Today R00.0 - Tachycardia, unspecified Basic Metabolic Panel Today R00.0 - Tachycardia, unspecified, R42 - Dizziness and giddiness Liver Panel Today R00.0 - Tachycardia, unspecified, R42 - Dizziness and giddiness TSH reflex Free T4 Today R00.0 - Tachycardia, unspecified, R42 - Dizziness and giddiness Magnesium Today R00.0 - Tachycardia, unspecified Coding Level of Care Code Est Pt Level 4 (72511) Diagnoses Sarcoidosis D86.9 ELMER on CPAP G47.33; Z99.89 Cardiac sarcoidosis D86.85 Tachycardia R00.0 Dizziness R42 Infliximab (Remicade) long-term use Z79.620 Time Spent (min) 16
--- OUTSIDE RECORDS SUMMARY | 2025-04-17 10:28 | XMS_ITS | Clinical Summary ---
Author Organization [address] [place] [address] [place] [phone] Phone Care Team Providers Care Sales And Merchandising Representative Name Role Phone Tuyet Beavers MD Primary [...] mg total) by mouth at bedtime. Active chlorpheniramin e (CHLOR-TRIMETON ) 4 mg tablet Take 1 tablet (4 mg total) by mouth at bedtime. Active metoprolol succinate (TOPROL-XL) 100 mg 24 hr tablet TAKE 1 & 1/2 (ONE & ONE-HALF) TABLETS BY MOUTH IN THE MORNING AND 1 TABLET IN THE EVENING 225 tablet 3 5 Active Active Problems Problem Noted Date Diagnosed [...] with monitor zone reduced to 130 to order picker on further episodes. Assessment & Plan (04/03/2025 2:31 PM EST): S/p ICD in place for secondary prevention. Most recent remote device interrogation shows normal device function and no new alerts. Continue metoprolol as prescribed. Assessment & Plan (09/09/2024 12:35 PM EDT): [...] ELMER (obstructive sleep apnea) 05/14/2018 Overview (03/04/2024): [facility] Home Polysomnogram: Date 06/07/2018; AHI 6, Unclassified [...] pressures PET scan for pulmonary sarcoidosis in [facility] and demonstrated increased signal in the [...] showed no myocardial uptake Assessment & Plan (04/03/2025 2:30 PM EST): PET scan for pulmonary sarcoidosis in 2018 [...] followed by [facility]. Assessment & Plan (09/09/2024 1:17 PM EDT): [...] followed by S[facility] Dr. Freeman at [facility]. Splenic cyst 06/16/2013 Asthmatic bronchitis 04/25/2010 Low back pain 08/06/2007 Shoulder pain 08/06/2007 Encounters Date Type Department Care Team Description 04/03/2025 1:40 PM EST Office Visit [facility] Cardiology [facility] [address] [place] [id number] Beatris Qiu, KATARINA Ventricular tachycardia (CMS/HCC V24, CMS/HCC V28) (Primary Dx); Cardiac sarcoidosis 03/30/2025 2:30 AM EST Ancillary Procedure [facility] [address] [place] [phone] 03/20/2025 Telephone [facility] Cardiology [address] [place] [id number] Beatris Qiu NP from Last 3 Months Immunizations Immunization Administration Dates Next Due Influenza Quadravalent, MDCK [...] PROCEDURE: HISTORICAL TONSILLECTOMY OTHER SURGICAL HISTORY PROCEDURE: ND ASPIRATION&/INJECTION GANGLION CYST ANY LOCATJ; COMMENT: left wrist ABDOMINAL SURGERY 11/07/2017 PROCEDURE: HISTORICAL ABDOMINAL SURGERY; COMMENT: laparoscopic abdominal washout, omental patch to the contained perforated signoid diverticulitis, and placement of a 19-yakut natasha drain at the pericolonic abscess. OTHER [...] on file Sexual Orientation Not on file Last Filed Vital Signs Vital Sign Reading Time Taken Comments Blood Pressure 120/68 04/03/2025 1:48 PM EST Pulse 64 04/03/2025 1:48 PM EST Temperature - - Respiratory Rate - - Oxygen Saturation 97% 04/03/2025 1:48 PM EST Inhaled Oxygen Concentration - - Weight 72.6 kg (160 lb) 04/03/2025 1:48 PM EST Height 154.9 cm (5' 1 ) 04/03/2025 1:48 PM EST Body Mass Index 30.23 04/03/2025 1:48 PM EST Plan of Treatment Upcoming Encounters Date Type Department Care Team (Late st Contact Info) Description 05/25/2025 10:30 AM EST Ancillary Procedure [facility] [address] [facility] [address] [place] [address] Health Maintenance Due Date Last Done Comments Breast Cancer Screening 1960 Pneumococcal Vaccine: 50+ Years (1 of 2 - PCV) 1980 RSV Immunization Adult Patients (1 - Risk 50-74 years 1-dose series) 07/01/2011 Zoster Vaccines (1 of 2) 07/01/2011 Cervical Cancer Screening: Pap Smear 04/04/2016 04/04/2013 HIV Screening 04/05/2022 Medicare Annual Wellness Visit 04/05/2022 Social Influencers of Health Screening 04/05/2022 Depression Screening 04/27/2024 COVID-19 Vaccine ( - season) 2024 Influenza Vaccine (#1) 2024 , 05/08/2022, 02/22/2021, Additional history exists DTaP,Tdap,and Td [...] this topic Medical Devices Implanted Type Area Sales Enablement Specialist Device Identifier Shelf Expiration Date Model / Serial / Lot [id number] Implanted:11/2018 by Everton Dior MD (Quantity not on file) Cardiac ICD Left: Chest [employer] MGMT [id number] / [id number] / Procedures Procedure Name Priority Date/Time Associated Diagnosis Comments ECG 12-LEAD Routine 04/03/2025 2:32 PM EST Ventricular tachycardia (CMS/HCC V24, CMS/HCC V28) CARDIAC DEVICE CHECK- REMOTE- MURJ Routine 03/30/2025 2:28 AM EST COLONOSCOPY Routine 01/25/2018 HEPATITIS C SCREENING Routine 11/10/2016 PAP SMEAR Routine 04/04/2013 from Last 3 Months or Most Recently Relevant to Health Maintenance Results * ECG 12 lead (04/03/2025 2:32 PM EST) Ventricular Rate ECG 64 BPM GEMUSE Atrial Rate 64 BPM GEMUSE P-R Interval 154 ms GEMUSE QRS Duration 76 ms GEMUSE Q-T Interval 426 ms GEMUSE QTc 439 ms GEMUSE P Wave [place] 72 degrees GEMUSE R [place] 67 degrees GEMUSE T [place] 71 degrees GEMUSE ECG Interpretation Normal sinus rhythm When compared with ECG of 09-SEP-2024 12:53, No significant change was found Confirmed by BENITO RUIZ ([id number]) on 04/04/2025 5:13:55 PM GEMUSE 04/03/2025 1:54 PM EST 04/04/2025 5:13 PM EST us Beatris Qiu INTERNAL MEDICINE NURSE ECG ORDERABLES Edited Result - Final GEMUSE * Cardiac device check - Remote- MURJ (03/30/2025 2:28 AM EST) Date Time Interrogation Session [id number] CV DEVICE CHECK Type Interrogation Session Remote Patient Initiated CV DEVICE CHECK Implantable Pulse Generator Sales Enablement Specialist BSX CV DEVICE CHECK Implantable Pulse Generator Type ICD CV DEVICE CHECK Implantable Pulse Generator Model D152 CV DEVICE CHECK Implantable Pulse Generator Serial Number [id number] CV DEVICE CHECK Implantable Pulse Generator Implant Date 20181202 CV DEVICE CHECK Battery Remaining Percentage 100.00 CV DEVICE CHECK Battery Remaining Longevity 96.0 CV DEVICE CHECK Battery Status Beginning of Service CV DEVICE CHECK Capacitor Charge Time 11.500 CV DEVICE CHECK Noah Statistic RA Percent Paced 0.00 CV DEVICE CHECK Noah Statistic RV Percent Paced 0.00 CV DEVICE CHECK Atrial Tachy Statistic AT/AF [place] Percent 1.00 CV DEVICE CHECK Lead Channel Sensing Intrinsic Amplitude 3.600 CV DEVICE CHECK Lead Channel Setting Sensing Sensitivity 0.25 CV DEVICE CHECK Lead Channel Impedance Value 713 CV DEVICE CHECK Lead Channel Setting Pacing Amplitude 2.000 CV DEVICE CHECK Lead Channel Setting Pacing Pulse Width 0.4 CV DEVICE CHECK Lead Channel Sensing Intrinsic Amplitude 16.400 CV DEVICE CHECK Lead Channel Setting Sensing Sensitivity 0.60 CV DEVICE CHECK Lead Channel Impedance Value 545 CV DEVICE CHECK Lead Channel Setting Pacing [...] 0 CV DEVICE CHECK Shock Measured Impedance 92 CV DEVICE CHECK Zone Setting Type Category [...] 2 CV DEVICE CHECK Date of Service 2025-03-29 CV DEVICE CHECK Anatomical Region Laterality Modality Device Interroga tion 03/17/2025 3:40 PM EST Impressions 03/29/2025 5:17 PM EST Normal Remote: No Events * Normal Device Function * Alerts or events: None * Battery: , * Sensing, impedance and thresholds reviewed * Programmed parameters reviewed * Presenting rhythm reviewed * Heart Rate Histograms reviewed * No significant changes noted Normal Remote: No Events * Normal Device Function * Alerts or events: None * Battery: Battery is at 100%, 8.00 yrs * Sensing, impedance and thresholds reviewed * Programmed parameters reviewed * Presenting rhythm reviewed * Heart Rate Histograms reviewed * No significant changes noted Narrative Procedure Note Everton Dior MD - 03/30/2025 IMPRESSION: Normal Remote: No Events * Normal Device Function * Alerts or events: None * Battery: , * Sensing, impedance and thresholds reviewed * Programmed parameters reviewed * Presenting rhythm reviewed * Heart Rate Histograms reviewed * No significant changes noted Normal Remote: No Events * Normal Device Function * Alerts or events: None * Battery: Battery is at 100%, 8.00 yrs * Sensing, impedance and thresholds reviewed * Programmed parameters reviewed * Presenting rhythm reviewed * Heart Rate Histograms reviewed * No significant changes noted Result [facility] Everton Dior MD CV IMPLANTABLE CARDIAC DEVICE PROCEDURES Final Result * Colonoscopy (01/25/2018) Pathologist [facility] Colonoscopy No interpretatio n, abstraced Anatomical Region Laterality Modality Other Result [facility] Historical Provider HEALTH MAINTENANCE Final Result * Hepatitis C Screening (11/10/2016) [facility] Hepatitis C Screening Abstracted Result [facility] Historical Provider HEALTH MAINTENANCE Final Result * Pap Smear (04/04/2013) [facility] Pap smear Negative, abstracted Result [facility] Historical Provider HEALTH MAINTENANCE Final Result from Last 3 Months or Most Recently Relevant to Health Maintenance Insurance [facility] MEDICARE Member Subscriber Plan / Payer (Ef fective 2022-Present) Name:BELKIS AGGARWAL Relation to Subscriber:Self Name:Belkis Ernandez Payer ID:[id number] Group ID:[id number] Type:Not on file Address: [place] [address] [place] [phone] Care Teams Sales And Merchandising Representative Relationship Specialty Start Date End Date Tuyet Beavers MD [address] [address] PCP - General Internal Medicine 03/03/24
== END 2025-04-17 09:46 | disposition home or self-care (01) ==
LOC: HO.HPS 09:21
PROVIDERS: PCP Pediatrics; Visit Provider Hospitalist
DX: D86.9 Sarcoidosis, unspecified (principal); G47.33 Obstructive sleep apnea (adult) (pediatric); Z99.89 Dependence on other enabling machines and devices; D86.85 Sarcoid myocarditis; R00.0 Tachycardia, unspecified; R42 Dizziness and giddiness; Z79.620 Long term (current) use of immunosuppressive biologic
CPT/HCPCS: 99214